=== PATIENT | female | born 1945 | race Caucasian/White ===

== ENCOUNTER 2016-10-17 08:52 | Emergency (ER) | payer MEDICARE, OTHER ==
[~2016-10-17] VITALS: Ht 157.5 cm; Wt 117.9 kg
[2016-10-17] MEDS ORDERED: MONT10TA2 (09:02)
[2016-10-17] MEDS ORDERED: ELIQ5TAB (09:02)
[2016-10-17] MEDS ORDERED: IRBE300T10 (09:02)
[2016-10-17] MEDS ORDERED: SYMBICORT (09:02)
[2016-10-17] MEDS ORDERED: NADO40TA (09:02)
[2016-10-17] MEDS ORDERED: TRIAMTERENE (09:02)
[2016-10-17] MEDS ORDERED: ALBU17IN2 INH (09:02)
[2016-10-17] MEDS ORDERED: methylPREDNISolone INJ 125 MG/2 ML VIAL (J2930) IV ONE (10:00)
[2016-10-17 10:11] LABS: BASO % 0.5 % (0.0-1.0); EOS # 0.2 K/mm3 (0.0-0.50); EOS % 2.5 % (0.0-3.0); LARGE UNSTAINED CELL # 0.2 K/mm3 (0.0-0.4); LARGE UNSTAINED CELL % 2.4 % (0.0-4.0); LYMPH # 1.5 K/mm3 (1.5-4.5); LYMPH % 18.8 % (24.0-44.0); MEAN CORPUSCULAR HEMOGLOBIN 31.2 pg (27.0-33.0); MEAN CORPUSCULAR HGB CONC 33.1 g/dl (32.0-36.5); MEAN CORPUSCULAR VOLUME 94.2 fl (80.0-96.0); MONO # 0.5 K/mm3 (0.0-0.8); MONO % 6.4 % (0.0-5.0); NEUTROPHILS # 4.9 K/mm3 (1.8-7.7); NEUTROPHILS % 69.4 % (36.0-66.0); PLATELET COUNT, AUTOMATED 190 k/mm3 (150-450); RED CELL DISTRIBUTION WIDTH 12.9 % (11.5-14.5); WHITE BLOOD COUNT 7.1 K/mm3 (4.0-10.0)
--- NOTE | 2016-10-17 10:36 | REP ---
CHEST: Portable single view of the chest is performed and compared to a prior study of 05/10/2015. There is no acute infiltrate. Mild chronic interstitial changes are seen in the lung bases. Cardiomediastinal silhouette is unchanged. There is significant right thoracic scoliosis. IMPRESSION: Stable exam with no acute infiltrate. Signed by Francisco Martinez MD 10/17/2016 07:44 P
[2016-10-17 10:39] LABS: ANION GAP 6 MEQ/L (8-16); BLOOD UREA NITROGEN 17 MG/DL (7-18); CALCIUM LEVEL 8.6 MG/DL (8.8-10.2); CARBON DIOXIDE LEVEL 28 MEQ/L (21-32); CHLORIDE LEVEL 103 MEQ/L (98-107); GLOMERULAR FILTRATION RATE > 60.0 (>45); GLUCOSE, FASTING 101 MG/DL (80-110); SODIUM LEVEL 137 MEQ/L (136-145)
[2016-10-17] MEDS ORDERED: IPRATROPIUM 0.5MG/ALBUTEROL 2.5MG INH SOL UD 3ML (DUONEB)(J7620) NEB ONE (10:45)
--- NOTE | 2016-10-17 11:05 | REP ---
CERVICAL SPINE SERIES: Full cervical spine series performed with a total of nine views obtained. There is no compression fracture. There is mild retrolisthesis of C3 on C4 due to posterior facet arthropathy. There is mild ligamentous calcification at the anterior aspect of C5-6. There is mild disc space narrowing at C3-4. There is diffuse narrowing, sclerosis, and spurring at the posterior facet joints. I do not see radiographic evidence of significant neural foraminal narrowing. IMPRESSION: Degenerative changes as above. Signed by Francisco Martinez MD 10/17/2016 07:45 P
[2016-10-17 12:40] VITALS: BP 151/78
--- NOTE | 2016-10-18 08:05 | ECGEPIP ---
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
== END 2016-10-17 13:01 | disposition home or self-care (01) ==
LOC: M ED 11:37
DX: M54.12 Radiculopathy, cervical region (principal); J45.909 Unspecified asthma, uncomplicated; R06.02 Shortness of breath; R94.31 Abnormal electrocardiogram [ECG] [EKG]; I48.91 Unspecified atrial fibrillation; Z91.041 Radiographic dye allergy status; Z79.899 Other long term (current) drug therapy; Z79.01 Long term (current) use of anticoagulants
CPT/HCPCS: 71010; 72052; 80048; 82550; 82553; 83880; 84443; 84484; 85025; 93005; 93041; 94640; 94760; 96374; 99285; J2930

== ENCOUNTER 2016-12-20 03:29 | Inpatient (IN) | payer MEDICARE, OTHER ==
[~2016-12-20] VITALS: Ht 154.9 cm; Wt 139.0 kg
[~2016-12-20 03:29] MED LIST: ALBU17IN2 INH; ELIQ5TAB; IRBE300T10; MONT10TA2; NADO40TA; SYMBICORT; TRIAMTERENE
[2016-12-20] MEDS ORDERED: NORCO, ANEXSIA 5/325MG TABLET (HYDROcodone/ACETAMINOPHEN) PO ONE (03:45)
[2016-12-20] MEDS ORDERED: ONDANSETRON 4MG/2ML VIAL (J2405) IV ONE (06:30)
[2016-12-20] MEDS ORDERED: MORPHINE 4 MG/ML 1ML SYRINGE IV ONE (06:30)
[2016-12-20 06:47] LABS: BASO % 0.3 % (0.0-1.0); EOS # 0.1 K/mm3 (0.0-0.50); EOS % 1.2 % (0.0-3.0); LARGE UNSTAINED CELL # 0.1 K/mm3 (0.0-0.4); LARGE UNSTAINED CELL % 1.1 % (0.0-4.0); LYMPH # 1.5 K/mm3 (1.5-4.5); LYMPH % 15.6 % (24.0-44.0); MEAN CORPUSCULAR HGB CONC 33.8 g/dl (32.0-36.5); MEAN CORPUSCULAR VOLUME 91.8 fl (80.0-96.0); MONO # 0.5 K/mm3 (0.0-0.8); MONO % 5.1 % (0.0-5.0); NEUTROPHILS # 6.9 K/mm3 (1.8-7.7); NEUTROPHILS % 76.7 % (36.0-66.0); PLATELET COUNT, AUTOMATED 201 k/mm3 (150-450); RED CELL DISTRIBUTION WIDTH 12.5 % (11.5-14.5)
[2016-12-20 06:55] LABS: INR 1.15
[2016-12-20 07:27] LABS: ANION GAP 12 MEQ/L (8-16); BLOOD UREA NITROGEN 14 MG/DL (7-18); CALCIUM LEVEL 8.4 MG/DL (8.8-10.2); CARBON DIOXIDE LEVEL 23 MEQ/L (21-32); CHLORIDE LEVEL 93 MEQ/L (98-107); CREATININE FOR GFR 0.85 MG/DL (0.55-1.02); GLOMERULAR FILTRATION RATE > 60.0 (>39); GLUCOSE, FASTING 106 MG/DL (83-110); POTASSIUM SERUM 3.7 MEQ/L (3.5-5.1); SODIUM LEVEL 128 MEQ/L (136-145)
--- NOTE | 2016-12-20 07:31 | REP ---
Clinical: Preoperative assessment. Comparison: 10/17/2016. Technique: Portable AP view of the chest. Findings: Marked scoliosis remains stable. Cardiomegaly cannot be excluded. Lung woods are clear and without focal consolidation, effusion, or pneumothorax. Airway appears patent and midline to the thoracic inlet. Impression: Cannot exclude mild cardiomegaly. Stable chest x-ray without acute cardiopulmonary process appreciated. Signed by Selvin Braxton MD 12/20/2016 07:23 A
--- NOTE | 2016-12-20 07:35 | REP ---
Clinical: Trauma. Technique: AP, lateral, bilateral oblique views of the right ankle. Findings: Comminuted displaced fracture of the distal fibular metaphysis is appreciated along with disruption of the ankle mortise widening along the medial aspect of the joint space. Small fracture fragments in the medial joint space are also identified which are nonspecific and may reflect associated acute versus chronic fractures. Underlying arthritic degenerative changes to the ankle and midfoot along with moderate calcaneal heal spur. Impression: 1. Comminuted displaced fracture of the distal fibular metaphysis with disruption of the joint space widening along the medial mortise. Possible small acute fractures involving the medial malleolus. Overlying soft tissue swelling. 2. Moderate arthritic degenerative changes to the ankle and midfoot. Signed by Selvin Braxton MD 12/20/2016 07:26 A
[2016-12-20] MEDS: IPRATROPIUM 0.5MG/ALBUTEROL 2.5MG INH SOL UD 3ML (DUONEB)(J7620) NEB SCH ×2 (08:00→20:00)
[2016-12-20] MEDS ORDERED: IRBE300T10 PO (08:40)
[2016-12-20] MEDS ORDERED: SYMB16INH INH (08:40)
[2016-12-20] MEDS ORDERED: MONT10TA2 PO (08:40)
[2016-12-20] MEDS ORDERED: ELIQ5TAB PO (08:40)
[2016-12-20] MEDS: SENOKOT S TAB PO SCH ×2 (09:00→21:03)
[2016-12-20] MEDS: SYMBICORT 160/4.5MCG INHALER 6GM INH SCH ×2 (09:00→19:56)
[2016-12-20] MEDS: VITAMIN D 1,000 INTERNATIONAL UNITS TABLET PO SCH (09:00)
[2016-12-20] MEDS ORDERED: MORPHINE 2 MG/ML 1ML SYRINGE IV PRN ×2 (09:15→10:00)
[2016-12-20] MEDS ORDERED: TRIA37.5 PO (09:52)
[2016-12-20] MEDS ORDERED: NADO40TA PO (09:52)
[2016-12-20] MEDS ORDERED: VITAD1000T PO (09:52)
[2016-12-20] MEDS ORDERED: TYLE325T5 PO (09:52)
[2016-12-20] MEDS ORDERED: IPRASOL4 INH (09:52)
[2016-12-20] MEDS ORDERED: ONDANSETRON 4MG/2ML VIAL (J2405) IV PRN (10:00)
[2016-12-20] MEDS ORDERED: IPRATROPIUM 0.5MG/ALBUTEROL 2.5MG INH SOL UD 3ML (DUONEB)(J7620) NEB PRN (10:00)
[2016-12-20] MEDS ORDERED: ACETAMINOPHEN TAB 650MG DOSE (2X325MG) PO PRN (10:00)
[2016-12-20] MEDS: NS 1,000 ML IV SCH (10:29)
--- NOTE | 2016-12-20 11:14 | CR.PDOC ---
[facility] Consultation Consultation DATE OF CONSULTATION: Dec 20, 2016 at 03:29 REFERRING PROVIDER: Dr. Navas ATTENDING PHYSICIAN: Dr. Hamzah Curran REASON FOR CONSULTATION/CHIEF COMPLAINT: Right ankle fracture. HISTORY OF PRESENT ILLNESS: Patient is a 71 y/o obese female who sustained a mechanical fall from standing height resulting in immediate pain, deformity, and inability to bear weight. She did not immediately seek care and presented to the ER this morning after she could not bear weight on the ankle. Patient reported drinking alcohol the night before. She denies and antecedent chest pain , shortness of breath, or other constitutional symptoms. ALLERGIES: Please see below. HOME MEDICATIONS: Please see below. PAST MEDICAL HISTORY: 1. Asthma. 2. Hypertension 3. A fib. 4. Cervical cancer PAST SURGICAL HISTORY: 1. hysterectomy FAMILY HISTORY: non contributory SOCIAL HISTORY: Marital status and/or living arrangements:lives with Tobacco use: social ETOH: none Illicit drug use: none REVIEW OF SYSTEMS: CONSTITUTIONAL: no fevers, chills, or night sweats. CARDIOVASCULAR: No chest pain, palpitations. RESPIRATORY: + wheezing. GENITOURINARY: No frequency, urgency, or burning with urination. MUSCULOSKELETAL: recent contralateral LE pain. GASTROINTESTINAL: no nausea, vomiting, diarrhea. PHYSICAL EXAMINATION: VITAL SIGNS: Please see below. GENERAL APPEARANCE: morbidly obese female, appears stated age, no acute distress. HEENT: normocephalic, atraumatic. RESPIRATORY: non labored breathing. CARDIOVASCULAR: 2+ DP, PT pulse, brisk cap refill all digits RLE. EXTREMITIES: RLE exam demonstrates no open wounds or abrasions. there is diffuse soft tissue swelling about the right ankle. able to flex/extend all toes. NEUROLOGICAL: sensation/motor intact in RLE tibial, sural, saphenous, SPN, DPN distributions. LABORATORY DATA: Please see below. Radiographs: Plain radiographs of the right ankle demonstrate a displaced distal fibula fracture with significant medial clear space widening ASSESSMENT: 71 y/o female with an unstable right ankle fracture PLAN: 1. Pending medical and anesthesia clearance, to OR for ORIF right ankle. 2. Discussed with the patient the risks, benefits, indications, and alternatives of operative versus nonoperative treatment. I also counseled the patient that I will be her operating surgeon, but her follow up care will be conducted by [facility]. She expressed understanding with this arrangement and provided informed consent for right ankle open reduction and internal fixation. All questions were answered. 3. Will be admitted to the hospitalist service post operatively Vital Signs/I&O Vital Signs Date Time Temp Pulse Resp B/P (MAP) Pulse Ox O2 Delivery O2 Flow Rate FiO2 12/20/16 09:40 16 12/20/16 09:24 98.3 82 138/62 (87) 96 Room Air Laboratory Data Labs 24H Laboratory Tests 2 12/20/16 06:41: White Blood Count 9.0, Red Blood Count 3.97L, Hemoglobin 12.3, Hematocrit 36.4, Mean Corpuscular Volume 91.8, Mean Corpuscular Hemoglobin 31.0, Mean Corpuscular Hemoglobin Concent 33.8, Red Cell Distribution Width 12.5, Platelet Count 201, Neutrophils (%) (Auto) 76.7H, Lymphocytes (%) (Auto) 15.6L, Monocytes (%) (Auto) 5.1H, Eosinophils (%) (Auto) 1.2, Basophils (%) (Auto) 0.3 , Neutrophils # (Auto) 6.9, Lymphocytes # (Auto) 1.5, Monocytes # (Auto) 0.5, Eosinophils # (Auto) 0.1, Basophils # (Auto) 0.0, Large Unclassified Cells % 1.1 , Large Unclassified Cells # 0.1, Prothrombin Time 14.9H, Prothromb Time International Ratio 1.15, Activated Partial Thromboplast Time 31.6, Anion Gap 12 , Glomerular Filtration Rate > 60.0, Blood Urea Nitrogen 14, Creatinine 0.85, Sodium Level 128L, Potassium Level 3.7, Chloride Level 93L, Carbon Dioxide Level 23, Calcium Level 8.4L 12/20/16 09:00: 12/20/16 09:21: Urine Random Sodium 70, Urine Random Potassium 48.1, Urine Random Chloride 123 CBC/BMP Laboratory Tests 12/20/16 06:41 Red Blood Count 3.97 L, Mean Corpuscular Volume 91.8, Mean Corpuscular Hemoglobin 31.0, Mean Corpuscular Hemoglobin Concent 33.8, Red Cell Distribution Width 12.5, Neutrophils (%) (Auto) 76.7 H, Lymphocytes (%) (Auto) 15.6 L, Monocytes (%) (Auto) 5.1 H, Eosinophils (%) (Auto) 1.2, Basophils (%) ( Auto) 0.3, Neutrophils # (Auto) 6.9, Lymphocytes # (Auto) 1.5, Monocytes # (Auto ) 0.5, Eosinophils # (Auto) 0.1, Basophils # (Auto) 0.0, Calcium Level 8.4 L Allergies Coded Allergies: Contrast Media (Verified Allergy, Intermediate, 10/17/16) rash Home Medications Scheduled Apixaban Base (Eliquis) 5 Mg Tab, 5 MG PO BID, (Reported) Budesonide/Formoterol (Symbicort 160-4.5 Mcg/Act) 60 Puff/Inhaler Aers, 2 PUFF INH BID, (Reported) Hydrochlorothiazide W/Triamter (Triamterene/Hydrochloroth 37.5-25 mg) 1 Tab Tab , 1 TAB PO DAILY, (Reported) Irbesartan (Irbesartan) 300 Mg Tab, 300 MG PO DAILY, (Reported) Montelukast Sodium (Montelukast Sodium) 10 Mg Tab, 10 MG PO QHS, (Reported) Nadolol (Nadolol) 40 Mg Tab, 40 MG PO DAILY, (Reported) Vitamin D (Vitamin D3) 1,000 Units Tab, 1,000 UNITS PO DAILY, (Reported) Scheduled PRN Acetaminophen (Tylenol) 325 Mg Tab, 650 MG PO Q4H PRN for PAIN, (Reported) Albuterol/Ipratropium (Ipratropium [place]/Albut 0.5-2.5 (3) mg/3Ml) 1 Monica Monica, 1 MONICA INH Q4H PRN for SHORTNESS OF BREATH, (Reported) MICHAEL CURRAN MD Dec 20, 2016 11:14
[2016-12-20] MEDS: IRBESARTAN 150 MG TAB PO SCH (12:15)
[2016-12-20] MEDS: NADOLOL 20MG TABLET PO SCH (12:16)
[2016-12-20 14:35] LABS: ANION GAP 8 MEQ/L (8-16); BLOOD UREA NITROGEN 11 MG/DL (7-18); CALCIUM LEVEL 8.8 MG/DL (8.8-10.2); CARBON DIOXIDE LEVEL 28 MEQ/L (21-32); CHLORIDE LEVEL 93 MEQ/L (98-107); CREATININE FOR GFR 0.76 MG/DL (0.55-1.02); GLOMERULAR FILTRATION RATE > 60.0 (>39); GLUCOSE, FASTING 104 MG/DL (83-110); POTASSIUM SERUM 4.2 MEQ/L (3.5-5.1); SODIUM LEVEL 129 MEQ/L (136-145)
[2016-12-20] MEDS ORDERED: ALBU17IN INH (15:11)
[2016-12-20] MEDS: HEPARIN SOD (PORCINE) 5000 UNITS/ML VIAL SQ SCH ×2 (16:19→21:03)
--- NOTE | 2016-12-20 16:42 | HPE ---
DATE OF ADMISSION: 12/20/2016 PRIMARY CARE PROVIDER: Carol Coffey MD CHIEF COMPLAINT: Fall with right ankle pain. HISTORY OF PRESENT ILLNESS: This is a 71-year-old female patient with underlying medical history of obesity, atrial fibrillation, on Eliquis, last dose was yesterday night, asthma, hypertension, questionable obstructive sleep apnea. The patient was at a democr[employer] with the family. Has been drinking a lot of beers. Subsequently, the patient sustained a mechanical fall. She stepped into a pothole and sprained her right ankle from standing high, resulting in pain and deformity, inability to bear weight. The patient did not immediately seek care. Presented to the emergency department in the morning after she could not bear weight. Denies any chest pain, head injury, loss of consciousness, shortness of breath. The patient stated that she is taking low salt diet at baseline. Reported that drinking a lot of alcohol was an exception last night. Usually she does not drink that much and usually she only drinks on very rare occasions, once a month. The patient's baseline ambulates without assistance, but is limited due to her asthma. She baseline can ambulate from the emergency room to the parking lot without any difficulty and is able to do household cleaning and mobility is limited by respiration not by chest pain. Used to see Dr. Monroy as pulmonology. Does not use CPAP or oxygen at home. ALLERGIES: CONTRAST MEDIA. PAST MEDICAL HISTORY: Asthma. Hypertension. Atrial fibrillation. Cervical cancer. PAST SURGICAL HISTORY: Hysterectomy. Back surgery. FAMILY HISTORY: Reported mother with breast cancer at age 63, father with myocardial infarction ([place]) at age 55. SOCIAL HISTORY: Lives with . Denies smoking. Drinks alcoholic beverages on occasion, once a month. Has been drinking excessively last night. Denies illicit drug use. REVIEW OF SYSTEMS: Reported right lower extremity pain. All other review of systems are negative. HOME MEDICATIONS: - acetaminophen 650 mg by mouth every 4 hours as needed - Ventolin inhaler four times a day as needed - DuoNebs every 4 hours as needed - Eliquis 5 mg by mouth twice a day - Symbicort inhalation twice a day - hydrochlorothiazide triamterine 37.5, 25 mg by mouth daily - irbesartan 300 mg by mouth daily - Singulair 10 mg by mouth at bedtime - Nadolol 40 mg by mouth daily - vitamin D 1000 units by mouth daily PHYSICAL EXAMINATION: VITAL SIGNS: Temperature 99.3, pulse 82, respirations 16, blood pressure 151/80, pulse oximetry 98. GENERAL: The patient morbidly obese. In no acute distress. Comfortable. HEENT: Normocephalic, atraumatic. PULMONARY: Bilateral wheeze, mild. CARDIAC: Regular rate and rhythm. Normal S1, S2. ABDOMEN: Soft, nontender, nondistended. Positive bowel sounds. EXTREMITIES: No open wounds. Soft tissue swelling right ankle. Able to move toes. Sensation is intact. LABORATORY: WBC 9, hemoglobin and hematocrit 12.3/36.4, platelets 201. Chemistry: Sodium 128, potassium 3.7, chloride 93, bicarbonate 23, BUN 14, creatinine 0.8. EKG shows atrial fibrillation with no ST segment changes. X-rays show comminuted displaced fracture of distal fibular metaphysis with disruption of the joint space, widening along the medial mortise. Possible small acute fracture involving the medial malleolus. Overlying soft tissue swelling. ASSESSMENT AND PLAN: This is a 71-year-old female patient with underlying medical history of obesity, asthma, hypertension, atrial fibrillation, anticoagulation, admitted status post mechanical fall with unstable right ankle fracture. PROBLEMS: 1. Mechanical fall with unstable right ankle fracture. Possible open reduction internal fixation of right ankle. Orthopedics has been consulted. X-rays appreciated. Pain medication and bowel regimen is prescribed. Withholding Eliquis for surgery. Will restart Eliquis after surgery. IV fluids given. Nothing by mouth (npo) for procedure. The patient was Metabolic Equivalent of Task (MET) score 4, low intermediate risk with no known previous coronary arterial disease, or cerebrovascular disease. Low intermediate risk for intermediate risk procedure. Currently is medically optimized. Continue beta blockers. Deep venous thrombosis (DVT) prophylaxis as per orthopedics. 2. Atrial fibrillation. Continue beta blockers. 3. Hypertension. Continue Avapro., Nadolol. Holding triamterine and hydrochlorothiazide for now giving the patient is receiving IV fluids. 4. Asthma. Continue home medication of Symbicort, Singulair, nebulizer treatments. 5. Vitamin D deficiency. Continue supplementation. 6. Questionable history of obstructive sleep apnea. Will need outpatient followup. Obstructive sleep apnea (ANTONY) protocol. 7. Morbid obesity complicating care. 8. Deep venous thrombosis (DVT) prophylaxis. The patient was on Eliquis. Currently on sequential compression devices. Holding Eliquis and anticoagulation for surgery, likely tomorrow. DISPOSITION: Pending OR.
[2016-12-20 18:27] VITALS: BP 156/80
[2016-12-20] MEDS: MONTELUKAST 10 MG TAB PO SCH (21:02)
[2016-12-20] MEDS: PERCOCET 5MG/325MG TAB PO PRN (21:04)
[2016-12-20 22:00] VITALS: BP 102/56
[2016-12-21] MEDS: IPRATROPIUM 0.5MG/ALBUTEROL 2.5MG INH SOL UD 3ML (DUONEB)(J7620) NEB SCH ×4 (01:14→20:00)
[2016-12-21] MEDS: NS 1,000 ML IV SCH ×2 (01:43→11:43)
[2016-12-21] MEDS: PERCOCET 5MG/325MG TAB PO PRN ×4 (05:51→21:35)
[2016-12-21] MEDS: HEPARIN SOD (PORCINE) 5000 UNITS/ML VIAL SQ SCH ×3 (05:52→21:34)
[2016-12-21 06:00] VITALS: BP 120/50
[2016-12-21] MEDS: SYMBICORT 160/4.5MCG INHALER 6GM INH SCH ×2 (07:15→19:28)
--- NOTE | 2016-12-21 07:22 | ECGEPIP ---
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
[2016-12-21 07:49] LABS: MEAN CORPUSCULAR HEMOGLOBIN 31.7 pg (27.0-33.0); MEAN CORPUSCULAR HGB CONC 34.9 g/dl (32.0-36.5); MEAN CORPUSCULAR VOLUME 90.9 fl (80.0-96.0); RED CELL DISTRIBUTION WIDTH 12.8 % (11.5-14.5); WHITE BLOOD COUNT 7.7 K/mm3 (4.0-10.0)
[2016-12-21 08:16] LABS: ANION GAP 7 MEQ/L (8-16); BLOOD UREA NITROGEN 13 MG/DL (7-18); CALCIUM LEVEL 8.2 MG/DL (8.8-10.2); CARBON DIOXIDE LEVEL 27 MEQ/L (21-32); CHLORIDE LEVEL 97 MEQ/L (98-107); CREATININE FOR GFR 0.96 MG/DL (0.55-1.02); GLOMERULAR FILTRATION RATE > 60.0 (>39); GLUCOSE, FASTING 103 MG/DL (83-110); MAGNESIUM LEVEL 1.8 MG/DL (1.8-2.4); POTASSIUM SERUM 3.8 MEQ/L (3.5-5.1); SODIUM LEVEL 131 MEQ/L (136-145)
[2016-12-21] MEDS: IRBESARTAN 150 MG TAB PO SCH (10:21)
[2016-12-21] MEDS: SENOKOT S TAB PO SCH ×2 (10:22→21:34)
[2016-12-21] MEDS: VITAMIN D 1,000 INTERNATIONAL UNITS TABLET PO SCH (10:22)
[2016-12-21] MEDS: NADOLOL 20MG TABLET PO SCH (10:22)
[2016-12-21 14:00] VITALS: BP 144/89
--- NOTE | 2016-12-21 17:38 | IPN ---
DATE: 12/20/2016 Patient seen and examined. No acute events overnight. Denies any chest pain, pressure or discomfort. Denies any fevers or chills. VITAL SIGNS: Temperature 98.8, pulse 80, respirations 18, blood pressure 120/50, pulse oximetry 93% on room air. LABORATORY DATA: WBC 7.7, hemoglobin and hematocrit 10.1/29, platelets 151. Sodium 131, potassium 3.8, chloride 97, bicarbonate 27, BUN 13, creatinine 0.96. PHYSICAL EXAMINATION: GENERAL: Patient obese, alert, oriented times three, in no acute distress. HEENT: Normocephalic, atraumatic. PULMONARY: Bilaterally clear to auscultation. CARDIAC: Regular rate and rhythm. Normal S1, S2. EXTREMITIES: Cast in place. Soft tissue swelling right lower extremity. Able to move bilateral toes. Dorsalis pedis/posterior tibial (DP/P T) pulses intact bilaterally. ASSESSMENT AND PLAN: This is a 71-year-old female patient with underlying medical history of obesity, asthma, hypertension, atrial fibrillation, on anticoagulation with Eliquis, admitted status post mechanical fall with unstable right ankle fracture. 1. Mechanical fall with unstable right ankle fracture. Possible open reduction internal fixation of right ankle tomorrow. Orthopaedics has been consulted. X-ray appreciated. Pain regimen and bowel regimen as prescribed. Holding Eliquis for surgery. Restart Eliquis after surgery. IV fluids. Nothing by mouth prior to procedure. Patient has METs score greater than 4, low intermediate risk, with no known previous coronary artery disease or cerebral vascular disease for low intermediate risk procedures. Previous echos reviewed with Dr. Aleman. Deep venous thrombosis (DVT) prophylaxis. Heparin subcutaneous. Continue beta blockers. Currently medically optimized. 2. Atrial fibrillation. Continue beta blockers. Will restart Eliquis once surgery is done. 3. Hypertension. Continue Avapro, nadolol. Holding triamterine and hydrochlorothiazide. Receiving IV fluids. 4. Asthma. Continue Symbicort, Singulair, nebulizer treatment. 5. Vitamin D deficiency. Continue supplementation. 6. Questionable history of obstructive sleep apnea. Will need outpatient followup. Obstructive sleep apnea (ANTONY) protocol. 7. Morbid obesity, complicating care. 8. Deep venous thrombosis (DVT) prophylaxis. Heparin subcutaneous. Will restart Eliquis and discontinue heparin subcutaneous after surgery. DISPOSITION: Pending operating room (OR).
[2016-12-21] MEDS: MONTELUKAST 10 MG TAB PO SCH (21:34)
[2016-12-21 22:00] VITALS: BP 86/44
--- NOTE | 2016-12-21 22:20 | REPUSA ---
Clinical history: Pain. Comparison: none. Findings: 2 views of the left knee were obtained. The osseous structures are intact, without evidence of fracture or dislocation. There is mild joint space narrowing with surrounding osteophytes. The so ft tissues are within normal limits. Impression: No acute findings. Mild osteoarthritis.
[2016-12-22] VITALS (7 sets, daily range): BP systolic 107–125; BP diastolic 57–65
[2016-12-22] MEDS: IPRATROPIUM 0.5MG/ALBUTEROL 2.5MG INH SOL UD 3ML (DUONEB)(J7620) NEB SCH ×4 (01:30→20:00)
[2016-12-22] MEDS: PERCOCET 5MG/325MG TAB PO PRN ×4 (01:45→21:49)
[2016-12-22] MEDS: NS 1,000 ML IV SCH ×2 (02:35→21:48)
[2016-12-22 07:11] LABS: MEAN CORPUSCULAR HEMOGLOBIN 31.9 pg (27.0-33.0); MEAN CORPUSCULAR HGB CONC 34.4 g/dl (32.0-36.5); MEAN CORPUSCULAR VOLUME 92.6 fl (80.0-96.0); RED CELL DISTRIBUTION WIDTH 12.8 % (11.5-14.5); WHITE BLOOD COUNT 7.9 K/mm3 (4.0-10.0)
[2016-12-22] MEDS: SYMBICORT 160/4.5MCG INHALER 6GM INH SCH ×2 (07:12→20:09)
[2016-12-22 07:48] LABS: CALCIUM LEVEL 7.9 MG/DL (8.8-10.2); CREATININE FOR GFR 1.4 MG/DL (0.55-1.02); GLOMERULAR FILTRATION RATE 39.6 (>39); MAGNESIUM LEVEL 1.9 MG/DL (1.8-2.4); POTASSIUM SERUM 3.8 MEQ/L (3.5-5.1)
[2016-12-22] MEDS: NADOLOL 20MG TABLET PO SCH (08:38)
[2016-12-22] MEDS: IRBESARTAN 150 MG TAB PO SCH (08:38)
[2016-12-22] MEDS ORDERED: IRBESARTAN 75MG TABLET PO ONE (08:45)
[2016-12-22] MEDS: SENOKOT S TAB PO SCH ×2 (08:50→21:48)
[2016-12-22] MEDS: VITAMIN D 1,000 INTERNATIONAL UNITS TABLET PO SCH (08:50)
[2016-12-22] MEDS ORDERED: fentaNYL 100 MCG/2 ML INJECTION (J3010) As Ordered ONE (13:47)
[2016-12-22] MEDS ORDERED: ceFAZolin 1GM INJ (J0690) As Ordered ONE (13:58)
[2016-12-22] MEDS ORDERED: BUPIVACAINE/EPIN 0.25% 30 ML VIAL As Ordered ONE (13:58)
--- NOTE | 2016-12-22 13:59 | IPN ---
DATE: 12/22/2016 The patient seen and examined. No acute events overnight. Denies any chest pain, pressure or discomfort. Reported left knee pain. X-ray is appreciated with no fracture. The patient has history of arthritis on the left lower extremity, left knee. VITAL SIGNS: Temperature 98.6, pulse 80, respirations 16, blood pressure 125/59, pulse oximetry 95% on room air. LABORATORY DATA: WBC 7.9, hemoglobin and hematocrit 10/29.1, platelets 171. Chemistries: Sodium 130, potassium 2.8, chloride 96, bicarbonate 26, BUN 21, creatinine 1.4. PHYSICAL EXAMINATION: GENERAL: Patient obese. Alert and oriented times three, in no acute distress. HEENT: Normocephalic, atraumatic. PULMONARY: Bilaterally clear to auscultation. CARDIAC: Regular rate and rhythm. Normal S1, S2. ABDOMEN: Soft. Nontender. Positive bowel sounds. EXTREMITIES: Cast in place. Soft tissue swelling right lower extremity. Able to move bilateral toes. Dorsalis pedis/posterior tibial (DP/PT) pulses intact bilateral. ASSESSMENT AND PLAN: This is a 71-year-old female patient with underlying medical history of obesity, asthma, hypertension, atrial fibrillation on anticoagulation with Eliquis at home, admitted status post mechanical fall with unstable right ankle fracture. PROBLEMS: 1. Mechanical fall with unstable right ankle fracture. Patient is scheduled for open reduction internal fixation today. Orthopaedics has been consulted. X-ray appreciated. Pain regimen and bowel regimen as prescribed. Holding Eliquis. Will restart Eliquis tomorrow after surgery. Sequential compression device for today. Heparin subcutaneous has been held since last night. IV fluids. Nothing by mouth for procedure. Bowel regimen as ordered. 2. Acute kidney injury. Possibly prerenal. IV fluids. Hold ARBs. No NSAIDS. Follow up renal ultrasound and urine studies. Continue to monitor. 3. Atrial fibrillation. Continue beta raissa. Restart Eliquis tomorrow. 4. Hypertension. Continue nadolol. Holding Avapro, triamterine and hydrochlorothiazide. Receiving IV fluids. Patient with elevated creatinine today. 5. Asthma. Continue Symbicort, Singulair, nebulizer treatment. 6. Vitamin D deficiency. Continue supplementation. 7. Questionable obstructive sleep apnea. Outpatient followup. Obstructive sleep apnea (ANTONY) protocol. 8. Morbid obesity complicating care. 9. Deep venous thrombosis (DVT) prophylaxis. Heparin subcutaneous was given last night, will restart Eliquis tomorrow. Sequential compression device today. DISPOSITION: Pending operating room (OR) today.
[2016-12-22 14:03] LABS: OSMOLALITY URINE 297 MOSM/KG (500-800)
[2016-12-22] MEDS ORDERED: MIDAZOLAM INJ 2 MG/2 ML VIAL (J2250) As Ordered ONE (14:37)
[2016-12-22] MEDS ORDERED: ceFAZolin 2 GM/D5W 50 ML IV BAG (J0690) As Ordered ONE (15:21)
[2016-12-22] MEDS ORDERED: PHENYLephrine HCL 500 MCG/5 ML (100MCG/ML) SYRINGE (J2370) As Ordered ONE (16:04)
[2016-12-22] MEDS ORDERED: ePHEDrine SULFATE 25 MG/5 ML(5MG/ML) SYRINGE As Ordered ONE (16:04)
[2016-12-22] MEDS ORDERED: PROPOFOL 200 MG/20 ML VIAL As Ordered ONE (16:05)
--- NOTE | 2016-12-22 16:37 | REP ---
Clinical: Status post fixation for lateral malleolar fracture. Technique: Intraoperative fluoroscopic imaging. Findings: Two intraoperative fluoroscopic images demonstrate the patient to be status post open reduction and fixation for lateral malleolar fracture. Satisfactory reduction and fixation noted. Total fluoroscopic time 12 seconds. Impression: Status post satisfactory reduction and fixation. Signed by Selvin Braxton MD 12/22/2016 04:29 P
[2016-12-22] MEDS ORDERED: MEPERIDINE INJ 25 MG/ML VIAL (J2175) IV PRN (17:15)
[2016-12-22] MEDS ORDERED: fentaNYL 100 MCG/2 ML INJECTION (J3010) IV PRN (17:15)
[2016-12-22] MEDS ORDERED: PERCOCET 5MG/325MG TAB PO PRN (17:15)
[2016-12-22] MEDS ORDERED: ONDANSETRON 4MG/2ML VIAL (J2405) IV PRN ×2 (17:15→18:15)
[2016-12-22] MEDS ORDERED: METOCLOPRAMIDE INJ 10MG/2ML VIAL (J2765) IV PRN (17:15)
[2016-12-22] MEDS ORDERED: LR 1,000 ML IV SCH (17:15)
[2016-12-22] MEDS ORDERED: PERCOCET 5MG/325MG TAB As Ordered ONE (17:32)
[2016-12-22] MEDS ORDERED: MORPHINE 4 MG/ML 1ML SYRINGE IV PRN (18:15)
[2016-12-22] MEDS ORDERED: ACETAMINOPHEN TAB 650MG DOSE (2X325MG) PO PRN (18:15)
[2016-12-22] MEDS ORDERED: D5W/LR 1,000 ML IV SCH (18:15)
--- NOTE | 2016-12-22 20:18 | ECHO ---
DATE OF PROCEDURE: 12/20/2016 REFERRING PHYSICIAN: Farida Navas MD PATIENT LOCATION: Room 5140 REASON FOR ECHOCARDIOGRAM: Shortness of breath. 2D MEASUREMENTS: IVS: 1.3 cm LV: 3.9 cm LVPW: 1.3 cm Aortic root: 2.8 LA: 4.1 cm IVC: 1.8 cm DOPPLER MEASUREMENTS: Peak velocity across the aortic valve: 1.7 m/s Peak velocity across the LVOT: 0.9 m/s Peak gradient across the aortic valve: 11 mmHg Mitral E: 1.0, Mitral A: 0.4, with a ratio of 2.3 Maximum tricuspid valve velocity: 2.5 m/s 2D COMMENTS: 1. Mildly increased left ventricular wall thickness with normal left ventricular size and normal global left ventricular systolic function. The estimated global left ventricular systolic ejection fraction is 60 to 65%. 2. Mildly enlarged left atrium. Normal right atrium and right ventricle. 3. The atrial septum appeared to be normal without evidence of defect or shunt. 4. Normal aortic root. 5. No pericardial effusion seen. 6. Mildly calcified aortic valve. Leaflet excursion appeared to be normal. Mildly calcified mitral annuls with normal anterior mitral valve leaflet motion. Normal tricuspid valve and pulmonic valve. The proximal pulmonary artery branches were not well visualized. 7. The inferior vena cava was normal in size, central venous pressure is most likely normal. DOPPLER: Only mild tricuspid regurgitation detected. The calculated pulmonary artery systolic pressure varies between 30 to 40 mmHg. Assessment of the left ventricular diastolic function appeared to be normal. IMPRESSION: 1. Normal global left ventricular systolic function with mild concentric left ventricular hypertrophy. Left ventricular diastolic function appeared to be normal. 2. Aortic valve sclerosis without significant stenosis or aortic regurgitation. 3. Mildly enlarged left atrium with mitral annulus calcification, no significant mitral regurgitation detected. 4. Mild tricuspid regurgitation with mild pulmonary hypertension. 5. There is an echogenic structure noted in the right atrium in limited views and this seems to be artifactual from the annulus at the base of the left ventricle. MTDD
[2016-12-22] MEDS: MONTELUKAST 10 MG TAB PO SCH (21:48)
[2016-12-22] MEDS: ASCORBIC ACID 500 MG TAB PO SCH (21:48)
[2016-12-22] MEDS: PREGABALIN 50 MG CAP (LYRICA) PO SCH (21:48)
[2016-12-23] MEDS: IPRATROPIUM 0.5MG/ALBUTEROL 2.5MG INH SOL UD 3ML (DUONEB)(J7620) NEB SCH ×4 (02:00→19:17)
[2016-12-23] MEDS: PERCOCET 5MG/325MG TAB PO PRN ×2 (05:17→10:42)
[2016-12-23 06:00] VITALS: BP 112/61
[2016-12-23] MEDS: NS 1,000 ML IV SCH (06:40)
[2016-12-23 06:58] LABS: MEAN CORPUSCULAR HEMOGLOBIN 31.8 pg (27.0-33.0); MEAN CORPUSCULAR HGB CONC 34.3 g/dl (32.0-36.5); MEAN CORPUSCULAR VOLUME 92.5 fl (80.0-96.0); RED CELL DISTRIBUTION WIDTH 13.1 % (11.5-14.5); WHITE BLOOD COUNT 8.5 K/mm3 (4.0-10.0)
[2016-12-23 07:09] LABS: CALCIUM LEVEL 7.9 MG/DL (8.8-10.2); CREATININE FOR GFR 1.37 MG/DL (0.55-1.02); GLOMERULAR FILTRATION RATE 40.6 (>39); MAGNESIUM LEVEL 1.9 MG/DL (1.8-2.4); POTASSIUM SERUM 4.2 MEQ/L (3.5-5.1)
[2016-12-23] MEDS: SYMBICORT 160/4.5MCG INHALER 6GM INH SCH ×2 (07:22→19:16)
[2016-12-23 07:24] VITALS: O2SAT 98
--- NOTE | 2016-12-23 07:57 | REP ---
Clinical: Acute renal insufficiency. Technique: Real time beard scale ultrasound examination using curved array transducer. Findings: The left kidney is not visualized. The right kidney is normal in contour, size, echogenicity, and reniform shape with evidence for moderate hydronephrosis and proximal hydroureter as well as 1.9 cm mid pole cyst. No obvious nephrolithiasis or mass lesion appreciated. Right kidney measures 9.9 x 5.6 x 4.9 cm. The bladder is distended and measures 17.7 x 11.7 x 10.7 cm (1163 ml). Impression: Moderate right-sided hydroureteronephrosis and distended bladder. Left kidney not visualized. Signed by Selvin Braxton MD 12/23/2016 07:48 A
[2016-12-23] MEDS ORDERED: MIRALAX *UNIT DOSE* 17GM PACKET PO SCH (09:00)
[2016-12-23] MEDS ORDERED: APIXABAN 5 MG TAB (ELIQUIS) PO SCH (09:00)
--- NOTE | 2016-12-23 10:07 | REP ---
Clinical: Ankle fracture for postoperative evaluation. Technique: AP and lateral views. Findings: The patient is status post open reduction and fixation for lateral malleolar/distal fibular fracture. Satisfactory reduction is appreciated. Postoperative changes noted. Impression: Status post open reduction and fixation. Signed by Selvin Braxton MD 12/23/2016 09:58 A
[2016-12-23] MEDS: NADOLOL 20MG TABLET PO SCH (10:41)
[2016-12-23] MEDS: PREGABALIN 50 MG CAP (LYRICA) PO SCH ×2 (10:42→19:58)
--- NOTE | 2016-12-23 10:42 | REP ---
Clinical: Obstructive uropathy. Comparison: 08/05/2013. Findings: Mild right-sided hydroureteronephrosis and distended bladder are appreciated without obstructive ureteral calculus or obvious cause for bladder obstruction. The right kidney includes 3 mm nonobstructing calculus which is unchanged compared to 2014. The left kidney/ureter are grossly normal. Calcifications in the pelvis are compatible with phleboliths and remain stable. Liver, spleen, pancreas, and bilateral adrenal glands are normal for noncontrast evaluation. Cholelithiasis suggested without evidence for acute cholecystitis. The enteric system is without obstruction or acute inflammatory process. Sigmoid diverticulosis noted without acute diverticulitis. No pelvic fluid or ascites. No free air. No adenopathy. Musculoskeletal structures demonstrate age-related degenerative changes without focal osseous abnormality. Lung bases demonstrate chronic changes with small left lower lobe atelectasis/12 mm consolidation. Impression: 1. Mild right-sided hydroureteronephrosis and distended bladder without obvious cause. Stable 3 mm nonobstructing right renal calculus. Normal appearance to the left kidney/ureter. 2. Colonic diverticulosis without acute diverticulitis. 3. Small focus of left basilar atelectasis/consolidation may warrant followup chest CT at 3 months. Signed by Selvin Braxton MD 12/23/2016 10:33 A
[2016-12-23] MEDS: VITAMIN D 1,000 INTERNATIONAL UNITS TABLET PO SCH (10:43)
[2016-12-23] MEDS: SENOKOT S TAB PO SCH ×2 (10:43→19:58)
[2016-12-23] MEDS: ASCORBIC ACID 500 MG TAB PO SCH ×2 (10:43→19:58)
--- NOTE | 2016-12-23 11:44 | SMCUROLCON ---
Urology Consultation General Date of Consultation 12/23/16 Reason For Consultation This patient is seen for Closed Fracture Of Right Distal Fibula. History of Present Illness The patient is a [71]-year-old [female] with a past medical history for [HTN; AFIB; asthma; sleep apnea; morbid obesity; cervical cancer (MAYTE/BSO)]. Consulted for right HUN/distended bladder; ARF. Jay insertion recommended. Serial Cr and repeat US (12/24/16). If persist Cr rise and hydronephrosis, consider JJ insertion. Otherwise, MAG3 with lasix (12/24/16). Full consultation dictated. NPO 2400hr. Cardiology clearance. Medications Current Medications Current Medications Acetaminophen (Tylenol Tab) 650 mg Q4HP PRN PO MILD PAIN OR FEVER; Start at 10:00; Stop 12/22/16 at 18:10; Status DC Acetaminophen (Tylenol Tab) 650 mg Q4HP PRN PO MILD PAIN (PS 1-4); Start at 18:15; Stop 01/21/17 at 18:14 Albuterol/ Ipratropium (Duoneb (Ipr 0.5mg/Alb 2.5mg)) 3 ml Q2HP PRN NEB SOB/ WHEEZING; Start 12/20/16 at 10:00; Stop 01/21/17 at 09:59 Albuterol/ Ipratropium (Duoneb (Ipr 0.5mg/Alb 2.5mg)) 3 ml RQ6H NEB Last administered on 12/22/16 13:18; Start 12/20/16 at 08:00; Stop 01/21/17 at 07:59 Apixaban (Eliquis) 5 mg BID PO ; Start 12/23/16 at 09:00; Stop 12/23/16 at 10:26; Status DC Ascorbic Acid (Vitamin C) 500 mg BID PO Last administered on 12/23/16 10:43; Start 12/22/16 at 21:00; Stop 01/21/17 at 20:59 Budesonide/ Formoterol Fumarate (Symbicort 160/ 4.5mcg) 2 puff BID INH Last administered on 12/23/16 07:22; Start 12/20/16 at 09:00; Stop 01/21/17 at 08:59 Cefazolin Sodium/ Dextrose 2 gm/IV Miscellaneous Supplies 50 ml @ 75 mls/hr ASDIRECTED IV ; Start 12/20/16 at 16:30; Stop 12/20/16 at 17:43; Status DC Cefazolin Sodium/ Dextrose 2 gm/IV Miscellaneous Supplies 50 ml @ 75 mls/hr PREOP IV ; Start 12/22/16 at 06:00; Stop 12/22/16 at 16:15; Status DC Cefazolin Sodium/ Dextrose 2 gm/IV Miscellaneous Supplies 50 ml @ 75 mls/hr PREOP IV ; Start 12/22/16 at 06:00; Stop 12/22/16 at 18:20; Status DC Cefazolin Sodium/ Dextrose 2 gm/IV Miscellaneous Supplies 50 ml @ 75 mls/hr Q6H IV Last administered on 12/23/16 04:34; Start 12/22/16 at 22:00; Stop 12/23/16 at 06:00; Status DC Dextrose/Lactated Ringer's 1,000 ml @ 100 mls/hr Q10H IV Last administered on 12/22/16 18:00; Start 12/22/16 at 18:15; Stop 12/22/16 at 20:35; Status DC Fentanyl Citrate (Sublimaze) 25 mcg Q5MP PRN IV MODERATE PAIN (PS 4-7); Start 12/22/16 at 17:15; Stop 12/22/16 at 18:15; Status DC Heparin Sodium (Porcine) (Heparin) 5,000 units Q8H SQ Last administered on 21:34; Start 12/20/16 at 14:00; Stop 12/21/16 at 23:00; Status DC Heparin Sodium (Porcine) (Heparin) 5,000 units Q8H SQ ; Start 12/23/16 at 14:00; Stop 12/28/16 at 13:59 Home Med (Med Rec Complete!) ASDIRECTED XX ; Start 12/20/16 at 10:00; Stop at 10:00; Status DC Irbesartan (Avapro) 300 mg DAILY PO Last administered on 12/21/16 10:21; Start 12/20/16 at 09:00; Stop 12/22/16 at 12:44; Status DC Lactated Ringer's 1,000 ml @ 100 mls/hr Q10H IV ; Start 12/22/16 at 17:15; Stop 12/22/16 at 18:15; Status DC Meperidine HCl (Demerol) 12.5 mg Q5MP PRN IV SHIVERING; Start 12/22/16 at 17:15 ; Stop 12/22/16 at 18:15; Status DC Metoclopramide HCl (REGLAN INJection) 10 mg Q6HP PRN IV NAUSEA OR VOMITING; Start 12/22/16 at 17:15; Stop 12/22/16 at 18:15; Status DC Miscellaneous (Unresolved Clarification Entry) SEE LABEL COMMENTS UNRESOLVED XX ; Start 12/22/16 at 00:01; Stop 12/22/16 at 20:31; Status DC Montelukast Sodium (Singulair) 10 mg QHS PO Last administered on 12/22/16 21:48 ; Start 12/20/16 at 21:00; Stop 01/21/17 at 20:59 Morphine Sulfate (Morphine Sulfate Inj) 2 mg Q2HP PRN IV SEVERE PAIN (PS 8-10) Last administered on 12/20/16 14:18; Start 12/20/16 at 10:00; Stop 12/22/16 at 18: 14; Status DC Morphine Sulfate (Morphine Sulfate Inj) 2 mg Q4HP PRN IV PAIN Last administered on 12/20/16 09:23; Start 12/20/16 at 09:15; Stop 12/20/16 at 10:00; Status DC Morphine Sulfate (Morphine Sulfate Inj) 3 mg Q2HP PRN IV PAIN; Start 12/22/16 at 18:15; Stop 12/29/16 at 18:14 Nadolol (Corgard) 40 mg DAILY PO Last administered on 12/23/16 10:41; Start 12/20/16 at 09:00; Stop 01/21/17 at 08:59 Ondansetron HCl (ZOFRAN INJection) 4 mg Q4HP PRN IV NAUSEA OR VOMITING; Start 12/22/16 at 17:15; Stop 12/22/16 at 18:15; Status DC Ondansetron HCl (ZOFRAN INJection) 4 mg Q6HP PRN IV NAUSEA OR VOMITING; Start 12/20/16 at 10:00; Stop 12/22/16 at 18:15; Status DC Ondansetron HCl (ZOFRAN INJection) 4 mg Q6HP PRN IV NAUSEA; Start 12/22/16 at 18 :15; Stop 01/21/17 at 18:14 Oxycodone/ Acetaminophen (Percocet 5mg/ 325mg Tablet) 1 tab ASDIRECTED PRN PO MILD/MODERATE PAIN (PS 1-7) Last administered on 12/22/16 17:36; Start 12/22/16 at 17:15; Stop 12/22/16 at 18:15; Status DC Oxycodone/ Acetaminophen (Percocet 5mg/ 325mg Tablet) 1 tab Q4HP PRN PO MODERATE PAIN (PS 5-7) Last administered on 12/22/16 10:04; Start 12/20/16 at 10: 00; Stop 12/22/16 at 18:16; Status DC Oxycodone/ Acetaminophen (Percocet 5mg/ 325mg Tablet) 1 tab Q4HP PRN PO PAIN; Start 12/22/16 at 18:15; Stop 12/29/16 at 18:14 Oxycodone/ Acetaminophen (Percocet 5mg/ 325mg Tablet) 2 tab Q4HP PRN PO PAIN Last administered on 12/23/16 10:42; Start 12/22/16 at 18:15; Stop 12/29/16 at 18 :14 Pregabalin (Lyrica) 50 mg BID PO Last administered on 12/23/16 10:42; Start 12/22/16 at 21:00; Stop 12/29/16 at 20:59 Senna/Docusate Sodium (Senokot S) 1 tab BID PO Last administered on 12/23/16 10 :43; Start 12/20/16 at 09:00; Stop 01/21/17 at 08:59 Sodium Chloride 1,000 ml @ 100 mls/hr Q10H IV Last administered on 12/22/16 02 :35; Start 12/20/16 at 10:00; Stop 12/22/16 at 18:11; Status DC Sodium Chloride 1,000 ml @ 100 mls/hr Q10H IV Last administered on 12/23/16 06 :40; Start 12/22/16 at 20:45; Stop 12/23/16 at 07:39; Status DC Tamsulosin HCl (Flomax) 0.4 mg QHS PO ; Start 12/23/16 at 21:00; Stop 01/22/17 at 20:59 Vitamin D (Vitamin D) 1,000 units DAILY PO Last administered on 12/23/16t 10:43 ; Start 12/20/16 at 09:00; Stop 01/21/17 at 08:59 Allergies Allergies: Coded Allergies: Contrast Media (Verified Allergy, Intermediate, 10/17/16) rash Vital Signs/I&O Vital Signs Date Time Temp Pulse Resp B/P (MAP) Pulse Ox O2 Delivery O2 Flow Rate FiO2 12/23/16 11:12 16 12/23/16 10:41 74 112/61 12/23/16 09:00 Room Air 12/23/16 07:24 98 1.0 12/23/16 06:00 99.4 I&O- Last 24 Hours up to 6 AM 12/23/16 06:00 Intake Total 3205 ml Output Total 500 ml Balance 2705 ml Laboratory Data 24H Labs Laboratory Tests 2 12/22/16 13:48: Urine Appearance HAZY, Urine Color YELLOW, Urine pH 5.0, Urine Specific [place] 1.011, Urine Protein NEGATIVE, Urine Glucose (UA) NEGATIVE, Urine Ketones NEGATIVE, Urine Urobilinogen 0.2, Urine Bilirubin NEGATIVE, Urine Leukocyte Esterase NEGATIVE, Urine Blood NEGATIVE, Urine Nitrite NEGATIVE, Urine WBC (Auto ) 1, Urine RBC (Auto) 1, Urine Hyaline Casts (Auto) 7, Urine Bacteria (Auto) 2+H , Urine Squamous Epithelial Cells 2, Urine Mucus (Auto) SMALL, Urine Sperm (Auto ) , Urine Random Osmolality 297L, Urine Random Sodium < 10, Urine Random Potassium 22.8, Urine Random Chloride 17 12/23/16 06:43: Anion Gap 8, Glomerular Filtration Rate 40.6, Blood Urea Nitrogen 23H, Creatinine 1.37H, Sodium Level 129L, Potassium Level 4.2, Chloride Level 97L, Carbon Dioxide Level 24, Calcium Level 7.9L, Magnesium Level 1.9 CBC/BMP Laboratory Tests 12/23/16 06:43 Red Blood Count 2.91 L, Mean Corpuscular Volume 92.5, Mean Corpuscular Hemoglobin 31.8, Mean Corpuscular Hemoglobin Concent 34.3, Red Cell Distribution Width 13.1, Calcium Level 7.9 L Microbiology Microbiology 12/20/16 Urine Culture - Final, Complete MIGDALIA MAST MD Dec 23, 2016 11:44
--- NOTE | 2016-12-23 12:32 | CR ---
DATE OF CONSULTATION: 12/23/2016 This 71-year-old female was evaluated in consultation as requested by Dr. Navas on 12/23/2016 for right hydroureteronephrosis. She presented to hospital (12/20/2016) following a fall, resulting in a right distal fibular fracture. During hospitalization, the hospitalist noted rise in serum creatinine. The patient notes a 2-day history of daytime frequency. She denies sensations of incomplete bladder emptying. Prior to presentation, there is no history of voiding symptoms, gross hematuria, urinary tract infection, urolithiasis, flank pain, or constitutional symptoms. She was, however, constipated, not having a bowel movement for 5 days. PAST MEDICAL HISTORY: Is significant for hypertension, asthma, atrial fibrillation, cardiomegaly, sleep apnea, morbid obesity, and cervical cancer (total abdominal hysterectomy with bilateral salpingo-oophorectomy). REVIEW OF SYSTEMS: Is negative for diabetes mellitus, thyroid pathology, headaches, epilepsy, cerebrovascular accident (CVA), glaucoma, peptic ulcer disease, urolithiasis, cholelithiasis, or bloodborne diseases. CURRENT MEDICATIONS: Include: - Eliquis - Lyrica - Symbicort - Avapro - Corgard - DuoNeb - hydrochlorothiazide She is allergic to INTRAVENOUS CONTRAST. Socially, she is and has one child. She is a nonsmoker. Does not consume alcohol. FAMILY HISTORY: Is significant for myocardial infarction on the paternal side and breast adenocarcinoma on the maternal side. General examination revealed a comfortable individual. Her heart rate was 74, respiratory rate was 20, blood pressure was 112/61, and temperature was 99.4 degrees Fahrenheit. Palpation of the head and neck failed to reveal the presence of lymphadenopathy. Auscultation of the chest demonstrated diffuse expiratory wheezes with normal heart sounds. Examination of the back and abdomen were benign. She was morbidly obese. A cast is noted on her right lower extremity. A urinalysis (12/22/2016) demonstrated a pH of 5.0 but no evidence of leukocytes, nitrites, or microhematuria. Serum hematologic and biochemical indices determination (12/23/2016) demonstrated a hemoglobin of 9.2, leukocyte count of 8.5, and a creatinine of 1.4 (increased). Computed tomography of the abdomen and pelvis without intravenous contrast (12/23/2016) demonstrated right hydroureteronephrosis (moderate), distended urinary bladder, a right kidney 3 mm nonobstructing calculus, and a normal left kidney. Jay catheter insertion was requested by urology. Greater than 1200 mL of clear urine drained. The urine specimen for culture and sensitivity was obtained. ASSESSMENT: 1. Urinary retention. 2. Right hydroureteronephrosis. 3. Acute renal failure. 4. Right fibular fracture. 5. Hypertension. 6. Asthma. 7. Atrial fibrillation. 8. Cardiomegaly. 9. Sleep apnea. 10. Morbid obesity. 11. Anticoagulation therapy. PLAN: The above findings were discussed with the patient, nursing staff, and hospitalist. Jay catheter straight drainage will be maintained. The urine specimen for culture and sensitivity was obtained. Serial creatinine determinations and renal ultrasonography are recommended. Should these not improve, consideration for cystoscopy with right double J stent insertion will be given. Should these values improve, a mercaptoacetyltriglycerine (MAG) 3 renography with Lasix will be obtained. Consideration for urodynamics evaluation for bladder function as an outpatient with urology will be given. Should surgical intervention be required, cardiac clearance is appropriate with discontinuation of anticoagulation. Should you require additional information, please do not hesitate to contact me. Thanking you for the confidence of your referral. Sincerely, Bryce
[2016-12-23 14:00] VITALS: BP 104/52
[2016-12-23] MEDS: HEPARIN SOD (PORCINE) 5000 UNITS/ML VIAL SQ SCH ×2 (14:57→20:16)
--- NOTE | 2016-12-23 15:49 | IPN ---
DATE: 12/23/2016 Patient seen and examined. No acute events overnight. Status post orthopedic surgery yesterday. Denies any chest pain, pressure, or discomfort. Denies any fevers or chills. VITAL SIGNS: Temperature 99.4, pulse 74, respirations 16, blood pressure 112/61, pulse oximetry 98% on 1 liter. LABORATORY DATA: WBC 8.5, hemoglobin and hematocrit 9.2/26.9, platelets 173. Chemistry: Sodium 129, potassium 4.2, chloride 97, bicarbonate 24, BUN 23, creatinine 1.37. Ultrasound of the kidney shows moderate right-sided hydroureteronephrosis, distended urinary bladder. Left kidney not visualized. PHYSICAL EXAMINATION: GENERAL: Patient obese. Alert and oriented times three in no acute distress. HEENT: Normocephalic, atraumatic. PULMONARY: Bilaterally clear to auscultation. CARDIAC: Regular rate and rhythm. Normal S1, S2. ABDOMEN: Soft and nontender. Positive bowel sounds. EXTREMITIES: Cast in place. No significant pain. Clean, dry, and intact. BACK: No costovertebral angle (CVA) tenderness. ASSESSMENT AND PLAN: This is a 71-year-old patient with underlying medical history of obesity, asthma, hypertension, atrial fibrillation, on anticoagulation with Eliquis at home, admitted status post mechanical fall with unstable right ankle fracture. 1. Mechanical fall with unstable right ankle fracture. Patient status post OR. Orthopedics has been consulted. X-ray appreciated. Pain regimen and bowel regimen was prescribed. Will restart Eliquis tomorrow. Heparin subcutaneous today for deep vein thrombosis (DVT) prophylaxis. Bowel regimen as prescribed. 2. Acute kidney injury (KATIA), likely secondary to obstructive uropathy. Jay catheter in place. Ultrasound and CT appreciated. Intravenous (IV) fluids in it given. Withholding angiotensin receptor blockers (ARBs). No nonsteroidal anti-inflammatory drugs (NSAIDs). Urology has been consulted. Flomax has been prescribed. Followup BUN and creatinine. Will reorder ultrasound tomorrow to assess. Withholding Eliquis given possibility of potential urological procedure. 3. Hypertension. Continue nadolol, withholding Avapro, triamterene, and hydrochlorothiazide. Received IV fluids. Patient with elevated creatinine. 4. Asthma. Continue Symbicort, Singulair, nebulizer treatment. 5. Vitamin D deficiency. Supplementation continued. 6. Questionable obstructive sleep apnea. Outpatient followup. Obstructive sleep apnea (ANTONY) protocol. 7. Morbid obesity complicating care. 8. DVT prophylaxis. Heparin subcutaneous until restarting Eliquis tomorrow. DISPOSITION: Pending urological workup.
[2016-12-23] MEDS: MONTELUKAST 10 MG TAB PO SCH (19:57)
[2016-12-23] MEDS: TAMSULOSIN 0.4 MG CAP PO SCH (19:57)
[2016-12-23] MEDS: MIRALAX *UNIT DOSE* 17GM PACKET PO SCH (19:58)
[2016-12-23 22:00] VITALS: BP 121/51
[2016-12-24] MEDS: IPRATROPIUM 0.5MG/ALBUTEROL 2.5MG INH SOL UD 3ML (DUONEB)(J7620) NEB SCH ×4 (02:00→20:00)
[2016-12-24] MEDS: PERCOCET 5MG/325MG TAB PO PRN ×4 (02:15→21:00)
[2016-12-24] MEDS: HEPARIN SOD (PORCINE) 5000 UNITS/ML VIAL SQ SCH (05:19)
[2016-12-24 06:00] VITALS: BP 116/58
[2016-12-24 06:45] LABS: MEAN CORPUSCULAR HEMOGLOBIN 31.9 pg (27.0-33.0); MEAN CORPUSCULAR HGB CONC 35.2 g/dl (32.0-36.5); MEAN CORPUSCULAR VOLUME 90.6 fl (80.0-96.0); RED CELL DISTRIBUTION WIDTH 13.2 % (11.5-14.5); WHITE BLOOD COUNT 5.9 K/mm3 (4.0-10.0)
[2016-12-24 07:02] LABS: CALCIUM LEVEL 7.7 MG/DL (8.8-10.2); CREATININE FOR GFR 1.05 MG/DL (0.55-1.02); GLOMERULAR FILTRATION RATE 55.2 (>39); MAGNESIUM LEVEL 1.9 MG/DL (1.8-2.4)
[2016-12-24] MEDS: SYMBICORT 160/4.5MCG INHALER 6GM INH SCH ×2 (07:26→20:27)
[2016-12-24] MEDS: NADOLOL 20MG TABLET PO SCH (07:37)
[2016-12-24] MEDS: PREGABALIN 50 MG CAP (LYRICA) PO SCH ×2 (07:37→21:00)
[2016-12-24] MEDS: MIRALAX *UNIT DOSE* 17GM PACKET PO SCH ×2 (07:37→21:00)
[2016-12-24] MEDS: ASCORBIC ACID 500 MG TAB PO SCH ×2 (07:38→21:00)
[2016-12-24] MEDS: SENOKOT S TAB PO SCH ×2 (07:38→21:04)
[2016-12-24] MEDS: VITAMIN D 1,000 INTERNATIONAL UNITS TABLET PO SCH (07:38)
[2016-12-24] MEDS ORDERED: MAGNESIUM CITRATE 300 ML BTL PO ONE (09:00)
[2016-12-24] MEDS ORDERED: APIXABAN 5 MG TAB (ELIQUIS) PO SCH (09:00)
--- NOTE | 2016-12-24 09:48 | REP ---
Clinical: Flank pain. Hydronephrosis. Technique: Real time beard scale ultrasound examination using curved array transducer. Findings: The bilateral kidneys are relatively normal in contour, size, echogenicity, and reniform shape without hydronephrosis, obvious nephrolithiasis, cystic or mass lesion. In comparison with the recent CT dated 12/23/2016, the right kidney demonstrates no obvious hydronephrosis and this may have been transient. Right kidney measures 10.3 x 5.1 x 4.9 cm. Left kidney measures 11.5 x 5.3 x 3.4 cm. The bladder is collapsed and Jay catheter is noted. Incidental cholelithiasis noted. Impression: 1. Normal appearance the bilateral kidneys without nephrolithiasis or hydronephrosis. 2. Cholelithiasis. Signed by Selvin Braxton MD 12/24/2016 09:40 A
[2016-12-24 10:26] LABS: OSMOLALITY URINE 261 MOSM/KG (500-800)
[2016-12-24 10:28] LABS: CALCIUM LEVEL 7.9 MG/DL (8.8-10.2); CREATININE FOR GFR 1.05 MG/DL (0.55-1.02); GLOMERULAR FILTRATION RATE 55.2 (>39); POTASSIUM SERUM 4.1 MEQ/L (3.5-5.1)
--- NOTE | 2016-12-24 10:52 | IPNPDOC ---
Assessment/Plan Date Seen The patient was seen on 12/24/16. Plan/VTE VTE Prophylaxis Ordered?: Yes Plan/Urinary Catheter Reason for insertion/continuin: Acute obstruct/retention Subjective Review oF Systems Chief Complaint The patient is a 71-year-old female admitted with a reason for visit of Closed Fracture Of Right Distal Fibula; HTN; AFIB; asthma; sleep apnea; morbid obesity ; cervical cancer (MAYTE/BSO)]. Urinary retention; ARF; right HUN. Centeno insertion (12/23/16) drained >1200cc clear urine. Urine clear. Constipation. Comfortable. 61, 18, 116/58, 97.7F. Abdo: Obese. Benign. Centeno: 400cc/3hr. Urine clear. (12/24/16) Hg 8.7, wbc 5.9, Cr 1.1. US (12/24/16) no HUN. Urine culture () pending. A: Above. HUN and ARF resolved with centeno. P: Centeno to [place]. SHAHEEN. Consider UDS as outpatient Urology. Decrease constipation. Objective Vital Signs/I&O Vital Signs Date Time Temp Pulse Resp B/P (MAP) Pulse Ox O2 Delivery O2 Flow Rate FiO2 12/24/16 08:11 18 12/24/16 07:41 Room Air 12/24/16 07:37 61 116/58 12/24/16 06:00 97.7 93 12/23/16 22:19 2.0 I&O- Last 24 Hours up to 6 AM 12/24/16 05:59 Intake Total 960 ml Output Total 1300 ml Balance -340 ml Laboratory Data Labs 24H Laboratory Tests 2 12/23/16 11:46: Urine Appearance HAZY, Urine Color YELLOW, Urine pH 5.0, Urine Specific [place] 1.013, Urine Protein NEGATIVE, Urine Glucose (UA) NEGATIVE, Urine Ketones TRACEH , Urine Urobilinogen 0.2, Urine Bilirubin NEGATIVE, Urine Leukocyte Esterase NEGATIVE, Urine Blood 2+H, Urine Nitrite NEGATIVE, Urine WBC (Auto) 0, Urine RBC (Auto) 23H, Urine Hyaline Casts (Auto) 0, Urine Bacteria (Auto) NEGATIVE, Urine Squamous Epithelial Cells 0, Urine Mucus (Auto) SMALL, Urine Sperm (Auto) 12/24/16 06:22: Anion Gap 6L, Glomerular Filtration Rate 55.2, Blood Urea Nitrogen 25H, Creatinine 1.05H, Sodium Level 120#L, Potassium Level 4.0, Chloride Level 91L, Carbon Dioxide Level 23, Calcium Level 7.7L, Magnesium Level 1.9 12/24/16 09:27: Urine Random Osmolality 261L, Urine Random Sodium 10, Urine Random Potassium 5.1 , Urine Random Chloride < 10 12/24/16 09:52: Anion Gap 10, Glomerular Filtration Rate 55.2, Blood Urea Nitrogen 23H, Creatinine 1.05H, Sodium Level 126L, Potassium Level 4.1, Chloride Level 91L, Carbon Dioxide Level 25, Calcium Level 7.9L CBC/BMP Laboratory Tests 12/24/16 06:22 Red Blood Count 2.73 L, Mean Corpuscular Volume 90.6, Mean Corpuscular Hemoglobin 31.9, Mean Corpuscular Hemoglobin Concent 35.2, Red Cell Distribution Width 13.2, Calcium Level 7.7 L 12/24/16 09:52 Calcium Level 7.9 L Microbiology Microbiology 12/23/16 Urine Culture, Received Pending 12/20/16 Urine Culture - Final, Complete MIGDALIA MAST MD Dec 24, 2016 10:52
--- NOTE | 2016-12-24 10:55 | IPN ---
DATE: 12/24/2016 Patient seen and examined. Asymptomatic overnight. Has a Jay catheter putting out urine. Denies any chest pain, pressure, or discomfort. Denies any flank pain. Denies any abdominal pain. Continues to report constipation. Magnesium citrate has been ordered by the orthopedic team. VITAL SIGNS: Temperature 97.7, pulse 61, respirations 18, blood pressure 116/58, pulse oximetry 93% on room air. LABORATORY DATA: WBC 8.5.9hemoglobin and hematocrit 9.8.7624,7platelets [id number] Chemistry: Sodium 1120 potassium 4. chloride 971 bicarbonate 243 BUN 235 creatinine 1.305 PHYSICAL EXAMINATION: GENERAL: Patient obese. Alert and oriented times three in no acute distress. HEENT: Normocephalic, atraumatic. PULMONARY: Bilaterally clear to auscultation. CARDIAC: Regular rate and rhythm. Normal S1, S2. ABDOMEN: Soft and nontender. Positive bowel sounds. EXTREMITIES: Cast in place. No significant pain. BACK: No CVA tenderness. ASSESSMENT AND PLAN: This is a 71-year-old female patient with underlying medical history of obesity, asthma, hypertension, atrial fibrillation, on anticoagulation with Eliquis at home, admitted status post mechanical fall with unstable right ankle fracture. 1. Mechanical fall with unstable right ankle fracture status post OR. Orthopedics has been consulted. Pain regimen and bowel regimen was prescribed. Restarting Eliquis for deep vein thrombosis (DVT) prophylaxis. 2. Acute kidney injury (KATIA), possibly secondary to obstructive uropathy. Jay catheter in place. Ultrasound and CT appreciated. Intravenous (IV) fluids initially given, withholding ARBs. No NSAIDs. Urology has been consulted. Jay in place. BUN and creatinine improving. Repeat ultrasound shows resolution of hydro. Restarting Eliquis. 3. Hyponatremia. Likely secondary to polydipsia. Urine and electrolytes have been ordered. Will monitor closely. Versus postobstructive diuresis. 4. Hypertension. Continue nadolol, withholding Avapro, triamterene, and hydrochlorothiazide. Received IV fluids. 5. Asthma. Continue Symbicort, Singulair, nebulizer treatment. 6. Vitamin D deficiency. Supplementation continues. 7. Constipation. Bowel regimen as ordered. 8. Questionable obstructive sleep apnea. Outpatient followup. ANTONY protocol. 9. Morbid obesity complicating care. 10. DVT prophylaxis. Restarting Eliquis. DISPOSITION: Pending physical therapy, resolution of hyponatremia.
[2016-12-24 14:00] VITALS: BP 119/59
[2016-12-24] MEDS: MONTELUKAST 10 MG TAB PO SCH (21:00)
[2016-12-24] MEDS: APIXABAN 5 MG TAB (ELIQUIS) PO SCH (21:00)
[2016-12-24] MEDS: TAMSULOSIN 0.4 MG CAP PO SCH (21:00)
[2016-12-24 22:00] VITALS: BP 114/56
[2016-12-25] MEDS: IPRATROPIUM 0.5MG/ALBUTEROL 2.5MG INH SOL UD 3ML (DUONEB)(J7620) NEB SCH ×3 (02:00→13:12)
[2016-12-25 06:00] VITALS: BP 103/59
--- NOTE | 2016-12-25 06:13 | RO ---
DATE OF PROCEDURE: 12/24/2016 PREOPERATIVE DIAGNOSIS: Right ankle fracture dislocation. POSTOPERATIVE DIAGNOSIS: Right ankle fracture dislocation. PROCEDURE PERFORMED: Open reduction internal fixation of right ankle fracture dislocation by fixation of fibula/lateral malleolus. SURGEON: Dr. Jovany Szymanski. PAPER SALES MANAGER: ANESTHESIA: Spinal. ESTIMATED BLOOD LOSS: Less than 50 mL replaced with crystalloid. No complications. No tourniquet inflated INDICATIONS: Right ankle fracture dislocation. Consent reviewed in detail with the patient including rina discussion of the pathology involved, the procedure proposed, alternatives including doing nothing. I saw the patient in the preoperative holding area and reviewed the consent briefly with the patient and her family as the patient was initially seen by one of our other orthopedic surgeons prior to being cleared. COMPONENTS USED: Include a Synthes/AO seven hole one-third tubular plate and the appropriate cortical and cancellous screws. OPERATIVE COURSE: Identified in holding area, site side verified, brought to the operating room. Once spinal anesthesia was administered, position with a bump under the right hip for exposure of the right ankle. Next, sterilely prepped, draped in usual fashion. No tourniquet was inflated for this case. Next, time-out was accomplished. Incision outlined with a marking pen based on bony landmarks, infiltrated with 0.25% Marcaine with epinephrine and made with a 10 blade knife developed down through skin and subcuticular tissues. Soft tissue was protected. Fibula was identified, fracture was identified. Fracture hematoma was extensive and evacuated. Next, once the fracture site was exposed, fracture reduction clamps were utilized to reduce the fracture. Next, AP lag screw was drilled and placed using a 3.5 shaft screw tapped before placing screw. Next, fracture reduction clamp was now able to be removed. Fracture remained stable. Selected seven hole one-third tubular plate was placed on the lateral malleolus, contoured distal tip of the plate. I placed the remaining cancellous screws distally and cortical screws proximally. Next, during plate placement, I utilized x-ray fluoroscopy to verify ankle alignment and plate placement. Next, once the plate was secure, the wound was irrigated, closed with interrupted stitch followed by rick. Sterile dressing was applied. Final AP and mortise imaging studies were obtained. A short-leg plaster cast was applied. The patient was then moved to the recovery room in good condition at the conclusion of procedure. For further details, please refer to the medical record.
[2016-12-25 06:35] LABS: MEAN CORPUSCULAR HEMOGLOBIN 31.6 pg (27.0-33.0); MEAN CORPUSCULAR HGB CONC 34.4 g/dl (32.0-36.5); MEAN CORPUSCULAR VOLUME 91.8 fl (80.0-96.0); RED CELL DISTRIBUTION WIDTH 13.4 % (11.5-14.5); WHITE BLOOD COUNT 4.6 K/mm3 (4.0-10.0)
[2016-12-25 06:42] LABS: ANION GAP 7 MEQ/L (8-16); BLOOD UREA NITROGEN 19 MG/DL (7-18); CALCIUM LEVEL 8.4 MG/DL (8.8-10.2); CARBON DIOXIDE LEVEL 26 MEQ/L (21-32); CHLORIDE LEVEL 96 MEQ/L (98-107); CREATININE FOR GFR 0.76 MG/DL (0.55-1.02); GLOMERULAR FILTRATION RATE > 60.0 (>39); GLUCOSE, FASTING 88 MG/DL (83-110); MAGNESIUM LEVEL 2.3 MG/DL (1.8-2.4); POTASSIUM SERUM 4.5 MEQ/L (3.5-5.1); SODIUM LEVEL 129 MEQ/L (136-145)
[2016-12-25] MEDS: SYMBICORT 160/4.5MCG INHALER 6GM INH SCH (07:12)
[2016-12-25] MEDS: SENOKOT S TAB PO SCH (09:00)
[2016-12-25] MEDS: PREGABALIN 50 MG CAP (LYRICA) PO SCH (09:43)
[2016-12-25] MEDS: MIRALAX *UNIT DOSE* 17GM PACKET PO SCH (09:43)
[2016-12-25] MEDS: APIXABAN 5 MG TAB (ELIQUIS) PO SCH (09:44)
[2016-12-25] MEDS: ASCORBIC ACID 500 MG TAB PO SCH (09:44)
[2016-12-25] MEDS: VITAMIN D 1,000 INTERNATIONAL UNITS TABLET PO SCH (09:44)
[2016-12-25 09:45] VITALS: BP 120/60
[2016-12-25] MEDS: NADOLOL 20MG TABLET PO SCH (09:45)
[2016-12-25 10:03] LABS: CORTISOL AM 18.8 UG/DL (4.3-22.4)
[2016-12-25] MEDS ORDERED: FLOM5CAP PO (10:29)
[2016-12-25] MEDS ORDERED: SENN1TAB2 PO (10:29)
[2016-12-25 14:00] VITALS: BP 136/64
[2016-12-25] MEDS: PERCOCET 5MG/325MG TAB PO PRN (15:23)
--- NOTE | 2016-12-26 10:45 | DSES ---
DATE OF ADMISSION: 12/20/2016 DATE OF DISCHARGE: 12/25/2016 PRIMARY CARE PROVIDER: Carol Coffey ORTHOPEDIC SURGEON: Dr. Jovany Szymanski UROLOGIST: Dr. Bryce Pickett. Case was discussed with Dr. Goff. FINAL DIAGNOSES: 1. Mechanical fall with unstable right ankle fracture, status post open reduction, internal fixation (ORIF). 2. Acute kidney injury secondary to obstructive uropathy. 3. Constipation. 4. Hyponatremia. 5. Hypertension. 6. Asthma. 7. Vitamin D deficiency. 8. Questionable sleep apnea. 9. Morbid obesity complicating care. HISTORY OF PRESENT ILLNESS: This is a 71-year-old female patient with underlying medical history of obesity, atrial fibrillation on Eliquis, asthma, hypertension, questionable obstructive sleep apnea. The patient was at a libertarian the night prior to admission, drank a lot of beer, and subsequently sustained a mechanical fall, stepped on a pothole and sprained her right ankle from standing height, resulting in pain and deformity, inability to bear weight. The patient did not seek medical attention immediately, presented to the emergency room in the morning after she could not bear weight. Denies any chest pain, head injury, loss of consciousness or shortness of breath. The patient stated that she has been on a low salt diet and has been drinking lots of alcoholic beer last night, about six beers. She only drinks occasionally, about once a month. Baseline ambulating without assistance, but limited due to asthma. Able to ambulate from the emergency room to the parking lot without any difficulty. Able to do housework chores. 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 Does not use continuous positive airway pressure (CPAP) or home oxygen. HOSPITALIZATION COURSE: The patient was admitted to the hospital. Orthopedics was consulted. The patient was placed on obstructive sleep apnea protocol. Hyponatremia workup was done. The patient's hyponatremia initially improved and patient went for surgery with open reduction, internal fixation. Following the surgery, the patient's kidney function has worsened. Ultrasound shows distended urinary bladder with right sided hydroureter. Subsequently, urology was consulted. Jay was placed. Repeat ultrasound showed improvement with resolution of kidney function and also resolution of hyponatremia. The case was further discussed with Dr. Goff. As per Dr. Goff, the patient should keep the Jay during this admission and followup with urology in 1 week for a voiding trial. If a voiding trial is unsuccessful, we will consider further urodynamic testing. The patient currently is comfortable, in no acute distress. No shortness of breath. No abdominal pain. Ready for further followup with acute rehabilitation team in Physical Medicine and Rehabilitation (PM R). Screening was done. The patient was accepted to acute rehabilitation. Subsequently, the patient was discharged from the hospitalist service to acute rehabilitation for further care. VITAL SIGNS: Temperature 98, pulse 67, respirations 18, blood pressure 136/64, pulse oximetry 97% on room air. GENERAL: The patient is morbidly obese. In no acute distress. HEENT: Normocephalic, atraumatic. PULMONARY: Distant breath sounds. No rales, wheeze or rhonchi. CARDIAC: Regular rate and rhythm. Normal S1, S2. ABDOMEN: Soft, nontender. Positive bowel sounds. EXTREMITIES: Cast in place. No significant pain. LABORATORY DATA: WBC 4.6, hemoglobin and hematocrit 8.5/24.8, platelets 170. Chemistry: Sodium 129, potassium 4.5, chloride 96, bicarbonate 26, BUN 19, creatinine 0.76. DISCHARGE MEDICATIONS: - Flomax 0.4 mg by mouth at night - Senna Plus one tablet by mouth twice a day - acetaminophen 650 mg by mouth every four hours as needed - Ventolin inhaler four times a day as needed - DuoNeb four times a day as needed - Eliquis 5 mg by mouth twice a day - Symbicort 160/4.5 inhalation twice a day - montelukast 10 mg by mouth at night - Nadolol 40 mg by mouth daily - vitamin D 1000 units by mouth daily DISCHARGE INSTRUCTIONS: The patient is instructed to followup with PM R with Dr. Snowden for further care. Further pain regimen is as per Dr. Snowden. Followup with primary care provider 7 days after discharge and urologist 7 days after discharge for voiding trial, as well as urodynamic studies. Followup with orthopedics after discharge. Further care as per PM R.
== END 2016-12-25 15:50 | DRG 493 ==
LOC: EDBD 03:29 → M ED 03:29 → M ED INP 09:54 → M MS5PR 14:30
PROVIDERS: ADMIT Hospitalist; ATTEND Hospitalist
PROC: 0QSJ04Z Reposition Right Fibula with Internal Fixation Device, Open Approach (ICD-10-PCS; principal; 2016-12-24)
PROC: 0QC Lower Bones, Extirpation (ICD-10-PCS; 2016-12-24)
DX: S82.61XA Displaced fracture of lateral malleolus of right fibula, initial encounter for closed fracture (principal); Z68.42 Body mass index [BMI] 45.0-49.9, adult; N17.9 Acute kidney failure, unspecified; N13.0 Hydronephrosis with ureteropelvic junction obstruction; E87.1 Hypo-osmolality and hyponatremia; I10 Essential (primary) hypertension; E66.01 Morbid (severe) obesity due to excess calories; J45.909 Unspecified asthma, uncomplicated; R33.9 Retention of urine, unspecified; I48.91 Unspecified atrial fibrillation; K59.00 Constipation, unspecified; E55.9 Vitamin D deficiency, unspecified; G47.33 Obstructive sleep apnea (adult) (pediatric); Z85.41 Personal history of malignant neoplasm of cervix uteri; Z90.710 Acquired absence of both cervix and uterus; Z79.01 Long term (current) use of anticoagulants; Z79.899 Other long term (current) drug therapy; Z79.51 Long term (current) use of inhaled steroids; Z91.041 Radiographic dye allergy status; Z72.0 Tobacco use

== ENCOUNTER 2016-12-25 15:18 | Inpatient (IN) | payer MEDICARE, OTHER ==
[~2016-12-25] VITALS: Ht 154.9 cm; Wt 133.0 kg
[~2016-12-25 15:18] MED LIST changes: +ALBU17IN INH; +ELIQ5TAB PO; +FLOM5CAP PO; +IPRASOL4 INH; +IRBE300T10 PO; +MONT10TA2 PO; +NADO40TA PO; +SENN1TAB2 PO; +SYMB16INH INH; +TRIA37.5 PO; +TYLE325T5 PO; +VITAD1000T PO
[2016-12-25 16:30] VITALS: BP 145/64
[2016-12-25] MEDS ORDERED: FLEET ENEMA PR PRN (16:30)
[2016-12-25] MEDS ORDERED: oxyCODONE 5MG TAB PO PRN ×2 (16:30)
[2016-12-25] MEDS ORDERED: MOM 30ML SUSPENSION UDC PO PRN (16:30)
[2016-12-25] MEDS ORDERED: MIRALAX *UNIT DOSE* 17GM PACKET PO PRN (16:30)
--- NOTE | 2016-12-25 17:47 | PMRNOTEPD ---
PMR Note H&P has been dictated on patient Nguyen Montoya who is admitted for rehabilitation of right fibular fracture status post open reduction internal fixation with debilitation related to morbid obesity, atherosclerotic cardiovascular disease including atrial fibrillation treated with Eliquis and hypertension. Her course from the fracture on the evening of December 19 as resulted in a moderate anemia and acute kidney injury which require further monitoring. Medicine and orthopedics have been consulted for this patient who is very motivated and should be able to participate in an benefit from acute intensive rehabilitation with physical and occupational therapy along with rehabilitation nursing and physiatry. H&P dictation number is [id number] admission today 12/25/16. WILIAM PRETTY MD Dec 25, 2016 17:47
[2016-12-25 20:00] VITALS: BP 153/66
[2016-12-25] MEDS: IPRATROPIUM 0.5MG/ALBUTEROL 2.5MG INH SOL UD 3ML (DUONEB)(J7620) NEB SCH (20:00)
[2016-12-25] MEDS: PREGABALIN 50 MG CAP (LYRICA) PO SCH (20:09)
[2016-12-25] MEDS: MONTELUKAST 10 MG TAB PO SCH (20:09)
[2016-12-25] MEDS: TAMSULOSIN 0.4 MG CAP PO SCH (20:09)
[2016-12-25] MEDS: APIXABAN 5 MG TAB (ELIQUIS) PO SCH (20:09)
[2016-12-25] MEDS: ASCORBIC ACID 500 MG TAB PO SCH (20:09)
[2016-12-25] MEDS: SENOKOT S TAB PO SCH (20:09)
[2016-12-25] MEDS: SYMBICORT 160/4.5MCG INHALER 6GM INH SCH (20:28)
--- NOTE | 2016-12-25 23:48 | PMRHPE ---
DATE OF ADMISSION: 12/25/2016 REASON FOR ADMISSION: Rehabilitation of right ankle fracture, status post open reduction internal fixation. 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 On 12/20/2016, the patient stepped in a pot hole with her right lower extremity trying to guard and protect her left knee which was hurting and twisted her ankle resulting in a distal fibular fracture of the right ankle. The patient had been participating in a family alliance party and had been drinking beer during this. She was seen at [facility] and found to have a distal right fibular fracture. PAST MEDICAL HISTORY: Includes: 1. Atherosclerotic cardiovascular disease with atrial fibrillation and hypertension. 2. Asthma. 3. History of cervical cancer status post total abdominal hysterectomy and bilateral salpingo-oophorectomy. PAST SURGICAL HISTORY: Besides the hysterectomy includes back surgery. FAMILY HISTORY: Includes mother with breast cancer and dying at age 63 and father with atherosclerotic cardiovascular disease and multiple pack smoking history, dying of a myocardial infarction at age 55. SOCIAL HISTORY: The patient lives with her . 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 She does not smoke. Reports only drinking alcoholic beverages on occasion, about once a month, but had been drinking excessively on the 4th when she stepped in a pot hole and fell. No illicit drug use. ALLERGIES: Allergic to CONTRAST DYE OR MEDIA. MEDICATIONS ON ADMISSION: - Eliquis 5 mg twice a day for the atrial fibrillation and clot prevention - Flomax 0.4 mg by mouth nightly for urinary retention - Senokot S one by mouth twice a day - MiraLAX one packet twice a day - ascorbic acid 500 mg twice a day for urine prophylaxis and also to assist bone healing - Lyrica 50 mg by mouth twice a day - Tylenol 650 mg by mouth every 6 hours for pain or fever - oxycodone 5 mg every 4 hours as needed for moderate pain, 10 mg by mouth every 4 hours as needed for severe pain - Singulair 10 mg by mouth nightly for asthma - DuoNeb every 6 hours on respiratory schedule for asthma and then DuoNeb every 2 hours as needed for shortness of breath and wheezing - Symbicort 160/4.5 two puffs twice a day for asthma - Corgard 40 mg by mouth daily for heart rate control and blood pressure - vitamin D 1000 international units daily REVIEW OF SYSTEMS: Patient with right lower extremity and left knee pain; otherwise negative 10-point review of systems. PHYSICAL EXAMINATION: The patient is alert and well oriented, very pleasant 71-year-old white female who looks about stated age. She is morbidly obese weighing 139 kg. She does have difficulty being able to lift her weight using her upper extremities. Vital Signs: Temperature 98.0, blood pressure 134/64, pulse 67, respirations 16 and pulse oximetry 97% on room air. HEENT: Normocephalic, atraumatic. Pupils are equal, round and reactive to light and accommodation. Extraocular motions are intact. Hearing is grossly intact. No lymph nodes found around the ears or in the neck. Neck is supple. Thyroid is palpable, of normal texture without nodule and normal size without goiter. No carotid bruits are heard. Lungs are clear in all woods to auscultation. Coronary shows a regular rate and rhythm with normal S1, S2, without S3, S4, murmurs or rubs. The patient is not in atrial fibrillation at this time. Pulses are 2+ bilateral radial pulses. They are regular. Capillary perfusion in the fingernails is good. Skin color in the left lower extremity, right toes and bilateral upper extremities is good. Extremities: Bilaterally upper extremity with functional range of motion for age. Left lower extremity with functional range of motion for age and some crepitus in the knee on movement. Right lower extremity with a short-leg cast extending from almost the tibial tuberosity down to the toes, supporting the ankle on the surgery. There are no signs of drainage into the cast wall, any type of weeping from the surgery. Hip motion goes from full extension to 90 degrees of flexion. Abduction and adduction were not tested or observed. Neurologically, the patient is alert and oriented times four. Speech is clear, coherent and appropriate. Affect is pleasant and cooperative. Memory is intact. Motor shows good plus bilateral upper extremity strength and proprioception and control. Left lower extremity with good plus to full strength and proprioception and control. Light touch and vibration are intact in bilateral upper and lower extremities, except not tested under the cast and mild decrease in vibratory sensation in the right knee region. X-ray data shows good reduction of the right distal fibula from the surgical plate and screws. Laboratory data shows patient with moderate anemia with hemoglobin of 8.5 and hematocrit of 24.8. Chemistry shows hyponatremia with a sodium of 129, normal potassium of 4.5, low chloride at 96, normal bicarbonate at 26 and mild elevation of BUN at 19. This has been a pattern of getting better in the last couple of days. Creatinine has normalized on today's lab from a high of 1.40 on 12/22/2016 to now being 0.76. Magnesium is normal at 2.3 and calcium is low at 8.4. This morning's fasting blood sugar was 88 and normal. ASSESSMENT AND PLAN: 1. Rehabilitation of right ankle fracture causing debilitation secondary to the morbid obesity and inability to lift and transfer using crutches and a walker at this time to offload right lower extremity, which is restricted touch-down weightbearing. I do feel the patient is able to participate in and benefit from 3 hours a day of physical and occupational therapy to improve strength and first learn wheelchair mobility and activities of daily living (ADLs). Her is putting in a ramp for accessibility and patient able to function first floor at home. However, we will also proceed to working on transfer, mobility and ADLs using walker while she is here as well and try to increase strength in bilateral upper extremities and work on balance so that she can better locomote safely with her left lower extremity and upper extremities for support. She may be a candidate for a kneeling skateboard for mobility. We will assess these things during her admission. I am anticipating patient will require 7-10 days of this musculoskeletal rehab. Her overall condition, though, is complicated by the morbid obesity as well as the acute kidney injury, including the hyponatremia and her moderate anemia. 2. Acute kidney injury. Will go ahead and monitor her electrolytes and renal function, which are improving. Consult to medicine to help with this and other medical problems has been sent. 3. Moderate anemia. Will consider using supplements such as vitamins and iron to facilitate her recovery. 4. Atherosclerotic cardiovascular disease, including hypertension and atrial fibrillation. The patient will remain on the Eliquis to prevent clots, which will also help with deep vein thrombosis (DVT) prophylaxis, as well as Nadolol for heart rate and blood pressure control. 5. Asthma. Will continue with Singulair and DuoNebs. 6. Pain management. Will use Tylenol as base and then eliminate Percocet and use oxycodone 5 and 10 for moderate and severe pain, respectively. 7. Urinary retention. The patient will continue on the Flomax 0.4 mg daily for that. Orthopedics has been consulted to participate in care as appropriate and also to send the followup they wish for the patient. POST-ADMISSION PHYSICIAN EVALUATION: Patient is consistent with preadmission screening and is motivated to and capable of participating in 3 hours per day of acute intensive rehabilitation. It is important that she also be followed for the multiple medical problems noted above by physiatry, rehabilitation nursing and medicine consult. Do anticipate patient being discharged to home with family in 7-10 days and having a good prognosis. Time spent on chart review, history and physical and documentation is 70 minutes. PHILL
[2016-12-26] MEDS: ACETAMINOPHEN TAB 650MG DOSE (2X325MG) PO PRN ×2 (01:16→08:27)
[2016-12-26] MEDS: IPRATROPIUM 0.5MG/ALBUTEROL 2.5MG INH SOL UD 3ML (DUONEB)(J7620) NEB SCH ×4 (02:00→20:00)
[2016-12-26 06:00] VITALS: BP 119/59
[2016-12-26 06:29] LABS: BASO % 0.3 % (0.0-1.0); EOS # 0.2 K/mm3 (0.0-0.50); EOS % 3.1 % (0.0-3.0); LARGE UNSTAINED CELL # 0.1 K/mm3 (0.0-0.4); LARGE UNSTAINED CELL % 2.2 % (0.0-4.0); LYMPH # 1.1 K/mm3 (1.5-4.5); LYMPH % 18.7 % (24.0-44.0); MEAN CORPUSCULAR HEMOGLOBIN 32.9 pg (27.0-33.0); MEAN CORPUSCULAR HGB CONC 35.1 g/dl (32.0-36.5); MEAN CORPUSCULAR VOLUME 93.6 fl (80.0-96.0); MONO # 0.3 K/mm3 (0.0-0.8); MONO % 6.4 % (0.0-5.0); NEUTROPHILS # 3.7 K/mm3 (1.8-7.7); NEUTROPHILS % 69.2 % (36.0-66.0); PLATELET COUNT, AUTOMATED 203 k/mm3 (150-450); RED CELL DISTRIBUTION WIDTH 13.6 % (11.5-14.5); WHITE BLOOD COUNT 5.3 K/mm3 (4.0-10.0)
[2016-12-26 06:47] LABS: ALBUMIN 2.5 GM/DL (3.2-5.2); ALBUMIN/GLOBULIN RATIO 0.71 (1.00-1.93); ALKALINE PHOSPHATASE 57 U/L (45-117); ALT/SGPT 14 U/L (12-78); ANION GAP 7 MEQ/L (8-16); AST/SGOT 15 U/L (15-37); BILIRUBIN,TOTAL 0.8 MG/DL (0.2-1.0); BLOOD UREA NITROGEN 13 MG/DL (7-18); CALCIUM LEVEL 8.8 MG/DL (8.8-10.2); CARBON DIOXIDE LEVEL 28 MEQ/L (21-32); CHLORIDE LEVEL 99 MEQ/L (98-107); CREATININE FOR GFR 0.66 MG/DL (0.55-1.02); GLOMERULAR FILTRATION RATE > 60.0 (>39); GLUCOSE, FASTING 97 MG/DL (83-110); POTASSIUM SERUM 4.5 MEQ/L (3.5-5.1); SODIUM LEVEL 134 MEQ/L (136-145)
[2016-12-26] MEDS: SYMBICORT 160/4.5MCG INHALER 6GM INH SCH ×2 (07:07→21:08)
[2016-12-26] MEDS: SENOKOT S TAB PO SCH ×2 (08:27→20:50)
[2016-12-26] MEDS: VITAMIN D 1,000 INTERNATIONAL UNITS TABLET PO SCH (08:27)
[2016-12-26] MEDS: PREGABALIN 50 MG CAP (LYRICA) PO SCH ×2 (08:27→20:50)
[2016-12-26] MEDS: ASCORBIC ACID 500 MG TAB PO SCH ×2 (08:27→20:50)
[2016-12-26] MEDS: APIXABAN 5 MG TAB (ELIQUIS) PO SCH ×2 (08:27→20:50)
[2016-12-26] MEDS: NADOLOL 20MG TABLET PO SCH (08:28)
--- NOTE | 2016-12-26 10:57 | IPNPDOC ---
Date Seen The patient was seen on 12/26/16. Progress Note REASON FOR CONSULTATION: Medical Management ATTENDING: Dr. Carlos Scruggs HPI: 71year old F who experienced mechanical fall 12/19/16 sustaining Rt ankle fracture, S/P ORIF as per Orthopedics 12/24/16. Pt was transferred to the care of AVERY Garcia 12/25/16. No acute medical complaints today. Denies any fevers, chills, weakness, fatigue, Headache, Chest Pain, Shortness of breath, cough, palpitations, abdominal pain, N/V/D or changes in bowel or bladder habits. PMHx: HTN Asthma Atrial fibrillation H/O cervical Ca M Obesity. BMI 57.9 PSHX: Mechanical fall/Rt ankle fracture/ORIF 12/24/16 hysterectomy back surgery PE: GEN: 71yoF, appears stated age. Well-nourished, well developed. No acute distress. Alert and oriented x 3. Pleasant, interactive. HEENT: Normocephalic, atraumatic. Pupils are equal, round, and reactive to light. Extraocular movements are intact. No nystagmus appreciated. Sclera are nonicteric. Conjunctiva without injection. Nose midline. Nasal turbinates without bogginess. EACs both patent BL. TMs both visualized and beard with good cone of light, no bulging or erythema. No facial asymmetry. Moist mucous membranes. Dentition fair. Pharynx pink and moist, no cobblestoning. Neck supple , trachea midline. No lymphadenopathy or thyromegaly appreciated. CHEST: Regular rate and rhythm, +S1, +S2 LUNGS: Clear to auscultation bilaterally. No wheezes, rales, or rhonchi. Breathing appears symmetric and easy. Patient is speaking in full sentences. No accessory muscle use. ABD: Round, soft, non-tender, non-distended. +Bowel sounds throughout. No rebound or guarding. No costovertebral angle tenderness. Jay catheter. EXT: No lower extremity edema appreciated. cast RLE. SKIN: [place], dry, warm. Capillary refill <2sec. No rashes. NEURO: Alert and oriented x 3. Cranial nerves III-XII are intact. No focal deficits appreciated. CT A/P 12/23/16 1. Mild right-sided hydroureteronephrosis and distended bladder without obvious cause. Stable 3 mm nonobstructing right renal calculus. Normal appearance to the left kidney/ureter. 2. Colonic diverticulosis without acute diverticulitis. 3. Small focus of left basilar atelectasis/consolidation may warrant followup chest CT at 3 months A&P: 71year old F who experienced mechanical fall 12/19/16 sustaining Rt ankle fracture, S/P ORIF as per Orthopedics 12/24/16. Pt was transferred to the care of AVERY Garcia 12/25/16. 1. Mechanical fall 12/19/16/ Rt ankle fracture S/P ORIF as per Orthopedics . Mgmt as per Dr Sp VARELA. PT/OT as per Dr Snowden. Pain control as per Dr Snowden. Bowel care as per Dr Snowden. DVT prophylaxis. Pt on Eliquis. 2. Rt hydronephrosis CT 12/23/16. Urinary retention. Seen in consultation by Urology 12/23/16. Jay catheter in place. Flomax added. SCr returned to baseline. UC 12/20 and 12/23 neg. Renal U/S 12/24 unremarkable, no hydronephrosis. Plan for outpt F/U with Urology to consider Urodynamics studies. 3. Left basilar consolidation. CT 12/23/16. Recommendation for F/U CT 3 months. 4. HTN. BP controlled. HCTZ/Triamterene and Irbesartan on hold. Monitor. 5. Asthma. Ventolin prn, Nebs prn. Symbicort/Singulair. 6. A Fib. Rate control Nadolol daily. Eliquis anticoagulation. 7. H/O cervical Ca. 8. M Obesity. BMI 57.9. Complicates care. 9. Anemia. Hgb 9.1, trending upward. Monitor. CBC in AM. 10. Hyponatremia. Improved. Monitor. CMP in AM. VS, I&O, 24H, Fishbone Vital Signs/I&O Vital Signs Date Time Temp Pulse Resp B/P (MAP) Pulse Ox O2 Delivery O2 Flow Rate FiO2 12/26/16 08:28 79 119/59 12/26/16 06:00 98.0 18 95 Room Air I&O- Last 24 Hours up to 6 AM 12/26/16 06:00 Intake Total 480 ml Output Total 2170 ml Balance -1690 ml Laboratory Data 24H LABS Laboratory Tests 2 12/25/16 20:10: Urine Appearance CLEAR, Urine Color STRAW, Urine pH 6.0, Urine Specific [place] 1.003, Urine Protein NEGATIVE, Urine Glucose (UA) NEGATIVE, Urine Ketones NEGATIVE, Urine Urobilinogen 0.2, Urine Bilirubin NEGATIVE, Urine Leukocyte Esterase NEGATIVE, Urine Blood 1+H, Urine Nitrite NEGATIVE, Urine WBC (Auto) 2, Urine RBC (Auto) 0, Urine Hyaline Casts (Auto) 0, Urine Bacteria (Auto) 1+H, Urine Squamous Epithelial Cells 0, Urine Sperm (Auto) 12/26/16 06:16: White Blood Count 5.3, Red Blood Count 2.77L, Hemoglobin 9.1L, Hematocrit 26.0L , Mean Corpuscular Volume 93.6, Mean Corpuscular Hemoglobin 32.9, Mean Corpuscular Hemoglobin Concent 35.1, Red Cell Distribution Width 13.6, Platelet Count 203, Neutrophils (%) (Auto) 69.2H, Lymphocytes (%) (Auto) 18.7L, Monocytes (%) (Auto) 6.4H, Eosinophils (%) (Auto) 3.1H, Basophils (%) (Auto) 0.3 , Neutrophils # (Auto) 3.7, Lymphocytes # (Auto) 1.1L, Monocytes # (Auto) 0.3, Eosinophils # (Auto) 0.2, Basophils # (Auto) 0.0, Large Unclassified Cells % 2.2 , Large Unclassified Cells # 0.1, Anion Gap 7L, Glomerular Filtration Rate > 60.0, Blood Urea Nitrogen 13, Creatinine 0.66, Sodium Level 134L, Potassium Level 4.5, Chloride Level 99, Carbon Dioxide Level 28, Calcium Level 8.8, Aspartate Amino Transf (AST/SGOT) 15, Alanine Aminotransferase (ALT/SGPT) 14, Alkaline Phosphatase 57, Total Bilirubin 0.8, Total Protein 6.0L, Albumin 2.5L, Albumin/Globulin Ratio 0.71L CBC/BMP Laboratory Tests 12/26/16 06:16 Red Blood Count 2.77 L, Mean Corpuscular Volume 93.6, Mean Corpuscular Hemoglobin 32.9, Mean Corpuscular Hemoglobin Concent 35.1, Red Cell Distribution Width 13.6, Neutrophils (%) (Auto) 69.2 H, Lymphocytes (%) (Auto) 18.7 L, Monocytes (%) (Auto) 6.4 H, Eosinophils (%) (Auto) 3.1 H, Basophils (%) (Auto) 0.3, Neutrophils # (Auto) 3.7, Lymphocytes # (Auto) 1.1 L, Monocytes # ( Auto) 0.3, Eosinophils # (Auto) 0.2, Basophils # (Auto) 0.0, Calcium Level 8.8, Aspartate Amino Transf (AST/SGOT) 15, Alanine Aminotransferase (ALT/SGPT) 14, Alkaline Phosphatase 57, Total Bilirubin 0.8, Total Protein 6.0 L, Albumin 2.5 L Ava Osman Dec 26, 2016 10:57
--- NOTE | 2016-12-26 11:22 | IPNPDOC ---
Record Cutter Progress Note DATE OF SERVICE: 12/26/16 DATE OF ADMISSION: Dec 25, 2016 at 16:00 INPATIENT REHABILITATION ADMISSION DAY: #2 SUBJECTIVE: Patient is a 71-year-old white female with right distal fibular fracture, status post ORIF then casted. Patient's case complicated by morbid obesity with inadequate arm strength, moderate anemia, periods of Atrial Fibrillation and respiratory problems including asthma and obstructive sleep apnea. Patient reports having fair pain control and try not to use much of the opiates. Today she is starting training with physical and occupational therapy. She is otherwise without complaints today. ALLERGIES: See Below MEDICATIONS: Reviewed, see below. OBJECTIVE: VITAL SIGNS: Please see below. PHYSICAL EXAMINATION: GENERAL: Morbidly obese average height elderly white female who is pleasant and in good spirits as well as alert and oriented 4. Patient appears to be in very mild musculoskeletal distress. HEENT: Normocephalic/atraumatic. CARDIOVASCULAR: Regular rate and rhythm with normal S1-S2 without S3-S4 murmurs or rubs. 2/4 bilateral radial pulses. LUNGS: All woods clear to auscultation. ABDOMEN: Obese with normal bowel sounds in all quadrants. NEUROLOGICAL: No change from admission history and physical. SKIN: Surgical incision under short leg cast. No drainage noted into the cast wall. LABORATORY DATA: Reviewed. Please see below. MICROBIOLOGY: Please see below. IMAGING: No new imaging. DVT prophylaxis ordered?: JOHANNA hose on the left lower extremity and patient back on Eliquis. ASSESSMENT AND PLAN: 1. Rehabilitation of debility related to right fibular fracture with multiple medical problems as noted above: Patient starting her therapy with physical and occupational therapy we will be monitoring blood pressure and oxygen. Initial training will be for wheelchair ADLs and mobility and try and transition as much as possible to learning walker mobility and ADLs. Patient will be reviewed in team rounds today. Rehabilitation team rounds: Patient doing better with walker adjustments, but needs additional PT/OT training and conditioning. She may benefit from Bilateral Platform Wheeled Walker. Pain medications may be transitioned down as she is not using much of the Oxycodone. I will consider Tramadol. Anticipated Date of Discharge to Home is January 04, 2017. 2. Moderate anemia: H&H is 9.126 0.0% which is stable versus her values prior to transfer to the acute rehabilitation unit. 3. Hyponatremia: Currently this is very mild at 134 and we will monitor periodically. 4. Hypoalbuminemia: Albumin 2.5 this morning will try to work with patient to improve nutrition rebuild this which will help with healing the fracture and recovering from the anemia. TIME SPENT: Chart Review, examination and documentation required greater than 35 minutes. Allergies Coded Allergies: Contrast Media (Verified Allergy, Intermediate, 10/17/16) rash Vital Signs Vital Signs Date Time Temp Pulse Resp B/P (MAP) Pulse Ox O2 Delivery O2 Flow Rate FiO2 12/26/16 08:28 79 119/59 12/26/16 06:00 98.0 18 95 Room Air Laboratory Data CBC/BMP Laboratory Tests 12/26/16 06:16 Red Blood Count 2.77 L, Mean Corpuscular Volume 93.6, Mean Corpuscular Hemoglobin 32.9, Mean Corpuscular Hemoglobin Concent 35.1, Red Cell Distribution Width 13.6, Neutrophils (%) (Auto) 69.2 H, Lymphocytes (%) (Auto) 18.7 L, Monocytes (%) (Auto) 6.4 H, Eosinophils (%) (Auto) 3.1 H, Basophils (%) (Auto) 0.3, Neutrophils # (Auto) 3.7, Lymphocytes # (Auto) 1.1 L, Monocytes # ( Auto) 0.3, Eosinophils # (Auto) 0.2, Basophils # (Auto) 0.0, Calcium Level 8.8, Aspartate Amino Transf (AST/SGOT) 15, Alanine Aminotransferase (ALT/SGPT) 14, Alkaline Phosphatase 57, Total Bilirubin 0.8, Total Protein 6.0 L, Albumin 2.5 L Labs 24H Laboratory Tests 2 12/25/16 20:10: Urine Appearance CLEAR, Urine Color STRAW, Urine pH 6.0, Urine Specific [place] 1.003, Urine Protein NEGATIVE, Urine Glucose (UA) NEGATIVE, Urine Ketones NEGATIVE, Urine Urobilinogen 0.2, Urine Bilirubin NEGATIVE, Urine Leukocyte Esterase NEGATIVE, Urine Blood 1+H, Urine Nitrite NEGATIVE, Urine WBC (Auto) 2, Urine RBC (Auto) 0, Urine Hyaline Casts (Auto) 0, Urine Bacteria (Auto) 1+H, Urine Squamous Epithelial Cells 0, Urine Sperm (Auto) 12/26/16 06:16: White Blood Count 5.3, Red Blood Count 2.77L, Hemoglobin 9.1L, Hematocrit 26.0L , Mean Corpuscular Volume 93.6, Mean Corpuscular Hemoglobin 32.9, Mean Corpuscular Hemoglobin Concent 35.1, Red Cell Distribution Width 13.6, Platelet Count 203, Neutrophils (%) (Auto) 69.2H, Lymphocytes (%) (Auto) 18.7L, Monocytes (%) (Auto) 6.4H, Eosinophils (%) (Auto) 3.1H, Basophils (%) (Auto) 0.3 , Neutrophils # (Auto) 3.7, Lymphocytes # (Auto) 1.1L, Monocytes # (Auto) 0.3, Eosinophils # (Auto) 0.2, Basophils # (Auto) 0.0, Large Unclassified Cells % 2.2 , Large Unclassified Cells # 0.1, Anion Gap 7L, Glomerular Filtration Rate > 60.0, Blood Urea Nitrogen 13, Creatinine 0.66, Sodium Level 134L, Potassium Level 4.5, Chloride Level 99, Carbon Dioxide Level 28, Calcium Level 8.8, Aspartate Amino Transf (AST/SGOT) 15, Alanine Aminotransferase (ALT/SGPT) 14, Alkaline Phosphatase 57, Total Bilirubin 0.8, Total Protein 6.0L, Albumin 2.5L, Albumin/Globulin Ratio 0.71L Current Medications Current Medications Current Medications Acetaminophen (Tylenol Tab) 650 mg Q6HP PRN PO PAIN OR FEVER Last administered on 12/26/16 08:27; Start 12/25/16 at 16:30; Stop 01/24/17 at 16:29 Albuterol/ Ipratropium (Duoneb (Ipr 0.5mg/Alb 2.5mg)) 3 ml Q2HP PRN NEB SOB/ WHEEZING; Start 12/25/16 at 16:30; Stop 01/24/17 at 16:29 Albuterol/ Ipratropium (Duoneb (Ipr 0.5mg/Alb 2.5mg)) 3 ml RQ6H NEB ; Start 04/03 at 20:00; Stop 01/24/17 at 19:59 Apixaban (Eliquis) 5 mg BID PO Last administered on 12/26/16 08:27; Start 04/03 at 21:00; Stop 01/01/17 at 20:59 Ascorbic Acid (Vitamin C) 500 mg BID PO Last administered on 12/26/16 08:27; Start 12/25/16 at 21:00; Stop 01/24/17 at 20:59 Budesonide/ Formoterol Fumarate (Symbicort 160/ 4.5mcg) 2 puff BID INH Last administered on 12/26/16 07:07; Start 12/25/16 at 21:00; Stop 01/24/17 at 20:59 Magnesium Hydroxide (Milk Of Magnesia) 30 ml DAILYPRN PRN PO CONSTIPATION; Start 12/25/16 at 16:30; Stop 01/24/17 at 16:29 Montelukast Sodium (Singulair) 10 mg QHS PO Last administered on 12/25/16 20: 09; Start 12/25/16 at 21:00; Stop 01/24/17 at 20:59 Nadolol (Corgard) 40 mg DAILY PO Last administered on 12/26/16 08:28; Start at 09:00; Stop 01/25/17 at 08:59 Oxycodone HCl (Roxicodone, Oxyir) 5 mg Q4HP PRN PO PAIN 5-7; Start 12/25/16 at 16:30; Stop 01/03/17 at 23:55 Oxycodone HCl (Roxicodone, Oxyir) 10 mg Q4HP PRN PO SEVERE PAIN (PS 8-10); Start 12/25/16 at 16:30; Stop 01/03/17 at 23:55 Polyethylene Glycol (Miralax) 1 pkt DAILY PRN PO CONSTIPATION; Start 12/25/16 at 16:30; Stop 01/24/17 at 16:29 Pregabalin (Lyrica) 50 mg BID PO Last administered on 12/26/16 08:27; Start at 21:00; Stop 01/01/17 at 20:59 Senna/Docusate Sodium (Senokot S) 1 tab BID PO Last administered on 12/26/16 08:27; Start 12/25/16 at 21:00; Stop 01/24/17 at 20:59 Sodium Biphosphate/ Sodium Phosphate (Fleet Enema) 1 ea DAILYPRN PRN [place] CONSTIPATION; Start 12/25/16 at 16:30; Stop 01/24/17 at 16:29 Tamsulosin HCl (Flomax) 0.4 mg QHS PO Last administered on 12/25/16 20:09; Start 12/25/16 at 21:00; Stop 01/24/17 at 20:59 Vitamin D (Vitamin D) 1,000 units DAILY PO Last administered on 12/26/16 08:27 ; Start 12/26/16 at 09:00; Stop 01/25/17 at 08:59 WILIAM PRETTY MD Dec 26, 2016 11:22
[2016-12-26 14:00] VITALS: BP 121/60
[2016-12-26] MEDS: traMADol 50 MG TAB PO PRN (17:39)
[2016-12-26 20:00] VITALS: BP 142/82
[2016-12-26] MEDS: TAMSULOSIN 0.4 MG CAP PO SCH (20:49)
[2016-12-26] MEDS: MONTELUKAST 10 MG TAB PO SCH (20:50)
[2016-12-27] MEDS: IPRATROPIUM 0.5MG/ALBUTEROL 2.5MG INH SOL UD 3ML (DUONEB)(J7620) NEB SCH ×4 (02:00→20:00)
[2016-12-27 06:00] VITALS: BP 140/66
[2016-12-27 07:20] LABS: MEAN CORPUSCULAR HGB CONC 33.9 g/dl (32.0-36.5); MEAN CORPUSCULAR VOLUME 94.3 fl (80.0-96.0); RED CELL DISTRIBUTION WIDTH 13.6 % (11.5-14.5); WHITE BLOOD COUNT 6.6 K/mm3 (4.0-10.0)
[2016-12-27 07:38] LABS: ALBUMIN 2.5 GM/DL (3.2-5.2); ALBUMIN/GLOBULIN RATIO 0.76 (1.00-1.93); ALKALINE PHOSPHATASE 55 U/L (45-117); ALT/SGPT 13 U/L (12-78); ANION GAP 7 MEQ/L (8-16); AST/SGOT 17 U/L (15-37); BILIRUBIN,TOTAL 0.7 MG/DL (0.2-1.0); BLOOD UREA NITROGEN 11 MG/DL (7-18); CALCIUM LEVEL 8.7 MG/DL (8.8-10.2); CARBON DIOXIDE LEVEL 27 MEQ/L (21-32); CHLORIDE LEVEL 98 MEQ/L (98-107); CREATININE FOR GFR 0.62 MG/DL (0.55-1.02); GLOMERULAR FILTRATION RATE > 60.0 (>39); GLUCOSE, FASTING 90 MG/DL (83-110); SODIUM LEVEL 132 MEQ/L (136-145); TOTAL PROTEIN 5.8 GM/DL (6.4-8.2)
[2016-12-27] MEDS: SYMBICORT 160/4.5MCG INHALER 6GM INH SCH ×2 (07:39→20:00)
[2016-12-27] MEDS: ASCORBIC ACID 500 MG TAB PO SCH ×2 (08:55→21:00)
[2016-12-27] MEDS: VITAMIN D 1,000 INTERNATIONAL UNITS TABLET PO SCH (08:55)
[2016-12-27] MEDS: PREGABALIN 50 MG CAP (LYRICA) PO SCH ×2 (08:55→21:00)
[2016-12-27] MEDS: APIXABAN 5 MG TAB (ELIQUIS) PO SCH ×2 (08:55→20:59)
[2016-12-27] MEDS: NADOLOL 20MG TABLET PO SCH (08:56)
[2016-12-27] MEDS: SENOKOT S TAB PO SCH ×2 (08:56→20:59)
[2016-12-27] MEDS: ACETAMINOPHEN TAB 650MG DOSE (2X325MG) PO PRN (08:57)
--- NOTE | 2016-12-27 12:08 | IPNPDOC ---
Bag Printer Progress Note DATE OF SERVICE: 12/27/16 DATE OF ADMISSION: Dec 25, 2016 at 16:00 INPATIENT REHABILITATION ADMISSION DAY: #3 SUBJECTIVE: Patient is a 71-year-old white female with right distal fibular fracture, status post ORIF then casted. Patient's case complicated by morbid obesity with inadequate arm strength, moderate anemia, periods of Atrial Fibrillation and respiratory problems including asthma and obstructive sleep apnea. Patient reports having fair pain control and try not to use much of the opiates. She note left ankle that she broke years ago hurting more than the right today, but not too much. ALLERGIES: See Below MEDICATIONS: Reviewed, see below. OBJECTIVE: VITAL SIGNS: Please see below. PHYSICAL EXAMINATION: GENERAL: Morbidly obese average height elderly white female who is pleasant and in good spirits as well as alert and oriented 4. Patient appears to be in very mild musculoskeletal distress. HEENT: Normocephalic/atraumatic. CARDIOVASCULAR: Regular rate and rhythm with normal S1-S2 without S3-S4 murmurs or rubs. 2/4 bilateral radial pulses. LUNGS: All woods clear to auscultation. ABDOMEN: Obese with normal bowel sounds in all quadrants. NEUROLOGICAL: No change from admission history and physical. SKIN: Surgical incision under short leg cast. No drainage noted into the cast wall. LABORATORY DATA: Reviewed. Please see below. MICROBIOLOGY: Please see below. IMAGING: No new imaging. DVT prophylaxis ordered?: JOHANNA hose on the left lower extremity and patient back on Eliqu. ASSESSMENT AND PLAN: 1. Rehabilitation of debility related to right fibular fracture with multiple medical problems as noted above: Patient starting her therapy with physical and occupational therapy we will be monitoring blood pressure and oxygen. Initial training will be for wheelchair ADLs and mobility and try and transition as much as possible to learning walker mobility and ADLs. Patient doing better with walker adjustments, but needs additional PT/OT training and conditioning. She may benefit from Bilateral Platform Wheeled Walker. Pain medications changed to Tramadol by Orthopedics. Anticipated Date of Discharge to Home is January 04, 2017. 2. Moderate anemia: H&H is 8.9 & 26.4% which is stable versus her values prior to transfer to the acute rehabilitation unit. 3. Hyponatremia: Currently this is very mild, but slightly worse at 132 today. I will add some NaCl tabs to see if this will get the level up. 4. Hypoalbuminemia: Albumin 2.5 this morning again is stable. We will try to work with patient to improve nutrition rebuild this which will help with healing the fracture and recovering from the anemia. TIME SPENT: Chart Review, examination and documentation required greater than 25 minutes. Allergies Coded Allergies: Contrast Media (Verified Allergy, Intermediate, 10/17/16) rash Vital Signs Vital Signs Date Time Temp Pulse Resp B/P (MAP) Pulse Ox O2 Delivery O2 Flow Rate FiO2 12/27/16 08:56 76 140/66 12/27/16 06:00 98.9 18 94 Room Air Laboratory Data CBC/BMP Laboratory Tests 12/27/16 06:48 Red Blood Count 2.79 L, Mean Corpuscular Volume 94.3, Mean Corpuscular Hemoglobin 32.0, Mean Corpuscular Hemoglobin Concent 33.9, Red Cell Distribution Width 13.6, Calcium Level 8.7 L, Aspartate Amino Transf (AST/SGOT) 17, Alanine Aminotransferase (ALT/SGPT) 13, Alkaline Phosphatase 55, Total Bilirubin 0.7, Total Protein 5.8 L, Albumin 2.5 L Labs 24H Laboratory Tests 2 12/27/16 06:48: Anion Gap 7L, Glomerular Filtration Rate > 60.0, Blood Urea Nitrogen 11, Creatinine 0.62, Sodium Level 132L, Potassium Level 4.0, Chloride Level 98, Carbon Dioxide Level 27, Calcium Level 8.7L, Aspartate Amino Transf (AST/SGOT) 17, Alanine Aminotransferase (ALT/SGPT) 13, Alkaline Phosphatase 55, Total Bilirubin 0.7, Total Protein 5.8L, Albumin 2.5L, Albumin/Globulin Ratio 0.76L Current Medications Current Medications Current Medications Acetaminophen (Tylenol Tab) 650 mg Q6HP PRN PO PAIN OR FEVER Last administered on 12/27/16t 08:57; Start 12/25/16 at 16:30; Stop 01/24/17 at 16:29 Albuterol/ Ipratropium (Duoneb (Ipr 0.5mg/Alb 2.5mg)) 3 ml Q2HP PRN NEB SOB/ WHEEZING; Start 12/25/16 at 16:30; Stop 01/24/17 at 16:29 Albuterol/ Ipratropium (Duoneb (Ipr 0.5mg/Alb 2.5mg)) 3 ml RQ6H NEB Last administered on 12/26/16 13:15; Start 12/25/16 at 20:00; Stop 01/24/17 at 19:59 Apixaban (Eliquis) 5 mg BID PO Last administered on 12/27/16 08:55; Start 04/03 at 21:00; Stop 01/01/17 at 20:59 Ascorbic Acid (Vitamin C) 500 mg BID PO Last administered on 12/27/16 08:55; Start 12/25/16 at 21:00; Stop 01/24/17 at 20:59 Budesonide/ Formoterol Fumarate (Symbicort 160/ 4.5mcg) 2 puff BID INH Last administered on 12/27/16 07:39; Start 12/25/16 at 21:00; Stop 01/24/17 at 20:59 Magnesium Hydroxide (Milk Of Magnesia) 30 ml DAILYPRN PRN PO CONSTIPATION; Start 12/25/16 at 16:30; Stop 01/24/17 at 16:29 Montelukast Sodium (Singulair) 10 mg QHS PO Last administered on 12/26/16 20: 50; Start 12/25/16 at 21:00; Stop 01/24/17 at 20:59 Nadolol (Corgard) 40 mg DAILY PO Last administered on 12/27/16 08:56; Start at 09:00; Stop 01/25/17 at 08:59 Oxycodone HCl (Roxicodone, Oxyir) 5 mg Q4HP PRN PO PAIN 5-7; Start 12/25/16 at 16:30; Stop 01/03/17 at 23:55; Status Cancel Oxycodone HCl (Roxicodone, Oxyir) 10 mg Q4HP PRN PO SEVERE PAIN (PS 8-10); Start 12/25/16 at 16:30; Stop 01/03/17 at 23:55; Status Cancel Polyethylene Glycol (Miralax) 1 pkt DAILY PRN PO CONSTIPATION; Start 12/25/16 at 16:30; Stop 01/24/17 at 16:29 Pregabalin (Lyrica) 50 mg BID PO Last administered on 12/27/16 08:55; Start at 21:00; Stop 01/01/17 at 20:59 Senna/Docusate Sodium (Senokot S) 1 tab BID PO Last administered on 12/27/16 08:56; Start 12/25/16 at 21:00; Stop 01/24/17 at 20:59 Sodium Biphosphate/ Sodium Phosphate (Fleet Enema) 1 ea DAILYPRN PRN [place] CONSTIPATION; Start 12/25/16 at 16:30; Stop 01/24/17 at 16:29 Tamsulosin HCl (Flomax) 0.4 mg QHS PO Last administered on 12/26/16 20:49; Start 12/25/16 at 21:00; Stop 01/24/17 at 20:59 Tramadol HCl (Ultram) 50 mg Q4HP PRN PO MILD PAIN (PS 1-4) Last administered on 12/26/16 17:39; Start 12/26/16 at 17:15; Stop 01/02/17 at 17:14 Tramadol HCl (Ultram) 100 mg Q6HP PRN PO MODERATE PAIN (PS 5-7); Start at 17:15; Stop 01/02/17 at 17:14 Vitamin D (Vitamin D) 1,000 units DAILY PO Last administered on 12/27/16 08:55 ; Start 12/26/16 at 09:00; Stop 01/25/17 at 08:59 WILIAM PRETTY MD Dec 27, 2016 12:08
[2016-12-27] MEDS: traMADol 50 MG TAB PO PRN (13:10)
[2016-12-27] MEDS: SODIUM CHLORIDE 1 GM TAB PO SCH ×2 (13:19→21:00)
[2016-12-27 14:00] VITALS: BP 128/57
[2016-12-27] MEDS: TAMSULOSIN 0.4 MG CAP PO SCH (20:59)
[2016-12-27] MEDS: MONTELUKAST 10 MG TAB PO SCH (20:59)
[2016-12-27 21:00] VITALS: BP 120/69
[2016-12-28] MEDS: IPRATROPIUM 0.5MG/ALBUTEROL 2.5MG INH SOL UD 3ML (DUONEB)(J7620) NEB SCH ×4 (02:00→19:55)
[2016-12-28 06:00] VITALS: BP 120/58
[2016-12-28] MEDS: SYMBICORT 160/4.5MCG INHALER 6GM INH SCH ×2 (07:19→19:55)
[2016-12-28] MEDS: APIXABAN 5 MG TAB (ELIQUIS) PO SCH ×2 (09:22→21:14)
[2016-12-28] MEDS: ASCORBIC ACID 500 MG TAB PO SCH ×2 (09:22→21:13)
[2016-12-28] MEDS: PREGABALIN 50 MG CAP (LYRICA) PO SCH ×2 (09:22→21:13)
[2016-12-28] MEDS: SODIUM CHLORIDE 1 GM TAB PO SCH ×2 (09:22→21:13)
[2016-12-28] MEDS: VITAMIN D 1,000 INTERNATIONAL UNITS TABLET PO SCH (09:22)
[2016-12-28] MEDS: ACETAMINOPHEN TAB 650MG DOSE (2X325MG) PO PRN (09:23)
[2016-12-28] MEDS: SENOKOT S TAB PO SCH ×2 (09:23→21:13)
[2016-12-28] MEDS: NADOLOL 20MG TABLET PO SCH (09:23)
[2016-12-28] MEDS ORDERED: BISACODYL 5 MG TAB PO PRN (09:45)
--- NOTE | 2016-12-28 12:50 | IPNPDOC ---
Kindergarten Assistant Progress Note DATE OF SERVICE: 12/28/16 DATE OF ADMISSION: Dec 25, 2016 at 16:00 INPATIENT REHABILITATION ADMISSION DAY: #4 SUBJECTIVE: Patient is a 71-year-old white female with right distal fibular fracture, status post ORIF then casted. Patient's case complicated by morbid obesity with inadequate arm strength, moderate anemia, periods of Atrial Fibrillation and respiratory problems including asthma and obstructive sleep apnea. Patient reports having fair pain control and try not to use much of the opiates. She note left ankle that she broke years ago hurting more than the right today, but not too much. ALLERGIES: See Below MEDICATIONS: Reviewed, see below. OBJECTIVE: VITAL SIGNS: Please see below. PHYSICAL EXAMINATION: GENERAL: Morbidly obese average height elderly white female who is pleasant and in good spirits as well as alert and oriented 4. Patient appears to be in very mild musculoskeletal distress. HEENT: Normocephalic/atraumatic. CARDIOVASCULAR: Regular rate and rhythm with normal S1-S2 without S3-S4 murmurs or rubs. 2/4 bilateral radial pulses. LUNGS: All woods clear to auscultation. ABDOMEN: Obese with normal bowel sounds in all quadrants. NEUROLOGICAL: No change from admission history and physical. SKIN: Surgical incision under short leg cast. No drainage noted into the cast wall. ecchymosis down in left lateral thigh and left ankle. LABORATORY DATA: Reviewed. Please see below. MICROBIOLOGY: Please see below. IMAGING: No new imaging. DVT prophylaxis ordered?: JOHANNA hose on the left lower extremity and patient back on [facility]. ASSESSMENT AND PLAN: 1. Rehabilitation of debility related to right fibular fracture with multiple medical problems as noted above: Patient starting her therapy with physical and occupational therapy we will be monitoring blood pressure and oxygen. Initial training will be for wheelchair ADLs and mobility and try and transition as much as possible to learning walker mobility and ADLs. Patient doing better with walker adjustments, but needs additional PT/OT training and conditioning. Pain medications changed to Tramadol by Orthopedics. Anticipated Date of Discharge to Home is January 04, 2017. Rehabilitation Team Rounds: Patient making good initial progress in PT/OT and on pace to reach discharge to home goals on about 01/04/17. 2. Moderate anemia: H&H is 8.9 & 26.4% yesterday, which is stable versus her values prior to transfer to the acute rehabilitation unit. 3. Hyponatremia: Currently this is very mild, but slightly worse at 132 yesterday. I will add some NaCl tabs to see if this will get the level up. 4. Hypoalbuminemia: We will try to work with patient to improve nutrition rebuild this which will help with healing the fracture and recovering from the anemia. TIME SPENT: Chart Review, examination and documentation required greater than 35 minutes. Allergies Coded Allergies: Contrast Media (Verified Allergy, Intermediate, 10/17/16) rash Vital Signs Vital Signs Date Time Temp Pulse Resp B/P (MAP) Pulse Ox O2 Delivery O2 Flow Rate FiO2 12/28/16 09:23 135/71 12/28/16 06:00 97.2 79 18 95 Room Air Current Medications Current Medications Current Medications Acetaminophen (Tylenol Tab) 650 mg Q6HP PRN PO PAIN OR FEVER Last administered on 12/28/16 09:23; Start 12/25/16 at 16:30; Stop 01/24/17 at 16:29 Albuterol/ Ipratropium (Duoneb (Ipr 0.5mg/Alb 2.5mg)) 3 ml Q2HP PRN NEB SOB/ WHEEZING; Start 12/25/16 at 16:30; Stop 01/24/17 at 16:29 Albuterol/ Ipratropium (Duoneb (Ipr 0.5mg/Alb 2.5mg)) 3 ml RQ6H NEB Last administered on 12/27/16 14:55; Start 12/25/16 at 20:00; Stop 01/24/17 at 19:59 Apixaban (Eliquis) 5 mg BID PO Last administered on 12/28/16 09:22; Start 04/03 at 21:00; Stop 01/01/17 at 20:59 Ascorbic Acid (Vitamin C) 500 mg BID PO Last administered on 12/28/16 09:22; Start 12/25/16 at 21:00; Stop 01/24/17 at 20:59 Bisacodyl (Dulcolax Tab) 10 mg DAILYPRN PRN PO CONSTIPATION; Start 12/28/16 at 09:45; Stop 01/27/17 at 09:44 Budesonide/ Formoterol Fumarate (Symbicort 160/ 4.5mcg) 2 puff BID INH Last administered on 12/28/16 07:19; Start 12/25/16 at 21:00; Stop 01/24/17 at 20:59 Magnesium Hydroxide (Milk Of Magnesia) 30 ml DAILYPRN PRN PO CONSTIPATION; Start 12/25/16 at 16:30; Stop 01/24/17 at 16:29 Montelukast Sodium (Singulair) 10 mg QHS PO Last administered on 12/27/16 20: 59; Start 12/25/16 at 21:00; Stop 01/24/17 at 20:59 Nadolol (Corgard) 40 mg DAILY PO Last administered on 12/28/16 09:23; Start at 09:00; Stop 01/25/17 at 08:59 Oxycodone HCl (Roxicodone, Oxyir) 5 mg Q4HP PRN PO PAIN 5-7; Start 12/25/16 at 16:30; Stop 01/03/17 at 23:55; Status Cancel Oxycodone HCl (Roxicodone, Oxyir) 10 mg Q4HP PRN PO SEVERE PAIN (PS 8-10); Start 12/25/16 at 16:30; Stop 01/03/17 at 23:55; Status Cancel Polyethylene Glycol (Miralax) 1 pkt DAILY PRN PO CONSTIPATION; Start 12/25/16 at 16:30; Stop 01/24/17 at 16:29 Pregabalin (Lyrica) 50 mg BID PO Last administered on 12/28/16 09:22; Start at 21:00; Stop 01/01/17 at 20:59 Senna/Docusate Sodium (Senokot S) 1 tab BID PO Last administered on 12/27/16 20:59; Start 12/25/16 at 21:00; Stop 01/24/17 at 20:59 Sodium Biphosphate/ Sodium Phosphate (Fleet Enema) 1 ea DAILYPRN PRN [place] CONSTIPATION; Start 12/25/16 at 16:30; Stop 01/24/17 at 16:29 Sodium Chloride (Sodium Chloride) 1 gm BID PO Last administered on 12/28/16 09 :22; Start 12/27/16 at 09:00; Stop 01/05/17 at 08:59 Tamsulosin HCl (Flomax) 0.4 mg QHS PO Last administered on 12/27/16 20:59; Start 12/25/16 at 21:00; Stop 01/24/17 at 20:59 Tramadol HCl (Ultram) 50 mg Q4HP PRN PO MILD PAIN (PS 1-4) Last administered on 12/26/16 17:39; Start 12/26/16 at 17:15; Stop 01/02/17 at 17:14 Tramadol HCl (Ultram) 100 mg Q6HP PRN PO MODERATE PAIN (PS 5-7) Last administered on 12/27/16 13:10; Start 12/26/16 at 17:15; Stop 01/02/17 at 17:14 Vitamin D (Vitamin D) 1,000 units DAILY PO Last administered on 12/28/16 09:22 ; Start 12/26/16 at 09:00; Stop 01/25/17 at 08:59 WILIAM PRETTY MD Dec 28, 2016 12:50
[2016-12-28 14:00] VITALS: BP 142/90
[2016-12-28] MEDS: traMADol 50 MG TAB PO PRN (17:36)
[2016-12-28 20:30] VITALS: BP 149/69
[2016-12-28] MEDS: TAMSULOSIN 0.4 MG CAP PO SCH (21:13)
[2016-12-28] MEDS: MONTELUKAST 10 MG TAB PO SCH (21:13)
[2016-12-29] MEDS: IPRATROPIUM 0.5MG/ALBUTEROL 2.5MG INH SOL UD 3ML (DUONEB)(J7620) NEB SCH ×4 (02:00→20:00)
[2016-12-29 06:00] VITALS: BP 129/61
[2016-12-29] MEDS: SYMBICORT 160/4.5MCG INHALER 6GM INH SCH ×2 (07:32→21:02)
[2016-12-29 08:29] LABS: MEAN CORPUSCULAR HEMOGLOBIN 31.3 pg (27.0-33.0); MEAN CORPUSCULAR HGB CONC 33.4 g/dl (32.0-36.5); MEAN CORPUSCULAR VOLUME 93.9 fl (80.0-96.0); RED CELL DISTRIBUTION WIDTH 13.9 % (11.5-14.5); WHITE BLOOD COUNT 5.6 K/mm3 (4.0-10.0)
[2016-12-29 08:45] LABS: ANION GAP 8 MEQ/L (8-16); BLOOD UREA NITROGEN 13 MG/DL (7-18); CALCIUM LEVEL 8.9 MG/DL (8.8-10.2); CARBON DIOXIDE LEVEL 27 MEQ/L (21-32); CHLORIDE LEVEL 100 MEQ/L (98-107); CREATININE FOR GFR 0.59 MG/DL (0.55-1.02); GLOMERULAR FILTRATION RATE > 60.0 (>39); GLUCOSE, FASTING 81 MG/DL (83-110); POTASSIUM SERUM 3.8 MEQ/L (3.5-5.1); SODIUM LEVEL 135 MEQ/L (136-145)
[2016-12-29] MEDS: NADOLOL 20MG TABLET PO SCH (09:03)
[2016-12-29] MEDS: SENOKOT S TAB PO SCH ×2 (09:03→21:00)
[2016-12-29] MEDS: APIXABAN 5 MG TAB (ELIQUIS) PO SCH ×2 (09:03→21:11)
[2016-12-29] MEDS: VITAMIN D 1,000 INTERNATIONAL UNITS TABLET PO SCH (09:03)
[2016-12-29] MEDS: SODIUM CHLORIDE 1 GM TAB PO SCH ×2 (09:03→21:10)
[2016-12-29] MEDS: PREGABALIN 50 MG CAP (LYRICA) PO SCH ×2 (09:03→21:10)
[2016-12-29] MEDS: ASCORBIC ACID 500 MG TAB PO SCH ×2 (09:03→21:10)
[2016-12-29] MEDS: traMADol 50 MG TAB PO PRN ×2 (10:01→22:10)
--- NOTE | 2016-12-29 11:54 | IPNPDOC ---
Internet Marketing Strategist Progress Note DATE OF SERVICE: 12/29/16 DATE OF ADMISSION: Dec 25, 2016 at 16:00 INPATIENT REHABILITATION ADMISSION DAY: #5 SUBJECTIVE: Patient is a 71-year-old white female with right distal fibular fracture, status post ORIF then casted. Patient's case complicated by morbid obesity with inadequate arm strength, moderate anemia, periods of Atrial Fibrillation and respiratory problems including asthma and obstructive sleep apnea. Patient reports having good pain control. She note left ankle that she broke years ago hurting same than the right today, but not too much. Cast got dampen in Shower training through the plastic bag. ALLERGIES: See Below MEDICATIONS: Reviewed, see below. OBJECTIVE: VITAL SIGNS: Please see below. PHYSICAL EXAMINATION: GENERAL: Morbidly obese average height elderly white female who is pleasant and in good spirits. Patient appears to be in very mild musculoskeletal distress. HEENT: Normocephalic/atraumatic. CARDIOVASCULAR: Regular rate and rhythm with normal S1-S2 without S3-S4 murmurs or rubs. 2/4 bilateral radial pulses. LUNGS: All woods clear to auscultation. ABDOMEN: Obese with normal bowel sounds in all quadrants. NEUROLOGICAL: Alert and oriented 4. Speech is clear coherent and appropriate. Patient making good progress using bilateral upper and left lower extremity though unable to lift weight with upper extremities at this time. SKIN: Surgical incision under short leg cast. No drainage noted into the cast wall. ecchymosis down in left lateral thigh and left ankle. LABORATORY DATA: Reviewed. Please see below. MICROBIOLOGY: Please see below. IMAGING: No new imaging. DVT prophylaxis ordered?: JOHANNA hose on the left lower extremity and patient back on [facility]. ASSESSMENT AND PLAN: 1. Rehabilitation of debility related to right fibular fracture with multiple medical problems as noted above: Patient starting her therapy with physical and occupational therapy we will be monitoring blood pressure and oxygen. Initial training will be for wheelchair ADLs and mobility and try and transition as much as possible to learning walker mobility and ADLs. Patient doing better with walker adjustments, but needs additional PT/OT training and conditioning. Pain medications changed to Tramadol by Orthopedics. Anticipated Date of Discharge to Home is January 04, 2017. Cast got damp during shower training, but solid and no soft spots. I will have patient keep off it and let it air dry. If it dents, then nursing will notify Orthopedics. Mobility allows for d/c of centeno. 2. Moderate anemia: H&H is 9.1 & 27.3% today, which is stable. 3. Hyponatremia: Currently this is very mild, better at 135 today. NaCl tabs seems to help get the level up. 4. Hypoalbuminemia: We will try to work with patient to improve nutrition rebuild this which will help with healing the fracture and recovering from the anemia. TIME SPENT: Chart Review, examination and documentation required greater than 25 minutes. Allergies Coded Allergies: Contrast Media (Verified Allergy, Intermediate, 10/17/16) rash Vital Signs Vital Signs Date Time Temp Pulse Resp B/P (MAP) Pulse Ox O2 Delivery O2 Flow Rate FiO2 12/29/16 10:31 20 12/29/16 09:03 78 129/61 12/29/16 06:00 98.6 93 Room Air Laboratory Data CBC/BMP Laboratory Tests 12/29/16 07:15 Red Blood Count 2.91 L, Mean Corpuscular Volume 93.9, Mean Corpuscular Hemoglobin 31.3, Mean Corpuscular Hemoglobin Concent 33.4, Red Cell Distribution Width 13.9, Calcium Level 8.9 Labs 24H Laboratory Tests 2 12/29/16 07:15: Anion Gap 8, Glomerular Filtration Rate > 60.0, Blood Urea Nitrogen 13, Creatinine 0.59, Sodium Level 135L, Potassium Level 3.8, Chloride Level 100, Carbon Dioxide Level 27, Calcium Level 8.9 Current Medications Current Medications Current Medications Acetaminophen (Tylenol Tab) 650 mg Q6HP PRN PO PAIN OR FEVER Last administered on 12/28/16 09:23; Start 12/25/16 at 16:30; Stop 01/24/17 at 16:29 Albuterol/ Ipratropium (Duoneb (Ipr 0.5mg/Alb 2.5mg)) 3 ml Q2HP PRN NEB SOB/ WHEEZING; Start 12/25/16 at 16:30; Stop 01/24/17 at 16:29 Albuterol/ Ipratropium (Duoneb (Ipr 0.5mg/Alb 2.5mg)) 3 ml RQ6H NEB Last administered on 12/28/16 13:53; Start 12/25/16 at 20:00; Stop 01/24/17 at 19:59 Apixaban (Eliquis) 5 mg BID PO Last administered on 12/29/16 09:03; Start 04/03 at 21:00; Stop 01/03/17 at 23:55 Ascorbic Acid (Vitamin C) 500 mg BID PO Last administered on 12/29/16 09:03; Start 12/25/16 at 21:00; Stop 01/24/17 at 20:59 Bisacodyl (Dulcolax Tab) 10 mg DAILYPRN PRN PO CONSTIPATION; Start 12/28/16 at 09:45; Stop 01/27/17 at 09:44 Budesonide/ Formoterol Fumarate (Symbicort 160/ 4.5mcg) 2 puff BID INH Last administered on 12/29/16 07:32; Start 12/25/16 at 21:00; Stop 01/24/17 at 20:59 Magnesium Hydroxide (Milk Of Magnesia) 30 ml DAILYPRN PRN PO CONSTIPATION; Start 12/25/16 at 16:30; Stop 01/24/17 at 16:29 Montelukast Sodium (Singulair) 10 mg QHS PO Last administered on 12/28/16 21: 13; Start 12/25/16 at 21:00; Stop 01/24/17 at 20:59 Nadolol (Corgard) 40 mg DAILY PO Last administered on 12/29/16 09:03; Start at 09:00; Stop 01/25/17 at 08:59 Oxycodone HCl (Roxicodone, Oxyir) 5 mg Q4HP PRN PO PAIN 5-7; Start 12/25/16 at 16:30; Stop 01/03/17 at 23:55; Status Cancel Oxycodone HCl (Roxicodone, Oxyir) 10 mg Q4HP PRN PO SEVERE PAIN (PS 8-10); Start 12/25/16 at 16:30; Stop 01/03/17 at 23:55; Status Cancel Polyethylene Glycol (Miralax) 1 pkt DAILY PRN PO CONSTIPATION; Start 12/25/16 at 16:30; Stop 01/24/17 at 16:29 Pregabalin (Lyrica) 50 mg BID PO Last administered on 12/29/16 09:03; Start at 21:00; Stop 01/05/17 at 23:55 Senna/Docusate Sodium (Senokot S) 1 tab BID PO Last administered on 12/29/16 09:03; Start 12/25/16 at 21:00; Stop 01/24/17 at 20:59 Sodium Biphosphate/ Sodium Phosphate (Fleet Enema) 1 ea DAILYPRN PRN [place] CONSTIPATION; Start 12/25/16 at 16:30; Stop 01/24/17 at 16:29 Sodium Chloride (Sodium Chloride) 1 gm BID PO Last administered on 12/29/16 09 :03; Start 12/27/16 at 09:00; Stop 01/05/17 at 08:59 Tamsulosin HCl (Flomax) 0.4 mg QHS PO Last administered on 12/28/16 21:13; Start 12/25/16 at 21:00; Stop 01/24/17 at 20:59 Tramadol HCl (Ultram) 50 mg Q4HP PRN PO MILD PAIN (PS 1-4) Last administered on 12/29/16 10:01; Start 12/26/16 at 17:15; Stop 01/05/17 at 23:55 Tramadol HCl (Ultram) 100 mg Q6HP PRN PO MODERATE PAIN (PS 5-7) Last administered on 12/27/16 13:10; Start 12/26/16 at 17:15; Stop 01/05/17 at 23:55 Vitamin D (Vitamin D) 1,000 units DAILY PO Last administered on 12/29/16 09:03 ; Start 12/26/16 at 09:00; Stop 01/25/17 at 08:59 WILIAM PRETTY MD Dec 29, 2016 11:54
[2016-12-29 14:00] VITALS: BP 144/60
[2016-12-29 21:00] VITALS: BP 137/68
[2016-12-29] MEDS: TAMSULOSIN 0.4 MG CAP PO SCH (21:10)
[2016-12-29] MEDS: MONTELUKAST 10 MG TAB PO SCH (21:11)
[2016-12-29] MEDS: ACETAMINOPHEN TAB 650MG DOSE (2X325MG) PO PRN (21:16)
[2016-12-30] MEDS: IPRATROPIUM 0.5MG/ALBUTEROL 2.5MG INH SOL UD 3ML (DUONEB)(J7620) NEB SCH ×4 (02:36→20:00)
[2016-12-30 06:00] VITALS: BP 124/74
[2016-12-30] MEDS: SENOKOT S TAB PO SCH ×2 (08:14→21:00)
[2016-12-30] MEDS: SYMBICORT 160/4.5MCG INHALER 6GM INH SCH ×2 (08:19→20:57)
[2016-12-30] MEDS: PREGABALIN 50 MG CAP (LYRICA) PO SCH ×2 (08:32→21:11)
[2016-12-30] MEDS: SODIUM CHLORIDE 1 GM TAB PO SCH ×2 (08:32→21:11)
[2016-12-30] MEDS: APIXABAN 5 MG TAB (ELIQUIS) PO SCH ×2 (08:32→21:11)
[2016-12-30] MEDS: ASCORBIC ACID 500 MG TAB PO SCH ×2 (08:32→21:11)
[2016-12-30] MEDS: NADOLOL 20MG TABLET PO SCH (08:32)
[2016-12-30] MEDS: traMADol 50 MG TAB PO PRN ×2 (08:33→21:52)
[2016-12-30] MEDS: VITAMIN D 1,000 INTERNATIONAL UNITS TABLET PO SCH (08:34)
[2016-12-30 14:00] VITALS: BP 126/63
[2016-12-30 20:00] VITALS: BP 156/73
[2016-12-30] MEDS: TAMSULOSIN 0.4 MG CAP PO SCH (21:11)
[2016-12-30] MEDS: MONTELUKAST 10 MG TAB PO SCH (21:11)
[2016-12-31 06:00] VITALS: BP 146/63
[2016-12-31] MEDS: IPRATROPIUM 0.5MG/ALBUTEROL 2.5MG INH SOL UD 3ML (DUONEB)(J7620) NEB SCH ×3 (08:00→20:00)
[2016-12-31] MEDS: SODIUM CHLORIDE 1 GM TAB PO SCH ×2 (08:37→20:47)
[2016-12-31] MEDS: APIXABAN 5 MG TAB (ELIQUIS) PO SCH ×2 (08:37→20:47)
[2016-12-31] MEDS: NADOLOL 20MG TABLET PO SCH (08:37)
[2016-12-31] MEDS: PREGABALIN 50 MG CAP (LYRICA) PO SCH ×2 (08:38→20:48)
[2016-12-31] MEDS: VITAMIN D 1,000 INTERNATIONAL UNITS TABLET PO SCH (08:38)
[2016-12-31] MEDS: traMADol 50 MG TAB PO PRN ×2 (08:38→20:49)
[2016-12-31] MEDS: ASCORBIC ACID 500 MG TAB PO SCH ×2 (08:38→20:47)
[2016-12-31] MEDS: SYMBICORT 160/4.5MCG INHALER 6GM INH SCH ×2 (08:41→20:13)
[2016-12-31] MEDS: SENOKOT S TAB PO SCH ×2 (09:00→20:40)
[2016-12-31 14:00] VITALS: BP 136/65
[2016-12-31 20:00] VITALS: BP 135/64
[2016-12-31] MEDS: MONTELUKAST 10 MG TAB PO SCH (20:47)
[2016-12-31] MEDS: TAMSULOSIN 0.4 MG CAP PO SCH (20:49)
[2017-01-01] MEDS: IPRATROPIUM 0.5MG/ALBUTEROL 2.5MG INH SOL UD 3ML (DUONEB)(J7620) NEB SCH ×3 (02:00→13:40)
[2017-01-01 06:00] VITALS: BP 135/75
[2017-01-01] MEDS: SYMBICORT 160/4.5MCG INHALER 6GM INH SCH ×3 (07:07→19:56)
[2017-01-01] MEDS: NADOLOL 20MG TABLET PO SCH (08:28)
[2017-01-01] MEDS: PREGABALIN 50 MG CAP (LYRICA) PO SCH ×2 (08:28→21:10)
[2017-01-01] MEDS: SODIUM CHLORIDE 1 GM TAB PO SCH ×2 (08:28→21:10)
[2017-01-01] MEDS: ASCORBIC ACID 500 MG TAB PO SCH ×2 (08:28→21:09)
[2017-01-01] MEDS: SENOKOT S TAB PO SCH ×2 (08:28→21:10)
[2017-01-01] MEDS: APIXABAN 5 MG TAB (ELIQUIS) PO SCH ×2 (08:28→21:10)
[2017-01-01] MEDS: VITAMIN D 1,000 INTERNATIONAL UNITS TABLET PO SCH (08:28)
[2017-01-01] MEDS: traMADol 50 MG TAB PO PRN (08:29)
--- NOTE | 2017-01-01 12:39 | IPNPDOC ---
Date Seen The patient was seen on 01/01/17. Progress Note HPI: 71year old F who experienced mechanical fall 12/19/16 sustaining Rt ankle fracture, S/P ORIF as per Orthopedics 12/24/16. Pt was transferred to the care of AVERY Garcia 12/25/16. No acute medical complaints today. Denies any fevers, chills, weakness, fatigue, Headache, Chest Pain, Shortness of breath, cough, palpitations, abdominal pain, N/V/D or changes in bowel or bladder habits. PMHx: HTN Asthma Atrial fibrillation H/O cervical Ca M Obesity. BMI 57.9 PSHX: Mechanical fall/Rt ankle fracture/ORIF 12/24/16 hysterectomy back surgery PE: GEN: 71yoF, appears stated age. Well-nourished, well developed. No acute distress. Alert and oriented x 3. Pleasant, interactive. HEENT: Normocephalic, atraumatic. Pupils are equal, round, and reactive to light. Extraocular movements are intact. No nystagmus appreciated. Sclera are nonicteric. Conjunctiva without injection. Nose midline. Nasal turbinates without bogginess. EACs both patent BL. TMs both visualized and beard with good cone of light, no bulging or erythema. No facial asymmetry. Moist mucous membranes. Dentition fair. Pharynx pink and moist, no cobblestoning. Neck supple , trachea midline. No lymphadenopathy or thyromegaly appreciated. CHEST: Regular rate and rhythm, +S1, +S2 LUNGS: Clear to auscultation bilaterally. No wheezes, rales, or rhonchi. Breathing appears symmetric and easy. Patient is speaking in full sentences. No accessory muscle use. ABD: Round, soft, non-tender, non-distended. +Bowel sounds throughout. No rebound or guarding. No costovertebral angle tenderness. Jay catheter. EXT: No lower extremity edema appreciated. cast RLE. SKIN: [place], dry, warm. Capillary refill <2sec. No rashes. NEURO: Alert and oriented x 3. Cranial nerves III-XII are intact. No focal deficits appreciated. CT A/P 12/23/16 1. Mild right-sided hydroureteronephrosis and distended bladder without obvious cause. Stable 3 mm nonobstructing right renal calculus. Normal appearance to the left kidney/ureter. 2. Colonic diverticulosis without acute diverticulitis. 3. Small focus of left basilar atelectasis/consolidation may warrant followup chest CT at 3 months A&P: 71year old F who experienced mechanical fall 12/19/16 sustaining Rt ankle fracture, S/P ORIF as per Orthopedics 12/24/16. Pt was transferred to the care of AVERY Garcia 12/25/16. 1. Mechanical fall 12/19/16/ Rt ankle fracture S/P ORIF as per Orthopedics . Mgmt as per Dr Sp VARELA. PT/OT as per Dr Snowden. Pain control as per Dr Snowden. Bowel care as per Dr Snowden. DVT prophylaxis. Pt on Eliquis. 2. Rt hydronephrosis CT 12/23/16. Urinary retention. Seen in consultation by Urology 12/23/16. Jay d/cd. Flomax added. SCr returned to baseline. UC 12/20 and neg. Renal U/S 12/24 unremarkable, no hydronephrosis. Plan for outpt F/U with Urology to consider Urodynamics studies. 3. Left basilar consolidation. CT 12/23/16. Recommendation for F/U CT 3 months. 4. HTN. BP controlled. HCTZ/Triamterene and Irbesartan on hold. Monitor. 5. Asthma. Ventolin prn, Nebs prn. Symbicort/Singulair. 6. A Fib. Rate control Nadolol daily. Eliquis anticoagulation. 7. H/O cervical Ca. 8. M Obesity. BMI 57.9. Complicates care. 9. Anemia. Hgb 9.1, trending upward. Monitor. CBC in AM. Check Fe studies, B12, folate. 10. Hyponatremia. remains on NaCl tabs. Trend upward. Monitor. CMP in AM. VS, I&O, 24H, Fishbone Vital Signs/I&O Vital Signs Date Time Temp Pulse Resp B/P (MAP) Pulse Ox O2 Delivery O2 Flow Rate FiO2 01/01/17 08:59 20 01/01/17 08:29 Room Air 01/01/17 08:28 81 135/75 01/01/17 06:00 97.5 95 I&O- Last 24 Hours up to 6 AM 01/01/17 06:00 Intake Total 1080 ml Output Total 1500 ml Balance -420 ml Ava Osman Jan 01, 2017 12:39
--- NOTE | 2017-01-01 12:44 | IPNPDOC ---
Radiology Supervisor Progress Note DATE OF SERVICE: 01/01/17 DATE OF ADMISSION: Dec 25, 2016 at 16:00 INPATIENT REHABILITATION ADMISSION DAY: #8 SUBJECTIVE: Patient is a 71-year-old white female with right distal fibular fracture, status post ORIF then casted. Patient's case complicated by morbid obesity with inadequate arm strength, moderate anemia, periods of Atrial Fibrillation and respiratory problems including asthma and obstructive sleep apnea. Patient reports having good pain control. No other complaints. ALLERGIES: See Below MEDICATIONS: Reviewed, see below. OBJECTIVE: VITAL SIGNS: Please see below. PHYSICAL EXAMINATION: GENERAL: Morbidly obese average height elderly white female who is pleasant and in good spirits. Patient appears to be in very mild musculoskeletal distress. HEENT: Normocephalic/atraumatic. CARDIOVASCULAR: Regular rate and rhythm with normal S1-S2 without S3-S4 murmurs or rubs. 2/4 bilateral radial pulses. LUNGS: All woods clear to auscultation. ABDOMEN: Obese with normal bowel sounds in all quadrants. NEUROLOGICAL: Alert and oriented 4. Speech is clear coherent and appropriate. Patient making good progress using bilateral upper and left lower extremity though unable to lift weight with upper extremities at this time. SKIN: Surgical incision under short leg cast. No drainage noted into the cast wall. ecchymosis down in left lateral thigh and left ankle. LABORATORY DATA: Reviewed. Please see below. MICROBIOLOGY: Please see below. IMAGING: No new imaging. DVT prophylaxis ordered?: JOHANNA hose on the left lower extremity and patient back on [facility]. ASSESSMENT AND PLAN: 1. Rehabilitation of debility related to right fibular fracture with multiple medical problems as noted above: Patient starting her therapy with physical and occupational therapy we will be monitoring blood pressure and oxygen. Initial training will be for wheelchair ADLs and mobility and try and transition as much as possible to learning walker mobility and ADLs. Patient doing better with walker adjustments, but needs additional PT/OT training and conditioning. Pain medications changed to Tramadol by Orthopedics. Anticipated Date of Discharge to Home is January 04, 2017. Cast got damp during shower training, but was reinforced with fiberglass casting. Rehab. Team Rounds: Patient remains limited in using devices for left legged gaiting. For now, we will focus on W/C mobility and ADL's karo. toilet transfers and anticipate discharge to home with family for January 04. 2. Moderate anemia: H&H is 9.1 & 27.3% Sunday, which is stable. 3. Hyponatremia: Currently this is very mild, better at 135 Sunday. NaCl tabs seems to help get the level up. 4. Hypoalbuminemia: We will try to work with patient to improve nutrition rebuild this which will help with healing the fracture and recovering from the anemia. TIME SPENT: Chart Review, examination and documentation required greater than 35 minutes. Allergies Coded Allergies: Contrast Media (Verified Allergy, Intermediate, 10/17/16) rash Vital Signs Vital Signs Date Time Temp Pulse Resp B/P (MAP) Pulse Ox O2 Delivery O2 Flow Rate FiO2 01/01/17 08:59 20 01/01/17 08:29 Room Air 01/01/17 08:28 81 135/75 01/01/17 06:00 97.5 95 Current Medications Current Medications Current Medications Acetaminophen (Tylenol Tab) 650 mg Q6HP PRN PO PAIN OR FEVER Last administered on 12/29/16 21:16; Start 12/25/16 at 16:30; Stop 01/24/17 at 16:29 Albuterol/ Ipratropium (Duoneb (Ipr 0.5mg/Alb 2.5mg)) 3 ml Q2HP PRN NEB SOB/ WHEEZING; Start 12/25/16 at 16:30; Stop 01/24/17 at 16:29 Albuterol/ Ipratropium (Duoneb (Ipr 0.5mg/Alb 2.5mg)) 3 ml RQ6H NEB Last administered on 12/31/16 15:34; Start 12/25/16 at 20:00; Stop 01/24/17 at 19:59 Apixaban (Eliquis) 5 mg BID PO Last administered on 01/01/17 08:28; Start 04/03 at 21:00; Stop 01/06/17 at 23:55 Ascorbic Acid (Vitamin C) 500 mg BID PO Last administered on 01/01/17 08:28; Start 12/25/16 at 21:00; Stop 01/24/17 at 20:59 Bisacodyl (Dulcolax Tab) 10 mg DAILYPRN PRN PO CONSTIPATION; Start 12/28/16 at 09:45; Stop 01/27/17 at 09:44 Budesonide/ Formoterol Fumarate (Symbicort 160/ 4.5mcg) 2 puff BID INH Last administered on 01/01/17 07:07; Start 12/25/16 at 21:00; Stop 01/01/17 at 10:42 ; Status DC Budesonide/ Formoterol Fumarate (Symbicort 160/ 4.5mcg) 2 puff BIDP PRN INH DYSPNEA; Start 01/01/17 at 21:00; Stop 01/24/17 at 20:59 Magnesium Hydroxide (Milk Of Magnesia) 30 ml DAILYPRN PRN PO CONSTIPATION; Start 12/25/16 at 16:30; Stop 01/24/17 at 16:29 Montelukast Sodium (Singulair) 10 mg QHS PO Last administered on 12/31/16 20: 47; Start 12/25/16 at 21:00; Stop 01/24/17 at 20:59 Nadolol (Corgard) 40 mg DAILY PO Last administered on 01/01/17 08:28; Start at 09:00; Stop 01/25/17 at 08:59 Oxycodone HCl (Roxicodone, Oxyir) 5 mg Q4HP PRN PO PAIN 5-7; Start 12/25/16 at 16:30; Stop 01/03/17 at 23:55; Status Cancel Oxycodone HCl (Roxicodone, Oxyir) 10 mg Q4HP PRN PO SEVERE PAIN (PS 8-10); Start 12/25/16 at 16:30; Stop 01/03/17 at 23:55; Status Cancel Polyethylene Glycol (Miralax) 1 pkt DAILY PRN PO CONSTIPATION; Start 12/25/16 at 16:30; Stop 01/24/17 at 16:29 Pregabalin (Lyrica) 50 mg BID PO Last administered on 01/01/17 08:28; Start at 21:00; Stop 01/05/17 at 23:55 Senna/Docusate Sodium (Senokot S) 1 tab BID PO Last administered on 01/01/17 08:28; Start 12/25/16 at 21:00; Stop 01/24/17 at 20:59 Sodium Biphosphate/ Sodium Phosphate (Fleet Enema) 1 ea DAILYPRN PRN [place] CONSTIPATION; Start 12/25/16 at 16:30; Stop 01/24/17 at 16:29 Sodium Chloride (Sodium Chloride) 1 gm BID PO Last administered on 01/01/17 08 :28; Start 12/27/16 at 09:00; Stop 01/05/17 at 08:59 Tamsulosin HCl (Flomax) 0.4 mg QHS PO Last administered on 12/31/16 20:49; Start 12/25/16 at 21:00; Stop 01/24/17 at 20:59 Tramadol HCl (Ultram) 50 mg Q4HP PRN PO MILD PAIN (PS 1-4) Last administered on 01/01/17 08:29; Start 12/26/16 at 17:15; Stop 01/05/17 at 23:55 Tramadol HCl (Ultram) 100 mg Q6HP PRN PO MODERATE PAIN (PS 5-7) Last administered on 12/31/16 20:49; Start 12/26/16 at 17:15; Stop 01/05/17 at 23:55 Vitamin D (Vitamin D) 1,000 units DAILY PO Last administered on 01/01/17 08:28 ; Start 12/26/16 at 09:00; Stop 01/25/17 at 08:59 WILIAM PRETTY MD Jan 01, 2017 12:44
[2017-01-01 14:00] VITALS: BP 139/67
[2017-01-01 20:00] VITALS: BP 157/69
[2017-01-01] MEDS ORDERED: SYMBICORT 160/4.5MCG INHALER 6GM INH PRN (21:00)
[2017-01-01] MEDS: MONTELUKAST 10 MG TAB PO SCH (21:09)
[2017-01-01] MEDS: TAMSULOSIN 0.4 MG CAP PO SCH (21:09)
[2017-01-02 06:00] VITALS: BP 116/58
[2017-01-02 06:51] LABS: MEAN CORPUSCULAR HEMOGLOBIN 31.3 pg (27.0-33.0); MEAN CORPUSCULAR HGB CONC 33.3 g/dl (32.0-36.5); RED CELL DISTRIBUTION WIDTH 13.9 % (11.5-14.5); WHITE BLOOD COUNT 6.1 K/mm3 (4.0-10.0)
[2017-01-02 07:24] LABS: ALBUMIN 2.7 GM/DL (3.2-5.2); ALKALINE PHOSPHATASE 50 U/L (45-117); ALT/SGPT 15 U/L (12-78); ANION GAP 9 MEQ/L (8-16); AST/SGOT 14 U/L (15-37); BILIRUBIN,TOTAL 0.7 MG/DL (0.2-1.0); BLOOD UREA NITROGEN 9 MG/DL (7-18); CALCIUM LEVEL 8.7 MG/DL (8.8-10.2); CARBON DIOXIDE LEVEL 26 MEQ/L (21-32); CHLORIDE LEVEL 103 MEQ/L (98-107); CREATININE FOR GFR 0.55 MG/DL (0.55-1.02); FERRITIN 216 NG/ML (8-252); GLOMERULAR FILTRATION RATE > 60.0 (>39); GLUCOSE, FASTING 82 MG/DL (83-110); PERCENT SATURATION 13.3 % (13.2-37.4); POTASSIUM SERUM 3.5 MEQ/L (3.5-5.1); SODIUM LEVEL 138 MEQ/L (136-145); TOTAL IRON BINDING CAPACITY 248 UG/DL (250-450); TOTAL PROTEIN 5.7 GM/DL (6.4-8.2)
[2017-01-02 08:28] LABS: VITAMIN B12 LEVEL 382 PG/ML (247-911)
[2017-01-02] MEDS: SODIUM CHLORIDE 1 GM TAB PO SCH (08:40)
[2017-01-02] MEDS: PREGABALIN 50 MG CAP (LYRICA) PO SCH ×2 (08:41→21:42)
[2017-01-02] MEDS: SENOKOT S TAB PO SCH ×2 (08:41→21:00)
[2017-01-02] MEDS: ASCORBIC ACID 500 MG TAB PO SCH ×2 (08:41→21:42)
[2017-01-02] MEDS: NADOLOL 20MG TABLET PO SCH (08:41)
[2017-01-02] MEDS: APIXABAN 5 MG TAB (ELIQUIS) PO SCH ×2 (08:41→21:42)
[2017-01-02] MEDS: VITAMIN D 1,000 INTERNATIONAL UNITS TABLET PO SCH (08:41)
[2017-01-02] MEDS: traMADol 50 MG TAB PO PRN (08:43)
[2017-01-02] MEDS: SYMBICORT 160/4.5MCG INHALER 6GM INH SCH ×2 (09:00→21:59)
--- NOTE | 2017-01-02 12:32 | IPNPDOC ---
Patrol Supervisor Progress Note DATE OF SERVICE: 01/02/17 DATE OF ADMISSION: Dec 25, 2016 at 16:00 INPATIENT REHABILITATION ADMISSION DAY: #9 SUBJECTIVE: Patient is a 71-year-old white female with right distal fibular fracture, status post ORIF then casted. Patient's case complicated by morbid obesity with inadequate arm strength, moderate anemia, periods of Atrial Fibrillation and respiratory problems including asthma and obstructive sleep apnea. Patient reports having good pain control. No other complaints. ALLERGIES: See Below MEDICATIONS: Reviewed, see below. OBJECTIVE: VITAL SIGNS: Please see below. PHYSICAL EXAMINATION: GENERAL: Morbidly obese average height elderly white female who is pleasant and in good spirits. Patient appears to be in very mild musculoskeletal distress. HEENT: Normocephalic/atraumatic. CARDIOVASCULAR: Regular rate and rhythm with normal S1-S2. 2/4 bilateral radial pulses. LUNGS: All woods clear to auscultation. ABDOMEN: Obese with normal bowel sounds in all quadrants. NEUROLOGICAL: Alert and oriented 4. Speech is clear coherent and appropriate. Patient making good progress using bilateral upper and left lower extremity though unable to lift weight with upper extremities at this time. SKIN: Surgical incision under short leg cast. No drainage noted into the cast wall. ecchymosis down in left lateral thigh and left ankle. LABORATORY DATA: Reviewed. Please see below. MICROBIOLOGY: Please see below. IMAGING: No new imaging. DVT prophylaxis ordered?: JOHANNA hose on the left lower extremity and patient back on Eliquis. ASSESSMENT AND PLAN: 1. Rehabilitation of debility related to right fibular fracture with multiple medical problems as noted above: Patient in physical and occupational therapy. We are monitoring blood pressure and oxygen. Initial training has been for wheelchair ADLs and mobility and try and transition as much as possible to learning walker mobility and ADLs, but this is limited due to BUE strength. Patient needs additional PT/OT training and conditioning. Pain medications changed to Tramadol by Orthopedics. Cast got damp during shower training, but was reinforced with fiberglass casting. Patient remains limited in using devices for left legged gaiting. For now, we are focused on W/C mobility and ADL 's karo. toilet transfers and anticipate discharge to home with family for January 04. 2. Moderate anemia: H&H is 9.1 & 27.3% today, which is stable. 3. Hyponatremia: Currently this is better at 138 Sunday. NaCl tabs seems to help get the level up, I will decrease to daily now. 4. Hypoalbuminemia: We will try to work with patient to improve nutrition rebuild this which will help with healing the fracture and recovering from the anemia. Albumin 2.7 today, which is improved TIME SPENT: Chart Review, examination and documentation required greater than 20 minutes. Allergies Coded Allergies: Contrast Media (Verified Allergy, Intermediate, 10/17/16) rash Vital Signs Vital Signs Date Time Temp Pulse Resp B/P (MAP) Pulse Ox O2 Delivery O2 Flow Rate FiO2 01/02/17 09:13 20 01/02/17 08:43 Room Air 01/02/17 08:41 76 116/58 01/02/17 06:00 98.0 93 Laboratory Data CBC/BMP Laboratory Tests 01/02/17 06:22 Red Blood Count 2.76 L, Mean Corpuscular Volume 94.0, Mean Corpuscular Hemoglobin 31.3, Mean Corpuscular Hemoglobin Concent 33.3, Red Cell Distribution Width 13.9, Calcium Level 8.7 L, Aspartate Amino Transf (AST/SGOT) 14 L, Alanine Aminotransferase (ALT/SGPT) 15, Alkaline Phosphatase 50, Total Bilirubin 0.7, Total Protein 5.7 L, Albumin 2.7 L Labs 24H Laboratory Tests 2 01/02/17 06:22: Anion Gap 9, Glomerular Filtration Rate > 60.0, Blood Urea Nitrogen 9, Creatinine 0.55, Sodium Level 138, Potassium Level 3.5, Chloride Level 103, Carbon Dioxide Level 26, Calcium Level 8.7L, Aspartate Amino Transf (AST/SGOT) 14L, Alanine Aminotransferase (ALT/SGPT) 15, Alkaline Phosphatase 50, Total Bilirubin 0.7, Total Protein 5.7L, Albumin 2.7L, Iron Level 33L, Total Iron Binding Capacity 248L, Transferrin % Saturation 13.3, Ferritin 216, Albumin/ Globulin Ratio 0.90L, Vitamin B12 Level 382, Folate 13.0 Current Medications Current Medications Current Medications Acetaminophen (Tylenol Tab) 650 mg Q6HP PRN PO PAIN OR FEVER Last administered on 12/29/16t 21:16; Start 12/25/16 at 16:30; Stop 01/24/17 at 16:29 Albuterol/ Ipratropium (Duoneb (Ipr 0.5mg/Alb 2.5mg)) 3 ml Q2HP PRN NEB SOB/ WHEEZING; Start 12/25/16 at 16:30; Stop 01/24/17 at 16:29 Albuterol/ Ipratropium (Duoneb (Ipr 0.5mg/Alb 2.5mg)) 3 ml RQ6H NEB Last administered on 01/01/17 13:40; Start 12/25/16 at 20:00; Stop 01/01/17 at 13:54 ; Status DC Apixaban (Eliquis) 5 mg BID PO Last administered on 01/02/17 08:41; Start 04/03 at 21:00; Stop 01/06/17 at 23:55 Ascorbic Acid (Vitamin C) 500 mg BID PO Last administered on 01/02/17 08:41; Start 12/25/16 at 21:00; Stop 01/24/17 at 20:59 Bisacodyl (Dulcolax Tab) 10 mg DAILYPRN PRN PO CONSTIPATION; Start 12/28/16 at 09:45; Stop 01/27/17 at 09:44 Budesonide/ Formoterol Fumarate (Symbicort 160/ 4.5mcg) 2 puff BID INH Last administered on 01/01/17 07:07; Start 12/25/16 at 21:00; Stop 01/01/17 at 10:42 ; Status DC Budesonide/ Formoterol Fumarate (Symbicort 160/ 4.5mcg) 2 puff BID INH Last administered on 01/01/17 19:56; Start 01/01/17 at 09:00; Stop 01/24/17 at 08:59 Budesonide/ Formoterol Fumarate (Symbicort 160/ 4.5mcg) 2 puff BIDP PRN INH DYSPNEA; Start 01/01/17 at 21:00; Stop 01/01/17 at 21:00; Status DC Magnesium Hydroxide (Milk Of Magnesia) 30 ml DAILYPRN PRN PO CONSTIPATION; Start 12/25/16 at 16:30; Stop 01/24/17 at 16:29 Montelukast Sodium (Singulair) 10 mg QHS PO Last administered on 01/01/17 21: 09; Start 12/25/16 at 21:00; Stop 01/24/17 at 20:59 Nadolol (Corgard) 40 mg DAILY PO Last administered on 01/02/17 08:41; Start at 09:00; Stop 01/25/17 at 08:59 Oxycodone HCl (Roxicodone, Oxyir) 5 mg Q4HP PRN PO PAIN 5-7; Start 12/25/16 at 16:30; Stop 01/03/17 at 23:55; Status Cancel Oxycodone HCl (Roxicodone, Oxyir) 10 mg Q4HP PRN PO SEVERE PAIN (PS 8-10); Start 12/25/16 at 16:30; Stop 01/03/17 at 23:55; Status Cancel Polyethylene Glycol (Miralax) 1 pkt DAILY PRN PO CONSTIPATION; Start 12/25/16 at 16:30; Stop 01/24/17 at 16:29 Pregabalin (Lyrica) 50 mg BID PO Last administered on 01/02/17 08:41; Start at 21:00; Stop 01/05/17 at 23:55 Senna/Docusate Sodium (Senokot S) 1 tab BID PO Last administered on 01/01/17 21:10; Start 12/25/16 at 21:00; Stop 01/24/17 at 20:59 Sodium Biphosphate/ Sodium Phosphate (Fleet Enema) 1 ea DAILYPRN PRN [place] CONSTIPATION; Start 12/25/16 at 16:30; Stop 01/24/17 at 16:29 Sodium Chloride (Sodium Chloride) 1 gm BID PO Last administered on 01/02/17 08 :40; Start 12/27/16 at 09:00; Stop 01/05/17 at 08:59 Tamsulosin HCl (Flomax) 0.4 mg QHS PO Last administered on 01/01/17 21:09; Start 12/25/16 at 21:00; Stop 01/24/17 at 20:59 Tramadol HCl (Ultram) 50 mg Q4HP PRN PO MILD PAIN (PS 1-4) Last administered on 01/02/17 08:43; Start 12/26/16 at 17:15; Stop 01/05/17 at 23:55 Tramadol HCl (Ultram) 100 mg Q6HP PRN PO MODERATE PAIN (PS 5-7) Last administered on 12/31/16 20:49; Start 12/26/16 at 17:15; Stop 01/05/17 at 23:55 Vitamin D (Vitamin D) 1,000 units DAILY PO Last administered on 01/02/17 08:41 ; Start 12/26/16 at 09:00; Stop 01/25/17 at 08:59 WILIAM PRETTY MD Jan 02, 2017 12:32
[2017-01-02 14:00] VITALS: BP 147/74
[2017-01-02] MEDS: ACETAMINOPHEN TAB 650MG DOSE (2X325MG) PO PRN (16:21)
[2017-01-02 21:00] VITALS: BP 138/72
[2017-01-02] MEDS: TAMSULOSIN 0.4 MG CAP PO SCH (21:41)
[2017-01-02] MEDS: MONTELUKAST 10 MG TAB PO SCH (21:42)
[2017-01-03 06:00] VITALS: BP 130/62
[2017-01-03] MEDS: traMADol 50 MG TAB PO PRN (06:33)
[2017-01-03] MEDS: SYMBICORT 160/4.5MCG INHALER 6GM INH SCH ×2 (07:57→20:35)
[2017-01-03] MEDS: SODIUM CHLORIDE 1 GM TAB PO SCH (09:47)
[2017-01-03] MEDS: VITAMIN D 1,000 INTERNATIONAL UNITS TABLET PO SCH (09:47)
[2017-01-03] MEDS: ASCORBIC ACID 500 MG TAB PO SCH ×2 (09:47→20:50)
[2017-01-03] MEDS: PREGABALIN 50 MG CAP (LYRICA) PO SCH ×2 (09:47→20:50)
[2017-01-03] MEDS: APIXABAN 5 MG TAB (ELIQUIS) PO SCH ×2 (09:47→20:50)
[2017-01-03] MEDS: SENOKOT S TAB PO SCH ×2 (09:48→20:50)
[2017-01-03] MEDS: NADOLOL 20MG TABLET PO SCH (09:48)
--- NOTE | 2017-01-03 13:14 | IPNPDOC ---
[facility] Progress Note DATE OF SERVICE: 01/03/17 DATE OF ADMISSION: Dec 25, 2016 at 16:00 INPATIENT REHABILITATION ADMISSION DAY: #10 SUBJECTIVE: Patient is a 71-year-old white female with right distal fibular fracture, status post ORIF then casted. Patient's case complicated by morbid obesity with inadequate arm strength, moderate anemia, periods of Atrial Fibrillation and respiratory problems including asthma and obstructive sleep apnea. Patient reports having good pain control. No other complaints. ALLERGIES: See Below MEDICATIONS: Reviewed, see below. OBJECTIVE: VITAL SIGNS: Please see below. PHYSICAL EXAMINATION: GENERAL: Morbidly obese average height elderly white female who is pleasant and in good spirits. Patient appears to be in very mild musculoskeletal distress. HEENT: Normocephalic/atraumatic. CARDIOVASCULAR: Regular rate and rhythm with normal S1-S2. 2/4 bilateral radial pulses. LUNGS: All woods clear to auscultation. ABDOMEN: Obese with normal bowel sounds in all quadrants. NEUROLOGICAL: Alert and oriented 4. Speech is clear coherent and appropriate. Patient making good progress using bilateral upper and left lower extremity though unable to lift weight with upper extremities at this time. SKIN: Surgical incision under short leg cast. No drainage noted into the cast wall. ecchymosis down in left lateral thigh and left ankle improving. Some new right toe blisters. LABORATORY DATA: Reviewed. Please see below. MICROBIOLOGY: Please see below. IMAGING: No new imaging. DVT prophylaxis ordered?: JOHANNA hose on the left lower extremity and patient back on Eliquis. ASSESSMENT AND PLAN: 1. Rehabilitation of debility related to right fibular fracture with multiple medical problems as noted above: Patient in physical and occupational therapy. We are monitoring blood pressure and oxygen. Initial training has been for wheelchair ADLs and mobility and try and transition as much as possible to learning walker mobility and ADLs, but this is limited due to BUE strength. Patient needs additional PT/OT training and conditioning. Pain medications changed to Tramadol by Orthopedics and has been effective. Cast to be redone after discharge due to recent wetting in the shower with the plastic bag failing. Patient remains limited in using devices for left legged gaiting. For now, we are focused on W/C mobility and ADL's karo. toilet transfers and anticipate discharge to home with family for January 04. 2. Moderate anemia: H&H is 9.1 & 27.3% yesterday, which is stable. 3. Hyponatremia: Currently this is better at 138 Sunday. NaCl tabs seems to help get the level up, I will decrease to daily now. 4. Hypoalbuminemia: We will try to work with patient to improve nutrition rebuild this which will help with healing the fracture and recovering from the anemia. Albumin 2.7 yesterdayday, which was improved TIME SPENT: Chart Review, examination and documentation required greater than 25 minutes. Allergies Coded Allergies: Contrast Media (Verified Allergy, Intermediate, 10/17/16) rash Vital Signs Vital Signs Date Time Temp Pulse Resp B/P (MAP) Pulse Ox O2 Delivery O2 Flow Rate FiO2 01/03/17 09:48 76 130/62 01/03/17 09:00 Room Air 01/03/17 07:03 18 01/03/17 06:00 98.3 93 Current Medications Current Medications Current Medications Acetaminophen (Tylenol Tab) 650 mg Q6HP PRN PO PAIN OR FEVER Last administered on 01/02/17 16:21; Start 12/25/16 at 16:30; Stop 01/24/17 at 16:29 Albuterol/ Ipratropium (Duoneb (Ipr 0.5mg/Alb 2.5mg)) 3 ml Q2HP PRN NEB SOB/ WHEEZING; Start 12/25/16 at 16:30; Stop 01/24/17 at 16:29 Albuterol/ Ipratropium (Duoneb (Ipr 0.5mg/Alb 2.5mg)) 3 ml RQ6H NEB Last administered on 01/01/17 13:40; Start 12/25/16 at 20:00; Stop 01/01/17 at 13:54 ; Status DC Apixaban (Eliquis) 5 mg BID PO Last administered on 01/03/17 09:47; Start 04/03 at 21:00; Stop 01/06/17 at 23:55 Ascorbic Acid (Vitamin C) 500 mg BID PO Last administered on 01/03/17 09:47; Start 12/25/16 at 21:00; Stop 01/24/17 at 20:59 Bisacodyl (Dulcolax Tab) 10 mg DAILYPRN PRN PO CONSTIPATION; Start 12/28/16 at 09:45; Stop 01/27/17 at 09:44 Budesonide/ Formoterol Fumarate (Symbicort 160/ 4.5mcg) 2 puff BID INH Last administered on 01/01/17 07:07; Start 12/25/16 at 21:00; Stop 01/01/17 at 10:42 ; Status DC Budesonide/ Formoterol Fumarate (Symbicort 160/ 4.5mcg) 2 puff BID INH Last administered on 01/03/17 07:57; Start 01/01/17 at 09:00; Stop 01/24/17 at 08:59 Budesonide/ Formoterol Fumarate (Symbicort 160/ 4.5mcg) 2 puff BIDP PRN INH DYSPNEA; Start 01/01/17 at 21:00; Stop 01/01/17 at 21:00; Status DC Magnesium Hydroxide (Milk Of Magnesia) 30 ml DAILYPRN PRN PO CONSTIPATION; Start 12/25/16 at 16:30; Stop 01/24/17 at 16:29 Montelukast Sodium (Singulair) 10 mg QHS PO Last administered on 01/02/17 21: 42; Start 12/25/16 at 21:00; Stop 01/24/17 at 20:59 Nadolol (Corgard) 40 mg DAILY PO Last administered on 01/03/17 09:48; Start at 09:00; Stop 01/25/17 at 08:59 Oxycodone HCl (Roxicodone, Oxyir) 5 mg Q4HP PRN PO PAIN 5-7; Start 12/25/16 at 16:30; Stop 01/03/17 at 23:55; Status Cancel Oxycodone HCl (Roxicodone, Oxyir) 10 mg Q4HP PRN PO SEVERE PAIN (PS 8-10); Start 12/25/16 at 16:30; Stop 01/03/17 at 23:55; Status Cancel Polyethylene Glycol (Miralax) 1 pkt DAILY PRN PO CONSTIPATION; Start 12/25/16 at 16:30; Stop 01/24/17 at 16:29 Pregabalin (Lyrica) 50 mg BID PO Last administered on 01/03/17 09:47; Start at 21:00; Stop 01/05/17 at 23:55 Senna/Docusate Sodium (Senokot S) 1 tab BID PO Last administered on 01/01/17 21:10; Start 12/25/16 at 21:00; Stop 01/24/17 at 20:59 Sodium Biphosphate/ Sodium Phosphate (Fleet Enema) 1 ea DAILYPRN PRN [place] CONSTIPATION; Start 12/25/16 at 16:30; Stop 01/24/17 at 16:29 Sodium Chloride (Sodium Chloride) 1 gm BID PO Last administered on 01/02/17 08 :40; Start 12/27/16 at 09:00; Stop 01/02/17 at 12:28; Status DC Sodium Chloride (Sodium Chloride) 1 gm DAILY PO Last administered on 01/03/17 09:47; Start 01/03/17 at 09:00; Stop 01/05/17 at 08:59 Tamsulosin HCl (Flomax) 0.4 mg QHS PO Last administered on 01/02/17 21:41; Start 12/25/16 at 21:00; Stop 01/24/17 at 20:59 Tramadol HCl (Ultram) 50 mg Q4HP PRN PO MILD PAIN (PS 1-4) Last administered on 01/03/17 06:33; Start 12/26/16 at 17:15; Stop 01/05/17 at 23:55 Tramadol HCl (Ultram) 100 mg Q6HP PRN PO MODERATE PAIN (PS 5-7) Last administered on 12/31/16 20:49; Start 12/26/16 at 17:15; Stop 01/05/17 at 23:55 Vitamin D (Vitamin D) 1,000 units DAILY PO Last administered on 01/03/17 09:47 ; Start 12/26/16 at 09:00; Stop 01/25/17 at 08:59 WILIAM PRETTY MD Jan 03, 2017 13:14
[2017-01-03 14:00] VITALS: BP 139/65
[2017-01-03 20:00] VITALS: BP 140/68
[2017-01-03] MEDS: TAMSULOSIN 0.4 MG CAP PO SCH (20:50)
[2017-01-03] MEDS: MONTELUKAST 10 MG TAB PO SCH (20:50)
[2017-01-04 06:00] VITALS: BP 132/62
[2017-01-04] MEDS: SYMBICORT 160/4.5MCG INHALER 6GM INH SCH ×2 (07:25→20:44)
[2017-01-04] MEDS: IPRATROPIUM 0.5MG/ALBUTEROL 2.5MG INH SOL UD 3ML (DUONEB)(J7620) NEB PRN ×2 (07:25→18:21)
[2017-01-04] MEDS ORDERED: SODI1TA PO (09:50)
[2017-01-04] MEDS ORDERED: TRAM50TA2 PO (09:50)
[2017-01-04] MEDS ORDERED: PREG50CA PO (09:50)
[2017-01-04] MEDS: VITAMIN D 1,000 INTERNATIONAL UNITS TABLET PO SCH (10:04)
[2017-01-04] MEDS: NADOLOL 20MG TABLET PO SCH (10:04)
[2017-01-04] MEDS: SODIUM CHLORIDE 1 GM TAB PO SCH (10:04)
[2017-01-04] MEDS: ACETAMINOPHEN TAB 650MG DOSE (2X325MG) PO PRN (10:04)
[2017-01-04] MEDS: APIXABAN 5 MG TAB (ELIQUIS) PO SCH ×2 (10:05→20:31)
[2017-01-04] MEDS: SENOKOT S TAB PO SCH ×2 (10:05→20:31)
[2017-01-04] MEDS: PREGABALIN 50 MG CAP (LYRICA) PO SCH ×2 (10:05→20:31)
[2017-01-04] MEDS: ASCORBIC ACID 500 MG TAB PO SCH ×2 (10:05→20:31)
--- NOTE | 2017-01-04 10:22 | REP ---
CHEST X-RAY: Two views. HISTORY: Dyspnea. Right base wheezing. COMPARISON STUDY: December 20, 2016. FINDINGS: The lungs are somewhat hyperinflated. There is moderate cardiac enlargement. Interstitial markings are somewhat prominent in the bases and there appear to be several Roger B lines. Pulmonary vasculature is not increased. The thoracic spine shows a fairly marked dextroconvex curvature as before. No focal infiltrate is seen. There are periarticular calcifications associated with the shoulder joints bilaterally. IMPRESSION: Cardiomegaly. Possible interstitial edema with Roger B lines. Scoliosis and hyperinflation. Signed by Isidro Gordon MD 01/04/2017 04:39 P
[2017-01-04] MEDS ORDERED: FUROSEMIDE 40 MG/4 ML VIAL (J1940) IV ONE (10:45)
[2017-01-04 11:20] LABS: BASO % 0.5 % (0.0-1.0); EOS # 0.1 K/mm3 (0.0-0.50); EOS % 1.5 % (0.0-3.0); LARGE UNSTAINED CELL # 0.1 K/mm3 (0.0-0.4); LARGE UNSTAINED CELL % 1.7 % (0.0-4.0); LYMPH # 0.8 K/mm3 (1.5-4.5); LYMPH % 13.5 % (24.0-44.0); MEAN CORPUSCULAR HEMOGLOBIN 30.9 pg (27.0-33.0); MEAN CORPUSCULAR HGB CONC 32.8 g/dl (32.0-36.5); MEAN CORPUSCULAR VOLUME 94.2 fl (80.0-96.0); MONO # 0.3 K/mm3 (0.0-0.8); MONO % 5.1 % (0.0-5.0); NEUTROPHILS # 4.1 K/mm3 (1.8-7.7); NEUTROPHILS % 77.8 % (36.0-66.0); PLATELET COUNT, AUTOMATED 241 k/mm3 (150-450); RED CELL DISTRIBUTION WIDTH 14.2 % (11.5-14.5); WHITE BLOOD COUNT 5.2 K/mm3 (4.0-10.0)
--- NOTE | 2017-01-04 11:30 | IPNPDOC ---
Date Seen The patient was seen on 01/04/17. Progress Note HPI: 71year old F who experienced mechanical fall 12/19/16 sustaining Rt ankle fracture, S/P ORIF as per Orthopedics 12/24/16. Pt was transferred to the care of AVERY Garcia 12/25/16. Pt reported some SOB this AM, has also noticed some LE edema. Denies any fevers, chills, weakness, fatigue, Headache, Chest Pain, cough, palpitations, abdominal pain, N/V/D or changes in bowel or bladder habits. PMHx: HTN Asthma Atrial fibrillation H/O cervical Ca M Obesity. BMI 57.9 PSHX: Mechanical fall/Rt ankle fracture/ORIF 12/24/16 hysterectomy back surgery PE: GEN: 71yoF, appears stated age. Well-nourished, well developed. No acute distress. Alert and oriented x 3. Pleasant, interactive. HEENT: Normocephalic, atraumatic. Pupils are equal, round, and reactive to light. Extraocular movements are intact. No nystagmus appreciated. Sclera are nonicteric. Conjunctiva without injection. Nose midline. Nasal turbinates without bogginess. EACs both patent BL. TMs both visualized and beard with good cone of light, no bulging or erythema. No facial asymmetry. Moist mucous membranes. Dentition fair. Pharynx pink and moist, no cobblestoning. Neck supple , trachea midline. No lymphadenopathy or thyromegaly appreciated. CHEST: Regular rate and rhythm, +S1, +S2 LUNGS: Few rales bases B/L. No wheezes,or rhonchi. Breathing appears symmetric and easy. Patient is speaking in full sentences. No accessory muscle use. ABD: Round, soft, non-tender, non-distended. +Bowel sounds throughout. No rebound or guarding. No costovertebral angle tenderness. Jay catheter. EXT: 1 mm lower extremity edema appreciated LLE. cast RLE. SKIN: [place], dry, warm. Capillary refill <2sec. No rashes. NEURO: Alert and oriented x 3. Cranial nerves III-XII are intact. No focal deficits appreciated. CT A/P 12/23/16 1. Mild right-sided hydroureteronephrosis and distended bladder without obvious cause. Stable 3 mm nonobstructing right renal calculus. Normal appearance to the left kidney/ureter. 2. Colonic diverticulosis without acute diverticulitis. 3. Small focus of left basilar atelectasis/consolidation may warrant followup chest CT at 3 months A&P: 71year old F who experienced mechanical fall 12/19/16 sustaining Rt ankle fracture, S/P ORIF as per Orthopedics 12/24/16. Pt was transferred to the care of AVERY Garcia 12/25/16. 1. Mechanical fall 12/19/16/ Rt ankle fracture S/P ORIF as per Orthopedics . Mgmt as per Dr Sp VARELA. PT/OT as per Dr Snowden. Pain control as per Dr Snowden. Bowel care as per Dr Snowden. DVT prophylaxis. Pt on Eliquis. 2. Rt hydronephrosis CT 12/23/16. Urinary retention. Seen in consultation by Urology 12/23/16. Jay d/cd. Flomax added. SCr returned to baseline. UC 12/20 and neg. Renal U/S 12/24 unremarkable, no hydronephrosis. Plan for outpt F/U with Urology to consider Urodynamics studies. 3. Left basilar consolidation. CT 12/23/16. Recommendation for F/U CT 3 months. 4. HTN. BP controlled. O2 sats stable. Pt reported SOB this AM, states it is now resolved. CXR result reviewed, discussed with Dr Scruggs. IV Lasix 40 mg x 1 dose today. Restart Triamterene/HCTZ in AM. Irbesartan on hold. Monitor. 5. Asthma. Ventolin prn, Nebs prn. Symbicort/Singulair. 6. A Fib. Rate control Nadolol daily. Eliquis anticoagulation. 7. H/O cervical Ca. 8. M Obesity. BMI 57.9. Complicates care. 9. Anemia. Hgb 9.1, trending upward. Monitor. CBC in AM. Check Fe studies, B12, folate. 10. Hyponatremia. Resolved. Sodium Cl tabs discontinued. CMP pending. VS, I&O, 24H, Fishbone Vital Signs/I&O Vital Signs Date Time Temp Pulse Resp B/P (MAP) Pulse Ox O2 Delivery O2 Flow Rate FiO2 01/04/17 10:04 78 132/62 01/04/17 06:00 98.4 18 92 Room Air I&O- Last 24 Hours up to 6 AM 01/04/17 05:59 Intake Total 1520 ml Balance 1520 ml Ava Osman Jan 04, 2017 11:30
--- NOTE | 2017-01-04 11:42 | IPNPDOC ---
D[facility] Progress Note DATE OF SERVICE: 01/04/17 DATE OF ADMISSION: Dec 25, 2016 at 16:00 INPATIENT REHABILITATION ADMISSION DAY: #11 SUBJECTIVE: Patient is a 71-year-old 8 female with right distal fibula fracture status post open reduction internal fixation complicated by upper extremity weakness and morbid obesity. Patient noting since the last night some dyspnea without any chest pain, fever, chills or cognitive change. Lower extremities with no change still some bilateral ankle pain that is well controlled. Patient denies any anxiousness. ALLERGIES: See Below MEDICATIONS: Reviewed, see below. OBJECTIVE: VITAL SIGNS: Please see below. PHYSICAL EXAMINATION: GENERAL: Morbidly obese 71-year-old white female who is alert and oriented 4. Speech is clear coherent and appropriate. Affect is pleasant and cooperative, but little anxious. Otherwise patient now acute distress. Cast on right lower extremity is intact. No cords felt in the popliteal spaces bilaterally. HEENT: Normocephalic/atraumatic. CARDIOVASCULAR: Regular rate and rhythm with normal S1 and S2 and good referral pulses. LUNGS: Some wheezing in the right base, but otherwise good air movement with no rhonchi or rales. ABDOMEN: Obese, nontender with normal bowel sounds. NEUROLOGICAL: As above with intact motor sensory. SKIN: Blisters on the dorsum of left foot have not started to deflate in spite of the Betadine. But notes signs of infection. LABORATORY DATA: Reviewed. Please see below. MICROBIOLOGY: Please see below. IMAGING: Chest x-ray shows some possible interstitial edema along with her pre- existing scoliosis and cardiac enlargement. DVT prophylaxis ordered?: Patient continues on Eliquis. ASSESSMENT AND PLAN: 1. Rehabilitation of right ankle fracture: Patient is done very well I do not feel based on her ability to do car transfers and wheelchair ability and the support of her that she needs home care therapies especially she does not have any homecare nursing needs. Therefore we will proceed with discharge tomorrow if respiratory issues are cleared and proceed with outpatient physical and occupational therapy. Patient to see orthopedic clinic to have her cast changed tomorrow as well. 2. Edema/dyspnea: Patient seen by Dawson and will have some adjustment of her diuretics but for now IV Lasix to help clear some of the fluid edema buildup. I have stopped sodium chloride tablets in light of the edema. Her hyponatremia will need to be accessed by her PCP following discharge but this time is low normal at 138 2 days ago. 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 3. Hyponatremia: Currently clear, but will need follow-up as noted above. TIME SPENT: Chart Review, examination and documentation 25 minutes. Allergies Coded Allergies: Contrast Media (Verified Allergy, Intermediate, 10/17/16) rash Vital Signs Vital Signs Date Time Temp Pulse Resp B/P (MAP) Pulse Ox O2 Delivery O2 Flow Rate FiO2 01/04/17 10:04 78 132/62 01/04/17 06:00 98.4 18 92 Room Air Laboratory Data CBC/BMP Laboratory Tests 01/04/17 11:00 Red Blood Count 3.16 L, Mean Corpuscular Volume 94.2, Mean Corpuscular Hemoglobin 30.9, Mean Corpuscular Hemoglobin Concent 32.8, Red Cell Distribution Width 14.2, Neutrophils (%) (Auto) 77.8 H, Lymphocytes (%) (Auto) 13.5 L, Monocytes (%) (Auto) 5.1 H, Eosinophils (%) (Auto) 1.5, Basophils (%) ( Auto) 0.5, Neutrophils # (Auto) 4.1, Lymphocytes # (Auto) 0.8 L, Monocytes # ( Auto) 0.3, Eosinophils # (Auto) 0.1, Basophils # (Auto) 0.0 Labs 24H Laboratory Tests 2 01/04/17 11:00: White Blood Count 5.2, Red Blood Count 3.16L, Hemoglobin 9.8L, Hematocrit 29.8L , Mean Corpuscular Volume 94.2, Mean Corpuscular Hemoglobin 30.9, Mean Corpuscular Hemoglobin Concent 32.8, Red Cell Distribution Width 14.2, Platelet Count 241, Neutrophils (%) (Auto) 77.8H, Lymphocytes (%) (Auto) 13.5L, Monocytes (%) (Auto) 5.1H, Eosinophils (%) (Auto) 1.5, Basophils (%) (Auto) 0.5 , Neutrophils # (Auto) 4.1, Lymphocytes # (Auto) 0.8L, Monocytes # (Auto) 0.3, Eosinophils # (Auto) 0.1, Basophils # (Auto) 0.0, Large Unclassified Cells % 1.7 , Large Unclassified Cells # 0.1 Current Medications Current Medications Current Medications Acetaminophen (Tylenol Tab) 650 mg Q6HP PRN PO PAIN OR FEVER Last administered on 01/04/17 10:04; Start 12/25/16 at 16:30; Stop 01/24/17 at 16:29 Albuterol/ Ipratropium (Duoneb (Ipr 0.5mg/Alb 2.5mg)) 3 ml Q2HP PRN NEB SOB/ WHEEZING Last administered on 01/04/17 07:25; Start 12/25/16 at 16:30; Stop 01/24/17 at 16:29 Albuterol/ Ipratropium (Duoneb (Ipr 0.5mg/Alb 2.5mg)) 3 ml RQ6H NEB Last administered on 01/01/17 13:40; Start 12/25/16 at 20:00; Stop 01/01/17 at 13:54 ; Status DC Apixaban (Eliquis) 5 mg BID PO Last administered on 01/04/17 10:05; Start 04/03 at 21:00; Stop 01/06/17 at 23:55 Ascorbic Acid (Vitamin C) 500 mg BID PO Last administered on 01/04/17 10:05; Start 12/25/16 at 21:00; Stop 01/24/17 at 20:59 Bisacodyl (Dulcolax Tab) 10 mg DAILYPRN PRN PO CONSTIPATION; Start 12/28/16 at 09:45; Stop 01/27/17 at 09:44 Budesonide/ Formoterol Fumarate (Symbicort 160/ 4.5mcg) 2 puff BID INH Last administered on 01/01/17 07:07; Start 12/25/16 at 21:00; Stop 01/01/17 at 10:42 ; Status DC Budesonide/ Formoterol Fumarate (Symbicort 160/ 4.5mcg) 2 puff BID INH Last administered on 01/04/17 07:25; Start 01/01/17 at 09:00; Stop 01/24/17 at 08:59 Budesonide/ Formoterol Fumarate (Symbicort 160/ 4.5mcg) 2 puff BIDP PRN INH DYSPNEA; Start 01/01/17 at 21:00; Stop 01/01/17 at 21:00; Status DC Magnesium Hydroxide (Milk Of Magnesia) 30 ml DAILYPRN PRN PO CONSTIPATION; Start 12/25/16 at 16:30; Stop 01/24/17 at 16:29 Montelukast Sodium (Singulair) 10 mg QHS PO Last administered on 01/03/17 20: 50; Start 12/25/16 at 21:00; Stop 01/24/17 at 20:59 Nadolol (Corgard) 40 mg DAILY PO Last administered on 01/04/17 10:04; Start at 09:00; Stop 01/25/17 at 08:59 Oxycodone HCl (Roxicodone, Oxyir) 5 mg Q4HP PRN PO PAIN 5-7; Start 12/25/16 at 16:30; Stop 01/03/17 at 23:55; Status Cancel Oxycodone HCl (Roxicodone, Oxyir) 10 mg Q4HP PRN PO SEVERE PAIN (PS 8-10); Start 12/25/16 at 16:30; Stop 01/03/17 at 23:55; Status Cancel Polyethylene Glycol (Miralax) 1 pkt DAILY PRN PO CONSTIPATION; Start 12/25/16 at 16:30; Stop 01/24/17 at 16:29 Pregabalin (Lyrica) 50 mg BID PO Last administered on 01/04/17 10:05; Start at 21:00; Stop 01/05/17 at 23:55 Senna/Docusate Sodium (Senokot S) 1 tab BID PO Last administered on 01/01/17 21:10; Start 12/25/16 at 21:00; Stop 01/24/17 at 20:59 Sodium Biphosphate/ Sodium Phosphate (Fleet Enema) 1 ea DAILYPRN PRN [place] CONSTIPATION; Start 12/25/16 at 16:30; Stop 01/24/17 at 16:29 Sodium Chloride (Sodium Chloride) 1 gm BID PO Last administered on 01/02/17 08 :40; Start 12/27/16 at 09:00; Stop 01/02/17 at 12:28; Status DC Sodium Chloride (Sodium Chloride) 1 gm DAILY PO Last administered on 01/04/17 10:04; Start 01/03/17 at 09:00; Stop 01/04/17 at 10:47; Status DC Tamsulosin HCl (Flomax) 0.4 mg QHS PO Last administered on 01/03/17 20:50; Start 12/25/16 at 21:00; Stop 01/24/17 at 20:59 Tramadol HCl (Ultram) 50 mg Q4HP PRN PO MILD PAIN (PS 1-4) Last administered on 01/03/17 06:33; Start 12/26/16 at 17:15; Stop 01/05/17 at 23:55 Tramadol HCl (Ultram) 100 mg Q6HP PRN PO MODERATE PAIN (PS 5-7) Last administered on 12/31/16 20:49; Start 12/26/16 at 17:15; Stop 01/05/17 at 23:55 Triamterene/HCTZ (Dyazide 37.5-25 Mg) 1 ea DAILY PO ; Start 01/05/17 at 09:00; Stop 02/04/17 at 08:59 Vitamin D (Vitamin D) 1,000 units DAILY PO Last administered on 01/04/17 10:04 ; Start 12/26/16 at 09:00; Stop 01/25/17 at 08:59 WILIAM PRETTY MD Jan 04, 2017 11:42
[2017-01-04 11:51] LABS: ALBUMIN/GLOBULIN RATIO 0.86 (1.00-1.93); ALKALINE PHOSPHATASE 59 U/L (45-117); ALT/SGPT 18 U/L (12-78); ANION GAP 7 MEQ/L (8-16); AST/SGOT 41 U/L (15-37); BILIRUBIN,TOTAL 0.8 MG/DL (0.2-1.0); BLOOD UREA NITROGEN 7 MG/DL (7-18); CARBON DIOXIDE LEVEL 28 MEQ/L (21-32); CHLORIDE LEVEL 106 MEQ/L (98-107); CREATININE FOR GFR 0.69 MG/DL (0.55-1.02); GLOMERULAR FILTRATION RATE > 60.0 (>39); GLUCOSE, FASTING 104 MG/DL (83-110); POTASSIUM SERUM 3.5 MEQ/L (3.5-5.1); SODIUM LEVEL 141 MEQ/L (136-145); TOTAL PROTEIN 6.5 GM/DL (6.4-8.2)
[2017-01-04 14:00] VITALS: BP 147/68
[2017-01-04 20:00] VITALS: BP 120/58
[2017-01-04] MEDS: MONTELUKAST 10 MG TAB PO SCH (20:31)
[2017-01-04] MEDS: TAMSULOSIN 0.4 MG CAP PO SCH (20:31)
[2017-01-05 05:47] VITALS: BP 133/60
[2017-01-05] MEDS: SYMBICORT 160/4.5MCG INHALER 6GM INH SCH (07:26)
[2017-01-05 08:49] VITALS: BP 133/60
[2017-01-05] MEDS: APIXABAN 5 MG TAB (ELIQUIS) PO SCH (08:49)
[2017-01-05] MEDS: NADOLOL 20MG TABLET PO SCH (08:49)
[2017-01-05] MEDS: ASCORBIC ACID 500 MG TAB PO SCH (08:49)
[2017-01-05] MEDS: PREGABALIN 50 MG CAP (LYRICA) PO SCH (08:49)
[2017-01-05] MEDS: VITAMIN D 1,000 INTERNATIONAL UNITS TABLET PO SCH (08:49)
[2017-01-05] MEDS: SENOKOT S TAB PO SCH (08:50)
[2017-01-05] MEDS ORDERED: DYAZIDE 37.5/25 CAP (TRIAM/HCTZ) PO SCH (09:00)
[2017-01-05] MEDS: IPRATROPIUM 0.5MG/ALBUTEROL 2.5MG INH SOL UD 3ML (DUONEB)(J7620) NEB PRN (09:12)
--- NOTE | 2017-01-06 22:09 | PMRDS ---
DATE OF ADMISSION: 12/25/2016 DATE OF DISCHARGE: 01/05/2017 DISCHARGE DIAGNOSES: 1. Rehabilitation of right distal fibula fracture status post open reduction, internal fixation with touchdown weightbearing status for the next five weeks or until cleared by orthopedics. 2. Atherosclerotic cardiovascular disease with atrial fibrillation for which she is on Eliquis and coronary artery disease and hypertension. 3. Chronic obstructive pulmonary disease (COPD)/asthma/obstructive sleep apnea. 4. Status post cervical cancer and total abdominal hysterectomy and bilateral salpingo-oophorectomy. ALLERGIES: CONTRAST DYE OR MEDIA. 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 She was seen by Dr. Szymanski at [facility] who did an open reduction, internal fixation of her right fibula and then casted the area. She was found to have acute kidney injury as well as moderate anemia following these events. The patient's initial injury was on 12/19/2016, and surgery was on 12/20/2016. It was delayed due to being on Eliquis for the atrial fibrillation involved with her atherosclerotic cardiovascular disease. The patient's case has been complicated by morbid obesity which did not allow her to do standard walker or crutch-bearing as she is unable to lift her weight with her arms. PROCEDURES PERFORMED ON THIS UNIT: None. DIAGNOSTIC AND LABORATORY: Shows the patient with a hemoglobin and hematocrit of 9.1 and 26.0 on 12/26, and yesterday this climbed to 9.8 and 29.8%. Chemistry showed mild hyponatremia of a low of 132 on 12/27, now 141 as of yesterday's lab, and acute kidney injury has cleared with current BUN 7 and creatinine of 0.69. The patient's albumin initially 2.5, now 3.0. HOSPITAL COURSE: The patient was admitted to acute rehab on 12/25/2016, and started on a program of physical and occupational therapy. The patient mainly focused on wheelchair mobility, transfers, activities of daily living (ADLs), but also started on some limited ambulation with the bariatric front-wheeled walker. In occupational therapy (OT), the patient has gone from minimum assist in dressing upper body, total assist in dressing lower body with 3+/5 upper extremity strength and minimum assist in bathing, maximum assist in transfers, standby assist in bed mobility, 4+ standing static and dynamic balance with good static sitting and dynamic sitting balance, to modified independence in transfers involving wheelchair, independent toileting, good standing static and dynamic balance, and in physical therapy with wheelchair 150 feet distance being supervision and touch assist and needing training on safety to contact guard to standby assistance in transfers, wheelchair distance of greater than 200 feet, and able to ambulate a couple of feet with bariatric wheeled walker and knowing her safety skills. The patient with reports of dyspnea on the retail support specialist of January 04, found to have some interstitial pulmonary edema. With diuretics, now feeling better and oxygenation has been good. COMPLICATIONS: None, except for getting cast wet during shower training and having to have fiberglass reinforcement. Therefore, the patient will be getting a new cast following discharge today. DISCHARGE PLAN INSTRUCTIONS: Patient discharged to home with to receive outpatient physical and occupational therapy 2-3 times a week for the next 2-4 weeks. She is to see her primary care, Carol Coffey, nurse practitioner, in two weeks, to be seen by orthopedics physician assistant baseball coach, Warren Patino on 01/09/2017. Use wheelchair for general mobility, and is on a regular diet. DISCHARGE MEDICATIONS: - Lyrica 50 mg twice a day - sodium chloride has been discontinued - tramadol 50 mg every four hours as needed for pain - Tylenol 325 mg tablets two tablets by mouth every four hours as needed for pain, not to exceed 4 grams per day - Ventolin HFA inhaler two puffs four times a day for shortness of breath - albuterol ipratropium nebulizer every four hours as needed for shortness of breath - Eliquis 5 mg twice a day for clot prevention secondary to atrial fibrillation and deep venous thrombosis (DVT) prophylaxis now - Symbicort 160/4.5 two puffs inhaled twice a day for asthma - Singulair 10 mg at bedtime for asthma - Nadolol 40 mg daily for hypertension - Senokot Plus one tablet twice a day for bowel program - Flomax 0.4 mg at bedtime to prevent urinary retention - vitamin D3 1000 international units daily TIME SPENT ON DISCHARGE: Greater than 35 minutes.
== END 2017-01-05 13:20 | disposition home or self-care (01) | DRG 560 ==
LOC: M PM&R 16:00
PROVIDERS: ADMIT Physical Medicine & Rehabilitation; ATTEND Physical Medicine & Rehabilitation
DX: S82.61XD Displaced fracture of lateral malleolus of right fibula, subsequent encounter for closed fracture with routine healing (principal); N17.9 Acute kidney failure, unspecified; E87.1 Hypo-osmolality and hyponatremia; Z68.43 Body mass index [BMI] 50.0-59.9, adult; N13.30 Unspecified hydronephrosis; J81.1 Chronic pulmonary edema; I25.10 Atherosclerotic heart disease of native coronary artery without angina pectoris; I48.91 Unspecified atrial fibrillation; I10 Essential (primary) hypertension; E66.01 Morbid (severe) obesity due to excess calories; D64.9 Anemia, unspecified; E88.09 Other disorders of plasma-protein metabolism, not elsewhere classified; R33.9 Retention of urine, unspecified; G47.33 Obstructive sleep apnea (adult) (pediatric); J44.9 Chronic obstructive pulmonary disease, unspecified; J45.909 Unspecified asthma, uncomplicated; Z91.041 Radiographic dye allergy status; Z85.41 Personal history of malignant neoplasm of cervix uteri; Z90.710 Acquired absence of both cervix and uterus; Z79.01 Long term (current) use of anticoagulants; Z79.899 Other long term (current) drug therapy; W18.42XA Slipping, tripping and stumbling without falling due to stepping into hole or opening, initial encounter; Y92.89 Other specified places as the place of occurrence of the external cause; Y93.89 Activity, other specified; Y99.8 Other external cause status

== ENCOUNTER → 2019-08-06 | Outpatient (REF) | payer MEDICARE, OTHER ==
[~2019-08-06] MED LIST changes: +CHOL100029 PO; +FLOM0.4C39 PO; -FLOM5CAP PO; +IPRA0.00 INH; -IPRASOL4 INH; -IRBE300T10; -IRBE300T10 PO; +IRBE300T7; +IRBE300T7 PO; -MONT10TA2; -MONT10TA2 PO; +MONT10TA4; +MONT10TA4 PO; +PREG50CA PO; +SENN-53 PO; -SENN1TAB2 PO; +SODI1TAB12 PO; +TRAM50TA2 PO; -VITAD1000T PO
== END ==
LOC: M LAB REF 13:42
PROVIDERS: ATTEND Nurse Practitioner Adult Health
DX: S31.109D Unspecified open wound of abdominal wall, unspecified quadrant without penetration into peritoneal cavity, subsequent encounter (principal); W18.30XD Fall on same level, unspecified, subsequent encounter; Y92.9 Unspecified place or not applicable

== ENCOUNTER 2019-09-11 15:05 | Emergency (ER) | payer MEDICARE, OTHER ==
[~2019-09-11] VITALS: Ht 152.4 cm; Wt 109.3 kg
[2019-09-11] MEDS ORDERED: FURO40TA2 PO (15:43)
[2019-09-11] MEDS ORDERED: NU-M1TAB PO (15:43)
[2019-09-11] MEDS ORDERED: IRBE300T7 PO (15:43)
[2019-09-11] MEDS ORDERED: XARE20TA PO (15:43)
[2019-09-11] MEDS ORDERED: MORPHINE 2 MG/ML 1ML VIAL (J2270) IV ONE (15:45)
[2019-09-11] MEDS ORDERED: ONDANSETRON 4MG/2ML VIAL (J2405) IV ONE (15:45)
[2019-09-11] MEDS ORDERED: CYCLOBENZAPRINE 5MG TABLET PO ONE (16:15)
[2019-09-11 16:20] LABS: BASO % 0.4 % (0.0-1.0); EOS # 0.1 10^3/uL (0.0-0.5); EOS % 1.5 % (0.0-3.0); HEMATOCRIT 38.6 % (36.0-47.0); HEMOGLOBIN 12.5 g/dl (12.0-15.5); LYMPH # 1.3 10^3/uL (1.5-5.0); LYMPH % 16.4 % (24.0-44.0); MEAN CORPUSCULAR HEMOGLOBIN 30.9 pg (27.0-33.0); MEAN CORPUSCULAR HGB CONC 32.4 g/dl (32.0-36.5); MEAN CORPUSCULAR VOLUME 95.5 fl (80.0-96.0); MONO # 0.6 10^3/uL (0.0-0.8); MONO % 7.1 % (0.0-5.0); NEUTROPHILS # 5.9 10^3/uL (1.5-8.5); NEUTROPHILS % 74.3 % (36.0-66.0); PLATELET COUNT, AUTOMATED 230 10^3/uL (150-450); RED BLOOD COUNT 4.04 10^6/uL (4.00-5.40); WHITE BLOOD COUNT 7.9 10^3/uL (4.0-10.0)
--- NOTE | 2019-09-11 16:46 | REP ---
CT study lumbar spine without contrast: History: Low back pain. Comparison is made with images from CT study dated December 23, 2016. CT findings: Preliminary digital cook pickled meat radiograph demonstrates a moderate thoracolumbar curve, levoconvex. Lumbar vertebral body heights are preserved. No fracture or collapse is appreciated. There is a grade 1, 7 mm, L4-5 spondylolisthesis due to degenerative disc disease, osteoarthritic facet disease, and a unilateral right-sided L4 pars defect. There is a vacuum phenomenon in the 4-5 disc. There is diffuse bulging of the 4-5 disc. There is severe central canal stenosis at L4-5 due to disc bulging, ligamentum flavum and facet hypertrophy, developmentally short pedicles, and the spondylolisthesis. Bilateral neural foraminal narrowing is present due to these factors as well. These findings, however, appear to be unchanged from the December 23, 2016 prior study. At L5-S1, there are degenerative disc changes with vacuum phenomenon in the disc. There is osteoarthritic facet hypertrophy bilaterally. At L3-4, there is also a mild degenerative spondylolisthesis, 3 mm, also grade 1. This is due to degenerative disc disease and facet hypertrophy. No spondylolysis is seen. There is moderate central canal stenosis at L3-4. At L2-3 and L1-2 there is minimal diffuse disc bulging. Borderline canal size. Impression: Degenerative spondylosis. There are grade 1 spondylolisthesis changes noted at L3-4 and L4-5, felt to be unchanged from the comparison study 2016. There is severe central canal stenosis at L4-5 due to the spondylolisthesis, diffuse disc bulging, ligamentum flavum and facet hypertrophy. Bilateral neural foraminal narrowing is present at L4-5 as well. There is moderate central canal stenosis at L3-4. No acute bony abnormality is noted. Electronically Signed by Isidro Gordon MD 09/11/2019 04:59 P
--- NOTE | 2019-09-11 16:50 | REP ---
CT abdomen and pelvis without IV or oral contrast: History: Low back pain. Comparison CT study is from December 23, 2016. CT findings: Digital preliminary molder closed molds radiograph demonstrates a moderate levoconvex curve at the thoracolumbar junction. Bowel gas pattern is normal. The lung bases show some mild linear fibrosis bilaterally. No pleural effusion or upper abdominal ascites. No focal hepatic or splenic lesion is appreciated. No abnormalities noted in the gallbladder or the pancreas. There is opaque ingested material in the gastric antrum, question antacids. No adrenal lesion is observed. There is minimal fullness of the intrarenal collecting system of the left kidney without intrarenal calculus on the left or ureteral calculus. The urinary bladder is somewhat distended. There is no evidence of hydronephrosis on the right. There is an intrarenal calculus in the right mid kidney 4 mm in greatest diameter. There is left colonic diverticulosis most pronounced in the sigmoid colon. There is no evidence of diverticulitis. No abdominal wall defect is appreciated. No evidence of free intraperitoneal air or abnormal fluid collection. Impression: Distended urinary bladder. Minimal hydronephrosis left kidney with no other apparent etiology. Intrarenal nephrolithiasis right kidney 4 mm stone. No right-sided hydronephrosis. Left colonic diverticulosis without CT evidence of diverticulitis. Scoliosis. Electronically Signed by Isidro Gordon MD 09/11/2019 04:59 P
[2019-09-11] MEDS ORDERED: LIDOCAINE 5% (LIDODERM) PATCH TD ONE (17:30)
[2019-09-11] MEDS ORDERED: LIDO5DIS41 TOP (17:46)
[2019-09-11] MEDS ORDERED: METH1TAB40 PO (17:46)
[2019-09-11 18:42] VITALS: BP 134/82
[2019-09-11] MEDS ORDERED: **NOTE PATIENT COMMENT** MISC XX SCH (21:00)
--- NOTE | 2019-09-12 12:40 | ED PDOC ---
Post-Departure Follow-Up ct ls spine faxed to [facility] Marbin Gaona MD Sep 12, 2019 12:40
== END 2019-09-11 18:46 | disposition home or self-care (01) ==
LOC: M ED 15:05
DX: M54.16 Radiculopathy, lumbar region (principal); M54.31 Sciatica, right side; M24.28 Disorder of ligament, vertebrae; M51.27 Other intervertebral disc displacement, lumbosacral region; M48.07 Spinal stenosis, lumbosacral region; K57.30 Diverticulosis of large intestine without perforation or abscess without bleeding; N20.0 Calculus of kidney; I48.91 Unspecified atrial fibrillation; I11.9 Hypertensive heart disease without heart failure; J45.909 Unspecified asthma, uncomplicated; I25.10 Atherosclerotic heart disease of native coronary artery without angina pectoris; Z85.41 Personal history of malignant neoplasm of cervix uteri; Z91.041 Radiographic dye allergy status; Z79.899 Other long term (current) drug therapy; Z79.51 Long term (current) use of inhaled steroids; Z79.01 Long term (current) use of anticoagulants
CPT/HCPCS: 36415; 72131; 74176; 80047; 85025; 96374; 96375; 99284; J2270; J2405

== ENCOUNTER → 2019-12-21 | Outpatient (CLI) | payer MEDICARE, OTHER ==
[~2019-12-21] MED LIST changes: +FURO40TA2 PO; +LIDO5DIS41 TOP; +METH1TAB40 PO; +NU-M1TAB PO; +XARE20TA PO
== END ==
LOC: M LABSMTC 09:44
PROVIDERS: ATTEND Orthopaedic Surgery
DX: Z03.818 Encounter for observation for suspected exposure to other biological agents ruled out (principal); Z11.59 Encounter for screening for other viral diseases

== ENCOUNTER → 2020-01-03 | Outpatient (CLI) | payer MEDICARE, OTHER | LOC: M LABSMTC 08:44 | PROVIDERS: ATTEND Orthopaedic Surgery | DX: Z11.59 Encounter for screening for other viral diseases (principal) ==

== ENCOUNTER → 2020-09-08 | Outpatient (CLI) | payer MEDICARE, OTHER ==
[~2020-09-08] MED LIST changes: +METH-1164 PO; -METH1TAB40 PO; +MONT10TA10; +MONT10TA10 PO; -MONT10TA4; -MONT10TA4 PO
[2020-09-08 13:47] LABS: PLATELET COUNT, AUTOMATED 215 10^3/uL (150-450)
[2020-09-08 13:55] LABS: INR 1.92; PARTIAL THROMBOPLASTIN TIME 39.1 SECONDS (24.2-38.5); PROTHROMBIN TIME 22.4 SECONDS (12.5-14.3)
== END ==
LOC: M PLALAB 11:31
PROVIDERS: ATTEND Physical Medicine & Rehabilitation
DX: Z01.812 Encounter for preprocedural laboratory examination (principal); Z79.899 Other long term (current) drug therapy

== ENCOUNTER → 2022-12-26 | Outpatient (CLI) | payer MEDICARE, OTHER ==
[~2022-12-26] MED LIST changes: -MONT10TA10; -MONT10TA10 PO; +MONT10TA97; +MONT10TA97 PO
== END ==
LOC: M WHC 12:57
PROVIDERS: ATTEND Nurse Practitioner Adult Health
DX: Z12.31 Encounter for screening mammogram for malignant neoplasm of breast (principal); N64.9 Disorder of breast, unspecified
CPT/HCPCS: 76642; 77066; G0279

== ENCOUNTER → 2023-01-09 | Outpatient (CLI) | payer MEDICARE, OTHER ==
[~2023-01-09] MED LIST changes: +**SFHN** LIDOCAINE 1% MDV 20ML VIAL ONE; +**SFHN** SODIUM BICARBONATE 8.4% 10MEQ 10ML VIAL ONE; +VITA500C24 PO
[2023-01-09 08:05] VITALS: TEMP 98.4
[2023-01-09 09:00] VITALS: BP 136/72; O2SAT 100
== END ==
LOC: M WHCPRO 07:53
PROVIDERS: ATTEND Nurse Practitioner Adult Health
DX: C50.411 Malignant neoplasm of upper-outer quadrant of right female breast (principal)

== ENCOUNTER → 2023-08-09 | Outpatient (CLI) | payer MEDICARE, OTHER ==
[~2023-08-09] MED LIST changes: -**SFHN** LIDOCAINE 1% MDV 20ML VIAL ONE; -**SFHN** SODIUM BICARBONATE 8.4% 10MEQ 10ML VIAL ONE; +ATOR1TAB19 PO; +IRBE300T25; +IRBE300T25 PO; -IRBE300T7; -IRBE300T7 PO; -NADO40TA; -NADO40TA PO; +NADO40TA6; +NADO40TA6 PO
== END ==
LOC: M ONCR 12:54
PROVIDERS: ATTEND General Practice
DX: C50.911 Malignant neoplasm of unspecified site of right female breast (principal); Z79.51 Long term (current) use of inhaled steroids; Z79.899 Other long term (current) drug therapy; Z91.041 Radiographic dye allergy status; Z92.21 Personal history of antineoplastic chemotherapy

== ENCOUNTER 2023-09-14 09:41 | Outpatient (RCR) | payer MEDICARE, OTHER | END 2023-09-16 | LOC: M ONCR 09:41 | PROVIDERS: ATTEND General Practice | DX: Z51.0 Encounter for antineoplastic radiation therapy (principal); C50.911 Malignant neoplasm of unspecified site of right female breast ==

== ENCOUNTER 2023-09-28 09:43 | Outpatient (RCR) | payer MEDICARE, OTHER | END 2023-10-16 | LOC: M ONCR 09:43 | PROVIDERS: ATTEND General Practice | DX: Z51.0 Encounter for antineoplastic radiation therapy (principal); C50.911 Malignant neoplasm of unspecified site of right female breast ==

== ENCOUNTER → 2024-04-08 | Outpatient (CLI) | payer MEDICARE, OTHER | LOC: M ONCR 10:32 | PROVIDERS: ATTEND General Practice | DX: Z08 Encounter for follow-up examination after completed treatment for malignant neoplasm (principal); Z85.3 Personal history of malignant neoplasm of breast; Z92.21 Personal history of antineoplastic chemotherapy; Z92.3 Personal history of irradiation; Z91.041 Radiographic dye allergy status; Z79.01 Long term (current) use of anticoagulants; Z79.51 Long term (current) use of inhaled steroids; Z79.899 Other long term (current) drug therapy; Z98.890 Other specified postprocedural states ==

== ENCOUNTER 2024-05-22 14:45 | Emergency (ER) | payer MEDICARE, OTHER ==
[~2024-05-22] VITALS: Ht 152.4 cm; Wt 84.1 kg
[~2024-05-22 14:45] MED LIST changes: +NADO40TA40; +NADO40TA40 PO; -NADO40TA6; -NADO40TA6 PO
[2024-05-22 17:05] LABS: BASO % 0.2 % (0.0-1.0); EOS # 0.1 10^3/uL (0.0-0.5); EOS % 0.6 % (0.0-3.0); HEMATOCRIT 35.1 % (36.0-47.0); HEMOGLOBIN 11.3 g/dl (12.0-15.5); LYMPH # 0.5 10^3/uL (1.5-5.0); LYMPH % 4.7 % (24.0-44.0); MEAN CORPUSCULAR HEMOGLOBIN 31.7 pg (27.0-33.0); MEAN CORPUSCULAR HGB CONC 32.2 g/dl (32.0-36.5); MEAN CORPUSCULAR VOLUME 98.3 fl (80.0-96.0); MONO # 0.6 10^3/uL (0.0-0.8); MONO % 6.1 % (2.0-8.0); NEUTROPHILS # 8.7 10^3/uL (1.5-8.5); NEUTROPHILS % 87.9 % (36.0-66.0); PLATELET COUNT, AUTOMATED 185 10^3/uL (150-450); RED BLOOD COUNT 3.57 10^6/uL (4.00-5.40); WHITE BLOOD COUNT 9.9 10^3/uL (4.0-10.0)
[2024-05-22 17:11] LABS: ERYTHROCYTE SEDIMENTATION RATE 46 mm/hr (0-30)
[2024-05-22 17:22] LABS: INR 1.71; PARTIAL THROMBOPLASTIN TIME 35.7 SECONDS (24.8-34.2); PROTHROMBIN TIME 20.2 SECONDS (12.5-14.5)
[2024-05-22 17:27] LABS: ALBUMIN 3.4 G/DL (3.2-5.2); ALKALINE PHOSPHATASE 91 U/L (35-104); ALT/SGPT 23 U/L (7.0-40); AST/SGOT 27 U/L (<34); BILIRUBIN,DIRECT 0.4 MG/DL (<0.4); BILIRUBIN,TOTAL 1.1 MG/DL (0.3-1.2); BLOOD UREA NITROGEN 16 MG/DL (9-23); C REACTIVE PROTEIN QUANTITATIV 2.15 MG/DL (<1.0); CALCIUM LEVEL 9.7 MG/DL (8.3-10.6); CARBON DIOXIDE LEVEL 29 MMOL/L (20-31); CHLORIDE LEVEL 98 MMOL/L (98-107); CREATININE FOR GFR 0.65 MG/DL (0.55-1.30); GLOMERULAR FILTRATION RATE > 60.0 (>39); GLUCOSE, FASTING 107 MG/DL (74-106); POTASSIUM SERUM 4.1 MMOL/L (3.5-5.1); SODIUM LEVEL 136 MMOL/L (136-145); TOTAL PROTEIN 6.5 G/DL (5.7-8.2)
[2024-05-22 17:39] LABS: PROCALCITONIN <0.04 ng/ml
[2024-05-22] MEDS: cefTRIAXone SOD 1 GM in DEXTROSE 5% (D5W) ADV/MINI-BAG 50 ML IV ONE (17:41)
[2024-05-22] MEDS ORDERED: CEPH500C PO (18:27)
[2024-05-22] MEDS: ACETAMINOPHEN 325 MG TAB PO ONE (18:39)
[2024-05-22 19:30] VITALS: BP 118/56; TEMP 97.8; O2SAT 95
== END 2024-05-22 19:37 | disposition home or self-care (01) ==
LOC: M ED 14:45
DX: L03.116 Cellulitis of left lower limb (principal); I48.91 Unspecified atrial fibrillation; I10 Essential (primary) hypertension; E78.5 Hyperlipidemia, unspecified; J45.909 Unspecified asthma, uncomplicated; Z85.3 Personal history of malignant neoplasm of breast; Z91.041 Radiographic dye allergy status; Z79.1 Long term (current) use of non-steroidal anti-inflammatories (NSAID); Z79.51 Long term (current) use of inhaled steroids; Z79.2 Long term (current) use of antibiotics; Z79.899 Other long term (current) drug therapy
CPT/HCPCS: 80048; 80076; 83605; 84145; 85025; 85610; 85652; 85730; 86140; 87040; 96365; 99284; J0696

== ENCOUNTER → 2024-10-07 | Outpatient (CLI) | payer MEDICARE, OTHER ==
[~2024-10-07] MED LIST changes: +CEPH500C PO
== END ==
LOC: M ONCR 10:19
PROVIDERS: ATTEND General Practice
DX: Z08 Encounter for follow-up examination after completed treatment for malignant neoplasm (principal); Z85.3 Personal history of malignant neoplasm of breast; Z92.21 Personal history of antineoplastic chemotherapy; Z98.890 Other specified postprocedural states; Z92.3 Personal history of irradiation; Z91.041 Radiographic dye allergy status; Z79.01 Long term (current) use of anticoagulants; Z79.899 Other long term (current) drug therapy

== ENCOUNTER 2025-05-15 13:21 | Emergency (ER) | payer MEDICARE, OTHER ==
[~2025-05-15] VITALS: Ht 147.3 cm; Wt 75.6 kg
[~2025-05-15 13:21] MED LIST changes: -FLOM0.4C39 PO; +LIDO1ADH93 TOP; -LIDO5DIS41 TOP; -PREG50CA PO; +PREG50CA87 PO; +TAMS-18 PO
[2025-05-15 13:24] VITALS: TEMP 97.6; O2SAT 97
[2025-05-15 14:14] VITALS: BP 188/88
== END 2025-05-15 14:36 | disposition home or self-care (01) ==
LOC: M ED 13:21
DX: I10 Essential (primary) hypertension (principal); I25.2 Old myocardial infarction; J45.909 Unspecified asthma, uncomplicated; C55 Malignant neoplasm of uterus, part unspecified; C50.919 Malignant neoplasm of unspecified site of unspecified female breast; Z91.041 Radiographic dye allergy status; Z79.1 Long term (current) use of non-steroidal anti-inflammatories (NSAID); Z79.51 Long term (current) use of inhaled steroids; Z79.2 Long term (current) use of antibiotics; Z79.899 Other long term (current) drug therapy; Z79.01 Long term (current) use of anticoagulants